=== PATIENT | female | born 1950 | race Caucasian/White ===

== ENCOUNTER 2017-10-26 10:10 | Emergency (ER) | payer MEDICARE, BC ==
[2017-10-26 10:23] VITALS: BP 138/58
--- NOTE | 2017-10-26 11:43 | EDM.PDOC ---
ED HPI GENERAL MEDICAL PROBLEM - General Chief Complaint: Respiratory Problem Stated Complaint: RESPIRATORY ISSUES/DIABETIC Time Seen by Provider: 10/26/17 11:07 Source of Information: Reports: Patient History Limitations: Reports: No Limitations - History of Present Illness INITIAL COMMENTS - FREE TEXT/NARRATIVE: Patient presents to the E.D. complaining of sinus congestion, runny nose, post nasal gtt, and mildly productive cough. Patient states symptoms initially started this past weakened believed to be allergies. Over the course of the week the symptoms have remained persistent. On developed mild productive cough. States she also had some episodes of tactile fever with nothing documented. This morning she was afebrile. She denies any shortness of breath, chest pain, sore throat, ear pain, rash, pain with urination, diarrhea, or recent sick exposures. Of note she did have a headache last night and throughout the course of the evening without stiff neck. She did get her influenza vaccine along with pneumococcal vaccine. She is status post kidney transplant approximately one year ago. She was diagnosed with sinus infection 2 weeks ago and was placed on amoxicillin with resolution. She questions if symptoms she is currently experiencing are viral in etiology. - Related Data Allergies Allergy/AdvReac Type Severity Reaction Status Date / Time omeprazole [From Prilosec] Allergy Cannot Verified 10/26/17 10:23 Remember omeprazole magnesium Allergy Hives Verified 10/26/17 10:23 [From Prilosec] Home Meds: Home Meds Aspirin 81 mg PO DAILY 12/24/15 [History] Calcium Acetate [PhosLo] 4 tab PO TID 12/24/15 [History] Docusate Sodium [Colace] 100 mg PO DAILY 12/24/15 [History] Fluticasone Propionate [Flonase] 1 spray NASBOTH BID 12/24/15 [History] Gabapentin [Neurontin] 100 mg PO DAILY 12/24/15 [History] Pantoprazole [ProTONIX Granules] 40 mg PO DAILY 12/24/15 [History] Paricalcitol [Zemplar] 1 mcg INJECT DAILY 12/24/15 [History] Sertraline [Zoloft] 100 mg PO DAILY 12/24/15 [History] Topiramate [Topamax] 75 mg PO BID 12/24/15 [History] atorvaSTATin [Lipitor] 20 mg PO DAILY 12/24/15 [History] traMADol [Ultram] 50 mg PO Q6H PRN 12/24/15 [History] Acetaminophen 500 mg PO ASDIRECTED PRN 06/27/16 [History] Calcium Carbonate [Calcium] 1 - 2 tab PO ASDIRECTED PRN 06/27/16 [History] Diclofenac Sodium [Voltaren 1% Gel] 1 applicful TRDERM ASDIRECTED PRN 06/27/16 [ History] Fluticasone Propionate [Flonase] 2 puff INH ASDIRECTED PRN 06/27/16 [History] Ketorolac [Acular 0.5% Ophth Soln] 1 - 2 drop EYEBOTH ASDIRECTED 06/27/16 [ History] Lactulose 15 - 30 ml PO ASDIRECTED PRN 06/27/16 [History] Polyethylene Glycol 3350 1 capful PO ASDIRECTED PRN 06/27/16 [History] traZODone 1 - 2 tab PO DAILY 06/27/16 [History] Past Medical History HEENT History: Reports: Glaucoma Cardiovascular History: Reports: High Cholesterol Other Respiratory History: in winter time uses inhaler when get a bad cough or cold. 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 - Past Surgical History HEENT Surgical History: Reports: Tonsillectomy Other HEENT Surgeries/Procedures: several eye surgeries, GI Surgical History: Reports: Appendectomy, Cholecystectomy, Colonoscopy, Hernia Repair/Other Musculoskeletal Surgical History: Reports: Arthroscopic Knee, Knee Replacement Social & Family History - Tobacco Use Smoking Status *Q: Never Smoker - Caffeine Use Caffeine Use: Reports: Coffee, Tea - Recreational Drug Use Recreational Drug Use: No Drug Use in Last 12 Months: No ED ROS GENERAL - Review of Systems Review Of Systems: See Below Constitutional: Reports: Fever (tactile). Denies: Chills, Decreased Appetite HEENT: Reports: Rhinitis. Denies: Ear Pain, Throat Pain Respiratory: Reports: Cough, Sputum. Denies: Shortness of Breath, Wheezing, Pleuritic Chest Pain, Hemoptysis Cardiovascular: Reports: No Symptoms GI/Abdominal: Reports: No Symptoms Musculoskeletal: Reports: Muscle Pain (generalized) Skin: Reports: No Symptoms Neurological: Reports: Headache (intermittent) ED EXAM, GENERAL - Physical Exam Exam: See Below Exam Limited By: No Limitations General Appearance: Alert, WD/WN, No Apparent Distress Eye Exam: Bilateral Eye: PERRL Ears: Normal External Exam, Normal Canal, Hearing Grossly Normal, Normal TMs Nose: Normal Inspection, Nasal Swelling, Nasal Drainage, Clear Rhinorrhea Throat/Mouth: Normal Inspection, Normal Oropharynx, Normal Voice, No Airway Compromise Neck: Normal Inspection, Supple, Non-Tender, Full Range of Motion. No: Lymphadenopathy (L), Lymphadenopathy (R) Respiratory/Chest: No Respiratory Distress, Lungs Clear, Normal Breath Sounds, No Accessory Muscle Use Cardiovascular: Normal Peripheral Pulses, Regular Rate, Rhythm Peripheral Pulses: 2+: Radial (R) GI/Abdominal: Normal Bowel Sounds, Soft, Non-Tender, No Organomegaly, No Distention Extremities: Normal Inspection, Normal Range of Motion, Non-Tender, Normal Capillary Refill, Pedal Edema (trace bilaterally, compression socks on. ) Neurological: Alert, Oriented, CN II-XII Intact, Normal Cognition Psychiatric: Normal Affect, Normal Mood Skin Exam: Warm, Dry, Intact, Normal Color, No Rash Course - Vital Signs Last Recorded V/S: Last Vital Signs Temp 97.6 F 10/26/17 10:19 Pulse 77 10/26/17 10:19 Resp 18 10/26/17 10:19 BP 138/58 L 10/26/17 10:19 Pulse Ox 96 10/26/17 10:19 - Orders/Labs/Meds Orders: Active Orders 24 hr Category Date Time Status Chest 2V [CR] Stat Exams 10/26/17 11:31 Taken Labs: Laboratory Tests 10/26/17 10/26/17 Range/Units 11:55 11:55 WBC 4.47 (3.98-10.04) K/mm3 RBC 4.77 (3.98-5.22) M/mm3 Hgb 12.2 (11.2-15.7) gm/L Hct 41.2 (34.1-44.9) % MCV 86.4 (79.4-94.8) fl MCH 25.6 (25.6-32.2) pg MCHC 29.6 L (32.2-35.5) g/dl RDW Std Deviation 56.3 H (36.4-46.3) fL Plt Count 211 (182-369) K/mm3 MPV 8.9 L (9.4-12.3) fl Neut % (Auto) 77.2 H (34.0-71.1) % Lymph % (Auto) 8.1 L (19.3-51.7) % Ransom % (Auto) 12.1 (4.7-12.5) % Eos % (Auto) 2.0 (0.7-5.8) Baso % (Auto) 0.4 (0.1-1.2) % Neut # (Auto) 3.45 (1.56-6.13) K/mm3 Lymph # (Auto) 0.36 L (1.18-3.74) K/mm3 Ransom # (Auto) 0.54 H (0.24-0.36) K/mm3 Eos # (Auto) 0.09 (0.04-0.36) K/mm3 Baso # (Auto) 0.02 (0.01-0.08) K/mm3 Manual Slide Review Abnormal smear Sodium 141 (136-145) mEq/L Potassium 5.0 (3.5-5.1) mEq/L Chloride 107 (98-107) mEq/L Carbon Dioxide 25 (21-32) mEq/L Anion Gap 14.0 (5-15) BUN 28 H (7-18) mg/dL Creatinine 1.3 H (0.55-1.02) mg/dL Est Cr Clr Drug Dosing 32.30 mL/min Estimated GFR (MDRD) 41 (>60) mL/min BUN/Creatinine Ratio 21.5 H (14-18) Glucose 184 H (80-115) mg/dL Calcium 8.5 (8.5-10.1) mg/dL Total Bilirubin 0.5 (0.2-1.0) mg/dL AST 19 (15-37) U/L ALT 18 (14-59) U/L Alkaline Phosphatase 114 (46-116) U/L C-Reactive Protein 2.1 H* (<1.0) mg/dL Total Protein 7.0 (6.4-8.2) g/dl Albumin 3.2 L (3.4-5.0) g/dl Globulin 3.8 gm/dL Albumin/Globulin Ratio 0.8 L (1-2) - Re-Assessments/Exams Free Text/Narrative Re-Assessment/Exam: Labs reviewed: White blood cell count 4.47, hemoglobin 12.2, neutrophil percentage is 77.2, with slight percentage is8.1. Sodium 141, potassium 5.0, BUN 28, AG 14.0, creatinine 1.3, glucose 184, CRP 2.1. Influenza screen was positive for influenza A. She results of labs and influenza screen with patient. Symptoms started morning thus we are out of the 48 hour window for treatment. In addition creatinine 1.3 is baseline per patient. CXR reviewed with Dr. Green.No obvious pulmonary infiltrates noted. Final Interpretation pending. I offered to admit the patient since she is at high risk for doing bad with current infection. Patient refuses to be admitted to the hospital. Will discharge patient home with instructions as documented. Departure - Departure Time of Disposition: 12:55 Disposition: Home, Self-Care 01 Condition: Good Clinical Impression: Influenza, Influenza A - Discharge Information Instructions: Upper Respiratory Infection, Adult, [id number] Referrals: Galina Cohen, [employer]LECT[employer]ICAL ENGINEER [Primary Care Provider] - Forms: ED Department Discharge Additional Instructions: As discussed you have influenza A which is a viral infection that will run its course normally over the next 7-10 days. You may be at risk for doing worse due to your history and current medications you are on. Suggest pushing the fluids ensure adequate rest. Take Tylenol as needed for generalized body aches, headaches, and fever. Suggest returning back to the ED if you develop any new or worsening symptoms. - My Orders Last 24 Hours: My Active Orders 10/26/17 11:31 Chest 2V [CR] Stat - Assessment/Plan Last 24 Hours: My Active Orders 10/26/17 11:31 Chest 2V [CR] Stat
--- NOTE | 2017-10-26 16:06 | CR ---
Chest: Two views of the chest were obtained. Comparison: No prior chest x-ray. Heart size is slightly enlarged. Pulmonary vessels are minimally congested. Lungs otherwise are clear. Mild degenerative change is scattered within the spine. Impression: 1. Cardiomegaly with slight pulmonary vascular congestion. Uncertain if this is acute or chronic. 2. No pneumonia is identified. Difficult to exclude mild superimposed bronchitis. Diagnostic code #3
== END 2017-10-26 13:25 | disposition home or self-care (01) ==
LOC: JD.ED 10:10
DX: J10.1 Influenza due to other identified influenza virus with other respiratory manifestations (principal); E78.00 Pure hypercholesterolemia, unspecified; Z88.8 Allergy status to other drugs, medicaments and biological substances; Z79.82 Long term (current) use of aspirin; Z79.899 Other long term (current) drug therapy
CPT/HCPCS: 36415; 71020; 71020-26; 80053; 85025; 86140; 87804; 99284

== ENCOUNTER 2018-07-01 20:26 | Inpatient (IN) | payer MEDICARE, BC ==
[2018-07-01] MEDS ORDERED: Furosemide 40 MG/4 ML VIAL IVPUSH ONE (21:02)
--- NOTE | 2018-07-01 21:54 | EDM.PDOC ---
ED HPI GENERAL MEDICAL PROBLEM - General Chief Complaint: Respiratory Problem Stated Complaint: CHILLS VOMITING Time Seen by Provider: 07/01/18 20:38 Source of Information: Reports: Patient, Family () History Limitations: Reports: No Limitations - History of Present Illness INITIAL COMMENTS - FREE TEXT/NARRATIVE: The patient states that she developed dyspnea at rest, nausea, and vomiting this morning. She denies orthopnea. She states that she has not been wheezing. She states that she has been coughing, productive of clear sputum. She reports dysuria and urinary frequency for the past 2 days. No recent fever or chills. No recent constipation or diarrhea. No recent abdominal pain. The patient states that she has not had similar dyspnea in the past, however, she reports frequent urinary tract infections with similar urinary symptoms. Here in the ED, the patient is found to be tachycardic and tachypneic, saturating 87% on room air, 93% on 3 L of oxygen per nasal cannula. - Related Data Allergies Allergy/AdvReac Type Severity Reaction Status Date / Time omeprazole [From Prilosec] Allergy Cannot Verified 07/01/18 20:39 Remember omeprazole magnesium Allergy Hives Verified 07/01/18 20:39 [From Prilosec] Home Meds: Home Meds Aspirin 81 mg PO DAILY 12/24/15 [History] Calcium Acetate [PhosLo] 4 tab PO TID 12/24/15 [History] Docusate Sodium [Colace] 100 mg PO DAILY 12/24/15 [History] Fluticasone Propionate [Flonase] 1 spray NASBOTH BID 12/24/15 [History] Gabapentin [Neurontin] 100 mg PO DAILY 12/24/15 [History] Pantoprazole [ProTONIX Granules] 40 mg PO DAILY 12/24/15 [History] Paricalcitol [Zemplar] 1 mcg INJECT DAILY 12/24/15 [History] Sertraline [Zoloft] 100 mg PO DAILY 12/24/15 [History] Topiramate [Topamax] 75 mg PO BID 12/24/15 [History] atorvaSTATin [Lipitor] 20 mg PO DAILY 12/24/15 [History] traMADol [Ultram] 50 mg PO Q6H PRN 12/24/15 [History] Acetaminophen 500 mg PO ASDIRECTED PRN 06/27/16 [History] Calcium Carbonate [Calcium] 1 - 2 tab PO ASDIRECTED PRN 06/27/16 [History] Diclofenac Sodium [Voltaren 1% Gel] 1 applicful TRDERM ASDIRECTED PRN 06/27/16 [ History] Fluticasone Propionate [Flonase] 2 puff INH ASDIRECTED PRN 06/27/16 [History] Ketorolac [Acular 0.5% Ophth Soln] 1 - 2 drop EYEBOTH ASDIRECTED 06/27/16 [ History] Lactulose 15 - 30 ml PO ASDIRECTED PRN 06/27/16 [History] Polyethylene Glycol 3350 1 capful PO ASDIRECTED PRN 06/27/16 [History] traZODone 1 - 2 tab PO DAILY 06/27/16 [History] Past Medical History HEENT History: Reports: Glaucoma Cardiovascular History: Reports: High Cholesterol Genitourinary History: Reports: Chronic Renal Insuffiency (on HD until kidney transplant 08/10/2016) COURT ORDERLY History: Reports: Neurological History: Reports: Seizure Psychiatric History: Reports: Anxiety, Depression Endocrine/Metabolic History: Reports: Diabetes, Type II, Obesity/BMI 30+ - Past Surgical History HEENT Surgical History: Reports: Laser Surgery (x 4 or 5), Tonsillectomy GI Surgical History: Reports: Appendectomy, Cholecystectomy, Colonoscopy, Hernia , Abdominal Female Surgical History: Reports: Other (See Below) (Kidney transplant 2015) Musculoskeletal Surgical History: Reports: Arthroscopic Knee (left), Knee Replacement (right) Social & Family History - Tobacco Use Smoking Status *Q: Never Smoker - Caffeine Use Caffeine Use: Reports: None - Recreational Drug Use Recreational Drug Use: No ED ROS GENERAL - Review of Systems Review Of Systems: ROS reveals no pertinent complaints other than HPI. ED EXAM, GENERAL - Physical Exam Exam: See Below Exam Limited By: No Limitations General Appearance: Alert, WD/WN, Mild Distress (Appears somewhat dyspneic) Eye Exam: Bilateral Eye: EOMI, Normal Inspection Ears: Normal External Exam, Hearing Grossly Normal Nose: Normal Inspection, No Blood Throat/Mouth: Normal Inspection, Normal Lips, Normal Voice, No Airway Compromise Head: Atraumatic, Normocephalic Neck: Normal Inspection, Full Range of Motion Respiratory/Chest: No Accessory Muscle Use, Crackles (to 1/[address] up bilaterally) . No: Rhonchi, Wheezing, Prolonged Expiration Cardiovascular: Normal Peripheral Pulses, No Gallop, No JVD, No Rub, Tachycardia (regular) Peripheral Pulses: 4+: Radial (L), Radial (R) GI/Abdominal: Normal Bowel Sounds, Soft, Non-Tender, No Organomegaly, No Distention, No Abnormal Bruit, No Mass, Other (Obese) Rectal (Female) Exam: Deferred Back Exam: Normal Inspection, Full Range of Motion, NT Extremities: Normal Inspection, Normal Range of Motion, Normal Capillary Refill , Other (1+ pretibial edema bilaterally) Neurological: Alert, Oriented, Normal Cognition, No Motor/Sensory Deficits Psychiatric: Normal Affect Skin Exam: Warm, Dry, Intact, Normal Color, No Rash EKG INTERPRETATION EKG Date: 07/01/18 Time: 21:26 Rhythm: NSR Rate (Beats/Min): 94 [place]: Normal P-Wave: Present QRS: Normal ST-T: Normal QT: Normal Comparison: NA - No Prior EKG Course - Vital Signs Last Recorded V/S: Last Vital Signs Temp 37.7 C 07/01/18 20:36 Pulse 84 07/01/18 23:31 Resp 35 H 07/01/18 23:31 BP 163/50 H 07/01/18 23:31 Pulse Ox 96 07/01/18 23:31 - Orders/Labs/Meds Orders: Active Orders 24 hr Category Date Time Status Admission Status [Patient Status] [ADT] Routine ADT 07/02/18 00:26 Ordered BIPAP Adult [RT BiPAP/CPAP] [RC] ASDIRECTED Care 07/01/18 20:59 Active EKG Documentation Completion [RC] STAT Care 07/01/18 21:00 Active Alberto Catheter Insertion [Insert Urinary Catheter] [OM. Care 07/01/18 21:15 Ordered PC] Q24H Urinary Catheter Assessment [RC] ASDIRECTED Care 07/01/18 21:02 Active Chest 1V Frontal [CR] Stat Exams 07/01/18 21:00 Taken CULTURE BLOOD [BC] Stat Lab 07/01/18 21:10 Received CULTURE BLOOD [BC] Stat Lab 07/01/18 21:20 Received CULTURE URINE [RM] Stat Lab 07/01/18 21:37 Received Blood Culture x2 Reflex Set [OM.PC] Stat Oth 07/01/18 21:00 Ordered Labs: Laboratory Tests 07/01/18 07/01/18 07/01/18 Range/Units 21:10 21:10 21:10 WBC 3.17 L (3.98-10.04) K/mm3 RBC 3.87 L (3.98-5.22) M/mm3 Hgb 10.5 L (11.2-15.7) gm/L Hct 36.8 (34.1-44.9) % MCV 95.1 H (79.4-94.8) fl MCH 27.1 (25.6-32.2) pg MCHC 28.5 L (32.2-35.5) g/dl RDW Std Deviation 52.7 H (36.4-46.3) fL Plt Count 156 L (182-369) K/mm3 MPV 10.2 (9.4-12.3) fl Neutrophils % (Manual) 89 H (40-60) % Band Neutrophils % 0 (0-10) % Lymphocytes % (Manual) 7 L (20-40) % Atypical Lymphs % 0 % Monocytes % (Manual) 4 (2-10) % Eosinophils % (Manual) 0 L (0.7-5.8) % Basophils % (Manual) 0 L (0.1-1.2) Platelet Estimate Adequate Polychromasia Few Hypochromasia 1+ slight Anisocytosis 1+ slight Ovalocytes 1+ slight RBC Morph Comment Not Reportable PT 12.9 H (9.5-12.1) SECONDS INR 1.19 APTT 34 H (24-31) SECONDS D-Dimer, Quantitative 3.64 H (0.19-0.50) mg/L Puncture Site ABG pH (7.35-7.45) ABG pCO2 (35.0-45.0) mmHg ABG pO2 (80.0-100.0) mmHg ABG HCO3 (22.0-26.0) meq/L ABG O2 Saturation (96.0-97.0) % ABG Base Excess (-2-2.0) Bienvenido Test A-a Gradient mmHg O2 Delivery Device Oxygen Flow Rate FiO2 (21.00-100.00) % Pressure Support cmH2O Sodium 140 (136-145) mEq/L Potassium 4.7 (3.5-5.1) mEq/L Chloride 109 H (98-107) mEq/L Carbon Dioxide 18 L (21-32) mEq/L Anion Gap 17.7 H (5-15) BUN 26 H (7-18) mg/dL Creatinine 1.9 H (0.55-1.02) mg/dL Est Cr Clr Drug Dosing 26.16 mL/min Estimated GFR (MDRD) 26 (>60) mL/min BUN/Creatinine Ratio 13.7 L (14-18) Glucose 358 H (80-115) mg/dL Lactic Acid (0.4-2.0) mmol/L Calcium 7.6 L (8.5-10.1) mg/dL Total Bilirubin 0.8 (0.2-1.0) mg/dL AST 47 H (15-37) U/L ALT 30 (14-59) U/L Alkaline Phosphatase 134 H (46-116) U/L Troponin I < 0.017 (0.00-0.056) ng/mL NT-Pro-B Natriuret Pep (0-125) pg/mL Total Protein 6.7 (6.4-8.2) g/dl Albumin 3.4 (3.4-5.0) g/dl Globulin 3.3 gm/dL Albumin/Globulin Ratio 1.0 (1-2) Urine Color (Yellow) Urine Appearance (Clear) Urine pH (5.0-8.0) Ur Specific [place] (1.005-1.030) Urine Protein (Negative) Urine Glucose (UA) (Negative) Urine Ketones (Negative) Urine Occult Blood (Negative) Urine Nitrite (Negative) Urine Bilirubin (Negative) Urine Urobilinogen (0.2-1.0) Ur Leukocyte Esterase (Negative) Urine RBC (0-5) /hpf Urine WBC (0-5) /hpf Urine WBC Clumps (NOT SEEN) /hpf Ur Epithelial Cells (0-5) /hpf Urine Bacteria (FEW) /hpf Hyaline Casts (0-5) /lpf Urine Mucus (FEW) /hpf Ketones (0.0-0.3) mM 07/01/18 07/01/18 07/01/18 Range/Units 21:10 21:10 21:10 WBC (3.98-10.04) K/mm3 RBC (3.98-5.22) M/mm3 Hgb (11.2-15.7) gm/L Hct (34.1-44.9) % MCV (79.4-94.8) fl MCH (25.6-32.2) pg MCHC (32.2-35.5) g/dl RDW Std Deviation (36.4-46.3) fL Plt Count (182-369) K/mm3 MPV (9.4-12.3) fl Neutrophils % (Manual) (40-60) % Band Neutrophils % (0-10) % Lymphocytes % (Manual) (20-40) % Atypical Lymphs % % Monocytes % (Manual) (2-10) % Eosinophils % (Manual) (0.7-5.8) % Basophils % (Manual) (0.1-1.2) Platelet Estimate Polychromasia Hypochromasia Anisocytosis Ovalocytes RBC Morph Comment PT (9.5-12.1) SECONDS INR APTT (24-31) SECONDS D-Dimer, Quantitative (0.19-0.50) mg/L Puncture Site ABG pH (7.35-7.45) ABG pCO2 (35.0-45.0) mmHg ABG pO2 (80.0-100.0) mmHg ABG HCO3 (22.0-26.0) meq/L ABG O2 Saturation (96.0-97.0) % ABG Base Excess (-2-2.0) Bienvenido Test A-a Gradient mmHg O2 Delivery Device Oxygen Flow Rate FiO2 (21.00-100.00) % Pressure Support cmH2O Sodium (136-145) mEq/L Potassium (3.5-5.1) mEq/L Chloride (98-107) mEq/L Carbon Dioxide (21-32) mEq/L Anion Gap (5-15) BUN (7-18) mg/dL Creatinine (0.55-1.02) mg/dL Est Cr Clr Drug Dosing mL/min Estimated GFR (MDRD) (>60) mL/min BUN/Creatinine Ratio (14-18) Glucose (80-115) mg/dL Lactic Acid 2.1 H (0.4-2.0) mmol/L Calcium (8.5-10.1) mg/dL Total Bilirubin (0.2-1.0) mg/dL AST (15-37) U/L ALT (14-59) U/L Alkaline Phosphatase (46-116) U/L Troponin I (0.00-0.056) ng/mL NT-Pro-B Natriuret Pep 4586 H (0-125) pg/mL Total Protein (6.4-8.2) g/dl Albumin (3.4-5.0) g/dl Globulin gm/dL Albumin/Globulin Ratio (1-2) Urine Color (Yellow) Urine Appearance (Clear) Urine pH (5.0-8.0) Ur Specific [place] (1.005-1.030) Urine Protein (Negative) Urine Glucose (UA) (Negative) Urine Ketones (Negative) Urine Occult Blood (Negative) Urine Nitrite (Negative) Urine Bilirubin (Negative) Urine Urobilinogen (0.2-1.0) Ur Leukocyte Esterase (Negative) Urine RBC (0-5) /hpf Urine WBC (0-5) /hpf Urine WBC Clumps (NOT SEEN) /hpf Ur Epithelial Cells (0-5) /hpf Urine Bacteria (FEW) /hpf Hyaline Casts (0-5) /lpf Urine Mucus (FEW) /hpf Ketones 0.23 (0.0-0.3) mM 07/01/18 07/01/18 07/01/18 Range/Units 21:25 21:37 23:35 WBC (3.98-10.04) K/mm3 RBC (3.98-5.22) M/mm3 Hgb (11.2-15.7) gm/L Hct (34.1-44.9) % MCV (79.4-94.8) fl MCH (25.6-32.2) pg MCHC (32.2-35.5) g/dl RDW Std Deviation (36.4-46.3) fL Plt Count (182-369) K/mm3 MPV (9.4-12.3) fl Neutrophils % (Manual) (40-60) % Band Neutrophils % (0-10) % Lymphocytes % (Manual) (20-40) % Atypical Lymphs % % Monocytes % (Manual) (2-10) % Eosinophils % (Manual) (0.7-5.8) % Basophils % (Manual) (0.1-1.2) Platelet Estimate Polychromasia Hypochromasia Anisocytosis Ovalocytes RBC Morph Comment PT (9.5-12.1) SECONDS INR APTT (24-31) SECONDS D-Dimer, Quantitative (0.19-0.50) mg/L Puncture Site Rt radial Rt radial ABG pH 7.34 L 7.35 (7.35-7.45) ABG pCO2 29.5 L 32.8 L (35.0-45.0) mmHg ABG pO2 83.0 70.0 L (80.0-100.0) mmHg ABG HCO3 15.5 L 17.6 L (22.0-26.0) meq/L ABG O2 Saturation 95.7 L 91.4 L (96.0-97.0) % ABG Base Excess -8.8 L -6.7 L (-2-2.0) Bienvenido Test Positive Positive A-a Gradient 85 68 mmHg O2 Delivery Device Bipap Bipap Oxygen Flow Rate 3.0 2.0 FiO2 32.00 28.00 (21.00-100.00) % Pressure Support 8.0 cmH2O Sodium (136-145) mEq/L Potassium (3.5-5.1) mEq/L Chloride (98-107) mEq/L Carbon Dioxide (21-32) mEq/L Anion Gap (5-15) BUN (7-18) mg/dL Creatinine (0.55-1.02) mg/dL Est Cr Clr Drug Dosing mL/min Estimated GFR (MDRD) (>60) mL/min BUN/Creatinine Ratio (14-18) Glucose (80-115) mg/dL Lactic Acid (0.4-2.0) mmol/L Calcium (8.5-10.1) mg/dL Total Bilirubin (0.2-1.0) mg/dL AST (15-37) U/L ALT (14-59) U/L Alkaline Phosphatase (46-116) U/L Troponin I (0.00-0.056) ng/mL NT-Pro-B Natriuret Pep (0-125) pg/mL Total Protein (6.4-8.2) g/dl Albumin (3.4-5.0) g/dl Globulin gm/dL Albumin/Globulin Ratio (1-2) Urine Color Yellow (Yellow) Urine Appearance Clear (Clear) Urine pH 6.5 (5.0-8.0) Ur Specific [place] 1.025 (1.005-1.030) Urine Protein 3+ H (Negative) Urine Glucose (UA) 2+ H (Negative) Urine Ketones Negative (Negative) Urine Occult Blood 2+ H (Negative) Urine Nitrite Positive H (Negative) Urine Bilirubin Negative (Negative) Urine Urobilinogen 0.2 (0.2-1.0) Ur Leukocyte Esterase Negative (Negative) Urine RBC 10-20 H (0-5) /hpf Urine WBC 40-50 H (0-5) /hpf Urine WBC Clumps Few (NOT SEEN) /hpf Ur Epithelial Cells 0-5 (0-5) /hpf Urine Bacteria Many H (FEW) /hpf Hyaline Casts 0-5 (0-5) /lpf Urine Mucus Not seen (FEW) /hpf Ketones (0.0-0.3) mM Meds: Medications Discontinued Medications Generic Name Dose Route Start Last Admin Trade Name Freq PRN Reason Stop Dose Admin Enoxaparin Sodium 95 mg 07/01/18 22:28 07/01/18 22:42 Lovenox SUBCUT 07/01/18 22:29 95 mg ONETIME STA Administration Furosemide 40 mg 07/01/18 21:02 07/01/18 21:39 Lasix IVPUSH 07/01/18 21:03 40 mg NOW ONE Administration Insulin Human Regular 8 unit 07/01/18 22:43 07/01/18 22:56 Humulin R SUBCUT 07/01/18 22:44 8 units ONETIME STA Administration Trimethoprim/Sulfamethoxazole 1 tab 07/01/18 23:14 07/01/18 23:18 Septra Ds PO 07/01/18 23:15 1 tab ONETIME ONE Administration - Re-Assessments/Exams Free Text/Narrative Re-Assessment/Exam: 07/01/18 21:46 The patient's ABG, obtained with the patient on BiPAP with supplemental oxygen, represents a chronic/compensated metabolic acidosis with adequate oxygenation. 07/01/18 22:03 Portable chest radiograph, obtained with the patient on BiPAP, reviewed. There is likely cardiomegaly, and there is mild pulmonary vascular congestion. No pleural effusion seen, however, the horizontal fissure is visible. No focal infiltrate. No pneumothorax. Formal read per the Radiologist pending. 07/01/18 23:14 The patient's urine is consistent with a UTI. I have ordered a urine culture, and will start the patient on oral Bactrim. The patient's D-dimer has returned significantly elevated at 3.64, however, her BUN/Cr are elevated at 26/1.9. Her BUN/Cr was 29/2.1 on 05/28/2018. No prior D- dimer to compare. The patient was given Lovenox 1 mg/kg SQ. The patient's lactic acid level is elevated at 2.1, and her bicarbonate level returned reduced at 18, with an anion gap of 17.7. The patient's blood glucose was found to be 358. This indicates a mild anion gap metabolic acidosis, possibly due to her renal insufficiency possibly due to DKA. Blood cultures have been obtained. I have ordered a serum ketone level. The patient received 8 units of regular insulin SQ. The patient's BNP is elevated at 4586. No prior BNP to compare. As above, the patient appears to be in CHF. The patient is found to be leukopenic with a WBC count of 3.17. Her WBC count was depressed at 2.50 on 05/28/2018. 07/01/18 23:20 Test results discussed with the patient. Her has already gone home. I am recommending admission to the hospital, and the patient has agreed. Case discussed with Dr. Monge at 23:15. She accepts the patient for admission to the intensive care unit. 07/02/18 00:16 The patient's serum ketone level is normal. Departure - Departure Time of Disposition: 23:20 Disposition: Admitted As Inpatient 64 Condition: Fair Clinical Impression: Pulmonary edema, Lactic acidosis, UTI (urinary tract infection), Chronic kidney disease, Elevated d-dimer, Leukopenia, Hyperglycemia due to type 2 diabetes mellitus - Discharge Information *PRESCRIPTION DRUG MONITORING PROGRAM REVIEWED*: Not Applicable *COPY OF PRESCRIPTION DRUG MONITORING REPORT IN PATIENT ELVIRA: Not Applicable Referrals: PCP,Not In Area [Primary Care Provider] - Forms: ED Department Discharge - My Orders Last 24 Hours: My Active Orders 07/01/18 20:59 BIPAP Adult [RT BiPAP/CPAP] [RC] ASDIRECTED 07/01/18 21:00 EKG Documentation Completion [RC] STAT Chest 1V Frontal [CR] Stat Blood Culture x2 Reflex Set [OM.PC] Stat 07/01/18 21:02 Urinary Catheter Assessment [RC] ASDIRECTED 07/01/18 21:10 CULTURE BLOOD [BC] Stat 07/01/18 21:15 Alberto Catheter Insertion [Insert Urinary Catheter] [OM.PC] Q24H 07/01/18 21:20 CULTURE BLOOD [BC] Stat 07/01/18 21:37 CULTURE URINE [RM] Stat 07/02/18 00:26 Admission Status [Patient Status] [ADT] Routine - Assessment/Plan Last 24 Hours: My Active Orders 07/01/18 20:59 BIPAP Adult [RT BiPAP/CPAP] [RC] ASDIRECTED 07/01/18 21:00 EKG Documentation Completion [RC] STAT Chest 1V Frontal [CR] Stat Blood Culture x2 Reflex Set [OM.PC] Stat 07/01/18 21:02 Urinary Catheter Assessment [RC] ASDIRECTED 07/01/18 21:10 CULTURE BLOOD [BC] Stat 07/01/18 21:15 Alberto Catheter Insertion [Insert Urinary Catheter] [OM.PC] Q24H 07/01/18 21:20 CULTURE BLOOD [BC] Stat 07/01/18 21:37 CULTURE URINE [RM] Stat 07/02/18 00:26 Admission Status [Patient Status] [ADT] Routine
[2018-07-01] MEDS ORDERED: Enoxaparin 100 MG/1 ML Syringe SUBCUT STA (22:28)
[2018-07-01] MEDS ORDERED: Insulin Regular, Human 100 Units/ML 3 ML Vial SUBCUT STA (22:43)
[2018-07-01] MEDS ORDERED: Sulfamethoxazole/Trimethoprim 800-160 MG Tab PO ONE (23:14)
[2018-07-02] MEDS ORDERED: Albuterol/Ipratropium 3.0-0.5 MG/3 ML Neb Soln NEB PRN (01:16)
[2018-07-02] MEDS ORDERED: cefTRIAXone 2 GM in Sodium Chloride 0.9% 100 ML IV ONE (01:17)
[2018-07-02] MEDS ORDERED: Azithromycin 500 MG in Sodium Chloride 0.9% 250 ML IV ONE (02:30)
[2018-07-02] MEDS: Insulin Lispro 100 Unit/ML 3 ML KwikPen SUBCUT SCH ×4 (06:31→21:24)
[2018-07-02] MEDS ORDERED: Insuln Aspart Prot/Insulin Aspart 100 Units/ML 3 ML FlexPen SUBCUT SCH (07:00)
--- NOTE | 2018-07-02 09:43 | CR ---
Chest: Portable view of the chest was obtained. Comparison: Prior chest x-ray of 10/26/17. Heart size at the upper limits of normal. Upper mediastinum is normal. Perihilar markings are mildly increased and difficult to exclude slight bronchitis. No additional parenchymal density is seen. Bony structures are grossly intact. Impression: 1. Slight increased perihilar markings, difficult to exclude mild bronchitis. 2. Heart size at the upper limits of normal. Diagnostic code #3
--- NOTE | 2018-07-02 09:43 | CR ---
Chest: Two views of the chest are obtained. Comparison: Prior chest x-ray of 07/01/18. Heart size appears at the upper limits of normal. Tortuous thoracic aorta is seen. Central lung markings are mildly increased which appear stable. No acute parenchymal changes otherwise seen. Surgical clips are seen within the abdomen. Slight compression deformity is noted within the lower thoracic spine which appears stable. Mild degenerative change is scattered within the spine. Impression: 1. Findings as noted above. No significant change from previous study. Diagnostic code #2
--- NOTE | 2018-07-02 12:51 | PCM.HP ---
H&P History of Present Illness - General Date of Service: 07/01/18 Admit Problem/Dx: Admission Diagnosis/Problem Admission Diagnosis/Problem Pulmonary edema Source of Information: Provider History Limitations: Reports: No Limitations - History of Present Illness Initial Comments - Free Text/Narative: 67 year old female s/p renal transplant with hx of recurrent UTI presents with constitutional symptoms. She admits to fever/chills and malaise. when seen in the ED, she was on BiPAP. The patient was diuresed with Lasix IV with an improvement of her urine output. The ED work suggest an acute infectious process pulmonary and/or genitourinary. Appropriate specimens will be obtained. She will be admitted to the ICU and is a full code. Broad spectrum antibiotic will be given, as well as an increase in steroid for stress dose. Onset of Symptoms: Reports: Sudden Symptom Onset Date: 06/29/18 Duration of Symptoms: Reports: Day(s):, Getting Worse Location: Reports: Chest, Abdomen, Generalized Severity: Moderate Improves with: Reports: Medication Worsens with: Reports: None Associated Symptoms: Reports: cough w sputum, Fever/Chills, Loss of Appetite, Nausea/Vomiting, Shortness of Breath, Weakness - Related Data Allergies/Adverse Reactions: Allergies Allergy/AdvReac Type Severity Reaction Status Date / Time adhesive Allergy Itching Verified 07/02/18 12:48 latex Allergy Rash Verified 07/02/18 12:48 nickel Allergy Itching Verified 07/02/18 12:48 omeprazole [From Prilosec] Allergy Cannot Verified 07/02/18 02:57 Remember omeprazole magnesium Allergy Hives Verified 07/02/18 02:57 [From Prilosec] Home Medications: Home Meds Acetaminophen 1,000 mg PO Q6HR PRN 07/02/18 [History] Aspirin [Halfprin] 81 mg PO DAILY 07/02/18 [History] Docusate Sodium [Colace] 200 mg PO DAILY PRN 07/02/18 [History] Fluticasone Propionate [Flonase] 50 mcg NASBOTH DAILY PRN 07/02/18 [History] Furosemide [Lasix] 20 mg PO BID 07/02/18 [History] Gabapentin [Neurontin] 100 mg PO DAILY 07/02/18 [History] Insulin Glargine,Hum.Rec.Anlog [Lantus Solostar] 14 units SQ DAILY 07/02/18 [ History] Insulin Lispro [Humalog] 5 - 15 unit SQ QID 07/02/18 [History] Loratadine/Pseudoephedrine [Loratadine-Pseudoephed 10-240] 1 each PO DAILY 07/02 [History] Mycophenolate Mofetil [Cellcept] 500 mg PO BID 07/02/18 [History] Pantoprazole [ProTONIX] 40 mg PO DAILY 07/02/18 [History] Sertraline [Zoloft] 150 mg PO DAILY 07/02/18 [History] Sodium Bicarbonate 1,300 mg PO BID 07/02/18 [History] Sulfamethoxazole/Trimethoprim [Bactrim Ds Tablet] 1 each PO MOWEFR 07/02/18 [ History] Tacrolimus [Prograf] 2 mg PO BID 07/02/18 [History] Tacrolimus [Prograf] 10 mg PO BID 07/02/18 [History] atorvaSTATin [Lipitor] 20 mg PO DAILY 07/02/18 [History] predniSONE [Prednisone] 5 mg PO DAILY 07/02/18 [History] Past Medical History HEENT History: Reports: Glaucoma Cardiovascular History: Reports: High Cholesterol Other Respiratory History: in winter time uses inhaler when get a bad cough or cold. Gastrointestinal History: Reports: Cirrhosis Other Gastrointestinal History: liver failure Genitourinary History: Reports: Chronic Renal Insuffiency Other Genitourinary History: dialysis m,w,f, [employer] History: Reports: Neurological History: Reports: Seizure Psychiatric History: Reports: Anxiety, Depression Endocrine/Metabolic History: Reports: Diabetes, Type II, Obesity/BMI 30+ Other Endocrine/Metabolic History: diabetes controlled with diet. Immunologic History: Reports: Solid Organ Transplant Other Immunologic History: Kidney transplant 2 years ago (2016) - Past Surgical History HEENT Surgical History: Reports: Laser Surgery, Tonsillectomy GI Surgical History: Reports: Appendectomy, Cholecystectomy, Colonoscopy, Hernia , Abdominal Female Surgical History: Reports: Other (See Below) Musculoskeletal Surgical History: Reports: Arthroscopic Knee, Knee Replacement Social & Family History - Family History Family Medical History: Noncontributory - Tobacco Use Smoking Status *Q: Never Smoker Second Hand Smoke Exposure: No - Caffeine Use Caffeine Use: Reports: Coffee - Recreational Drug Use Recreational Drug Use: No H&P Review of Systems - Review of Systems: Review Of Systems: See Below General: Reports: Fever, Chills, Malaise, Weakness, Decreased Appetite HEENT: Reports: No Symptoms Pulmonary: Reports: Shortness of Breath Cardiovascular: Reports: Lightheadedness Gastrointestinal: Reports: No Symptoms Genitourinary: Reports: Dysuria, Frequency, Burning Musculoskeletal: Reports: No Symptoms Skin: Reports: No Symptoms Psychiatric: Reports: Confusion Neurological: Reports: No Symptoms Hematologic/Lymphatic: Reports: No Symptoms Immunologic: Reports: No Symptoms Exam - Exam Exam: See Below - Vital Signs Vital Signs: Last Vital Signs Temp 37.7 C 07/02/18 12:00 Pulse 81 07/02/18 06:00 Resp 14 07/02/18 12:00 BP 132/58 L 07/02/18 12:00 Pulse Ox 98 07/02/18 12:00 Weight: 93.712 kg - Exam Quality Assessment: Supplemental Oxygen, DVT Prophylaxis General: Alert, Oriented, Mild Distress HEENT: Mucosa Moist & [place], Nares Patent, Normal Nasal Septum, Pupils Equal, Pupils Reactive, PERRLA Neck: Trachea Midline Lungs: Normal Respiratory Effort Cardiovascular: Regular Rate, Regular Rhythm GI/Abdominal Exam: Normal Bowel Sounds, Soft, Non-Tender, No Organomegaly, No Distention (Female) Exam: Deferred Rectal (Female) Exam: Deferred Back Exam: Normal Inspection Extremities: Normal Inspection Skin: Warm Neurological: Cranial Nerves Intact Neuro Extensive - Mental Status: Alert, Oriented x3 Neuro Extensive - Motor, Sensory, Reflexes: CN II-XII Intact Psychiatric: Alert, Anxious - Patient Data Lab Results Last 24 hrs: Laboratory Results - last 24 hr 07/01/18 07/01/18 07/01/18 Range/Units 21:10 21:10 21:10 WBC 3.17 L (3.98-10.04) K/mm3 RBC 3.87 L (3.98-5.22) M/mm3 Hgb 10.5 L (11.2-15.7) gm/L Hct 36.8 (34.1-44.9) % MCV 95.1 H (79.4-94.8) fl MCH 27.1 (25.6-32.2) pg MCHC 28.5 L (32.2-35.5) g/dl RDW Std Deviation 52.7 H (36.4-46.3) fL Plt Count 156 L (182-369) K/mm3 MPV 10.2 (9.4-12.3) fl Neut % (Auto) (34.0-71.1) % Lymph % (Auto) (19.3-51.7) % [place] % (Auto) (4.7-12.5) % Eos % (Auto) (0.7-5.8) Baso % (Auto) (0.1-1.2) % Neut # (Auto) (1.56-6.13) K/mm3 Lymph # (Auto) (1.18-3.74) K/mm3 [place] # (Auto) (0.24-0.36) K/mm3 Eos # (Auto) (0.04-0.36) K/mm3 Baso # (Auto) (0.01-0.08) K/mm3 Neutrophils % (Manual) 89 H (40-60) % Band Neutrophils % 0 (0-10) % Lymphocytes % (Manual) 7 L (20-40) % Atypical Lymphs % 0 % Monocytes % (Manual) 4 (2-10) % Eosinophils % (Manual) 0 L (0.7-5.8) % Basophils % (Manual) 0 L (0.1-1.2) Manual Slide Review Platelet Estimate Adequate Polychromasia Few Hypochromasia 1+ slight Anisocytosis 1+ slight Ovalocytes 1+ slight RBC Morph Comment Not Reportable PT 12.9 H (9.5-12.1) SECONDS INR 1.19 APTT 34 H (24-31) SECONDS D-Dimer, Quantitative 3.64 H (0.19-0.50) mg/L Puncture Site ABG pH (7.35-7.45) ABG pCO2 (35.0-45.0) mmHg ABG pO2 (80.0-100.0) mmHg ABG HCO3 (22.0-26.0) meq/L ABG O2 Saturation (96.0-97.0) % ABG Base Excess (-2-2.0) [place] Test A-a Gradient mmHg O2 Delivery Device Oxygen Flow Rate FiO2 (21.00-100.00) % Pressure Support cmH2O Sodium 140 (136-145) mEq/L Potassium 4.7 (3.5-5.1) mEq/L Chloride 109 H (98-107) mEq/L Carbon Dioxide 18 L (21-32) mEq/L Anion Gap 17.7 H (5-15) BUN 26 H (7-18) mg/dL Creatinine 1.9 H (0.55-1.02) mg/dL Est Cr Clr Drug Dosing 26.16 mL/min Estimated GFR (MDRD) 26 (>60) mL/min BUN/Creatinine Ratio 13.7 L (14-18) Glucose 358 H (80-115) mg/dL POC Glucose (80-115) mg/dL Lactic Acid (0.4-2.0) mmol/L Calcium 7.6 L (8.5-10.1) mg/dL Magnesium (1.8-2.4) mg/dl Total Bilirubin 0.8 (0.2-1.0) mg/dL AST 47 H (15-37) U/L ALT 30 (14-59) U/L Alkaline Phosphatase 134 H (46-116) U/L Troponin I < 0.017 (0.00-0.056) ng/mL NT-Pro-B Natriuret Pep (0-125) pg/mL Total Protein 6.7 (6.4-8.2) g/dl Albumin 3.4 (3.4-5.0) g/dl Globulin 3.3 gm/dL Albumin/Globulin Ratio 1.0 (1-2) Urine Color (Yellow) Urine Appearance (Clear) Urine pH (5.0-8.0) Ur Specific [place] (1.005-1.030) Urine Protein (Negative) Urine Glucose (UA) (Negative) Urine Ketones (Negative) Urine Occult Blood (Negative) Urine Nitrite (Negative) Urine Bilirubin (Negative) Urine Urobilinogen (0.2-1.0) Ur Leukocyte Esterase (Negative) Urine RBC (0-5) /hpf Urine WBC (0-5) /hpf Urine WBC Clumps (NOT SEEN) /hpf Ur Epithelial Cells (0-5) /hpf Urine Bacteria (FEW) /hpf Hyaline Casts (0-5) /lpf Urine Mucus (FEW) /hpf Ketones (0.0-0.3) mM Mycoplasma pneumon IgM (NEGATIVE) 07/01/18 07/01/18 07/01/18 Range/Units 21:10 21:10 21:10 WBC (3.98-10.04) K/mm3 RBC (3.98-5.22) M/mm3 Hgb (11.2-15.7) gm/L Hct (34.1-44.9) % MCV (79.4-94.8) fl MCH (25.6-32.2) pg MCHC (32.2-35.5) g/dl RDW Std Deviation (36.4-46.3) fL Plt Count (182-369) K/mm3 MPV (9.4-12.3) fl Neut % (Auto) (34.0-71.1) % Lymph % (Auto) (19.3-51.7) % [place] % (Auto) (4.7-12.5) % Eos % (Auto) (0.7-5.8) Baso % (Auto) (0.1-1.2) % Neut # (Auto) (1.56-6.13) K/mm3 Lymph # (Auto) (1.18-3.74) K/mm3 [place] # (Auto) (0.24-0.36) K/mm3 Eos # (Auto) (0.04-0.36) K/mm3 Baso # (Auto) (0.01-0.08) K/mm3 Neutrophils % (Manual) (40-60) % Band Neutrophils % (0-10) % Lymphocytes % (Manual) (20-40) % Atypical Lymphs % % Monocytes % (Manual) (2-10) % Eosinophils % (Manual) (0.7-5.8) % Basophils % (Manual) (0.1-1.2) Manual Slide Review Platelet Estimate Polychromasia Hypochromasia Anisocytosis Ovalocytes RBC Morph Comment PT (9.5-12.1) SECONDS INR APTT (24-31) SECONDS D-Dimer, Quantitative (0.19-0.50) mg/L Puncture Site ABG pH (7.35-7.45) ABG pCO2 (35.0-45.0) mmHg ABG pO2 (80.0-100.0) mmHg ABG HCO3 (22.0-26.0) meq/L ABG O2 Saturation (96.0-97.0) % ABG Base Excess (-2-2.0) [place] Test A-a Gradient mmHg O2 Delivery Device Oxygen Flow Rate FiO2 (21.00-100.00) % Pressure Support cmH2O Sodium (136-145) mEq/L Potassium (3.5-5.1) mEq/L Chloride (98-107) mEq/L Carbon Dioxide (21-32) mEq/L Anion Gap (5-15) BUN (7-18) mg/dL Creatinine (0.55-1.02) mg/dL Est Cr Clr Drug Dosing mL/min Estimated GFR (MDRD) (>60) mL/min BUN/Creatinine Ratio (14-18) Glucose (80-115) mg/dL POC Glucose (80-115) mg/dL Lactic Acid 2.1 H (0.4-2.0) mmol/L Calcium (8.5-10.1) mg/dL Magnesium (1.8-2.4) mg/dl Total Bilirubin (0.2-1.0) mg/dL AST (15-37) U/L ALT (14-59) U/L Alkaline Phosphatase (46-116) U/L Troponin I (0.00-0.056) ng/mL NT-Pro-B Natriuret Pep 4586 H (0-125) pg/mL Total Protein (6.4-8.2) g/dl Albumin (3.4-5.0) g/dl Globulin gm/dL Albumin/Globulin Ratio (1-2) Urine Color (Yellow) Urine Appearance (Clear) Urine pH (5.0-8.0) Ur Specific [place] (1.005-1.030) Urine Protein (Negative) Urine Glucose (UA) (Negative) Urine Ketones (Negative) Urine Occult Blood (Negative) Urine Nitrite (Negative) Urine Bilirubin (Negative) Urine Urobilinogen (0.2-1.0) Ur Leukocyte Esterase (Negative) Urine RBC (0-5) /hpf Urine WBC (0-5) /hpf Urine WBC Clumps (NOT SEEN) /hpf Ur Epithelial Cells (0-5) /hpf Urine Bacteria (FEW) /hpf Hyaline Casts (0-5) /lpf Urine Mucus (FEW) /hpf Ketones 0.23 (0.0-0.3) mM Mycoplasma pneumon IgM (NEGATIVE) 07/01/18 07/01/18 07/01/18 Range/Units 21:10 21:25 21:37 WBC (3.98-10.04) K/mm3 RBC (3.98-5.22) M/mm3 Hgb (11.2-15.7) gm/L Hct (34.1-44.9) % MCV (79.4-94.8) fl MCH (25.6-32.2) pg MCHC (32.2-35.5) g/dl RDW Std Deviation (36.4-46.3) fL Plt Count (182-369) K/mm3 MPV (9.4-12.3) fl Neut % (Auto) (34.0-71.1) % Lymph % (Auto) (19.3-51.7) % [place] % (Auto) (4.7-12.5) % Eos % (Auto) (0.7-5.8) Baso % (Auto) (0.1-1.2) % Neut # (Auto) (1.56-6.13) K/mm3 Lymph # (Auto) (1.18-3.74) K/mm3 [place] # (Auto) (0.24-0.36) K/mm3 Eos # (Auto) (0.04-0.36) K/mm3 Baso # (Auto) (0.01-0.08) K/mm3 Neutrophils % (Manual) (40-60) % Band Neutrophils % (0-10) % Lymphocytes % (Manual) (20-40) % Atypical Lymphs % % Monocytes % (Manual) (2-10) % Eosinophils % (Manual) (0.7-5.8) % Basophils % (Manual) (0.1-1.2) Manual Slide Review Platelet Estimate Polychromasia Hypochromasia Anisocytosis Ovalocytes RBC Morph Comment PT (9.5-12.1) SECONDS INR APTT (24-31) SECONDS D-Dimer, Quantitative (0.19-0.50) mg/L Puncture Site Rt radial ABG pH 7.34 L (7.35-7.45) ABG pCO2 29.5 L (35.0-45.0) mmHg ABG pO2 83.0 (80.0-100.0) mmHg ABG HCO3 15.5 L (22.0-26.0) meq/L ABG O2 Saturation 95.7 L (96.0-97.0) % ABG Base Excess -8.8 L (-2-2.0) [place] Test Positive A-a Gradient 85 mmHg O2 Delivery Device Bipap Oxygen Flow Rate 3.0 FiO2 32.00 (21.00-100.00) % Pressure Support 8.0 cmH2O Sodium (136-145) mEq/L Potassium (3.5-5.1) mEq/L Chloride (98-107) mEq/L Carbon Dioxide (21-32) mEq/L Anion Gap (5-15) BUN (7-18) mg/dL Creatinine (0.55-1.02) mg/dL Est Cr Clr Drug Dosing mL/min Estimated GFR (MDRD) (>60) mL/min BUN/Creatinine Ratio (14-18) Glucose (80-115) mg/dL POC Glucose (80-115) mg/dL Lactic Acid (0.4-2.0) mmol/L Calcium (8.5-10.1) mg/dL Magnesium (1.8-2.4) mg/dl Total Bilirubin (0.2-1.0) mg/dL AST (15-37) U/L ALT (14-59) U/L Alkaline Phosphatase (46-116) U/L Troponin I (0.00-0.056) ng/mL NT-Pro-B Natriuret Pep (0-125) pg/mL Total Protein (6.4-8.2) g/dl Albumin (3.4-5.0) g/dl Globulin gm/dL Albumin/Globulin Ratio (1-2) Urine Color Yellow (Yellow) Urine Appearance Clear (Clear) Urine pH 6.5 (5.0-8.0) Ur Specific [place] 1.025 (1.005-1.030) Urine Protein 3+ H (Negative) Urine Glucose (UA) 2+ H (Negative) Urine Ketones Negative (Negative) Urine Occult Blood 2+ H (Negative) Urine Nitrite Positive H (Negative) Urine Bilirubin Negative (Negative) Urine Urobilinogen 0.2 (0.2-1.0) Ur Leukocyte Esterase Negative (Negative) Urine RBC 10-20 H (0-5) /hpf Urine WBC 40-50 H (0-5) /hpf Urine WBC Clumps Few (NOT SEEN) /hpf Ur Epithelial Cells 0-5 (0-5) /hpf Urine Bacteria Many H (FEW) /hpf Hyaline Casts 0-5 (0-5) /lpf Urine Mucus Not seen (FEW) /hpf Ketones (0.0-0.3) mM Mycoplasma pneumon IgM Negative (NEGATIVE) 07/01/18 07/02/18 07/02/18 Range/Units 23:35 06:25 06:25 WBC 4.47 (3.98-10.04) K/mm3 RBC 3.81 L (3.98-5.22) M/mm3 Hgb 10.6 L (11.2-15.7) gm/L Hct 36.0 (34.1-44.9) % MCV 94.5 (79.4-94.8) fl MCH 27.8 (25.6-32.2) pg MCHC 29.4 L (32.2-35.5) g/dl RDW Std Deviation 51.6 H (36.4-46.3) fL Plt Count 134 L (182-369) K/mm3 MPV 10.4 (9.4-12.3) fl Neut % (Auto) 83.7 H (34.0-71.1) % Lymph % (Auto) 5.6 L (19.3-51.7) % [place] % (Auto) 9.2 (4.7-12.5) % Eos % (Auto) 0 L (0.7-5.8) Baso % (Auto) 0.2 (0.1-1.2) % Neut # (Auto) 3.74 (1.56-6.13) K/mm3 Lymph # (Auto) 0.25 L (1.18-3.74) K/mm3 [place] # (Auto) 0.41 H (0.24-0.36) K/mm3 Eos # (Auto) 0.00 L (0.04-0.36) K/mm3 Baso # (Auto) 0.01 (0.01-0.08) K/mm3 Neutrophils % (Manual) (40-60) % Band Neutrophils % (0-10) % Lymphocytes % (Manual) (20-40) % Atypical Lymphs % % Monocytes % (Manual) (2-10) % Eosinophils % (Manual) (0.7-5.8) % Basophils % (Manual) (0.1-1.2) Manual Slide Review Abnormal smear Platelet Estimate Polychromasia Hypochromasia Anisocytosis Ovalocytes RBC Morph Comment PT (9.5-12.1) SECONDS INR APTT (24-31) SECONDS D-Dimer, Quantitative (0.19-0.50) mg/L Puncture Site Rt radial ABG pH 7.35 (7.35-7.45) ABG pCO2 32.8 L (35.0-45.0) mmHg ABG pO2 70.0 L (80.0-100.0) mmHg ABG HCO3 17.6 L (22.0-26.0) meq/L ABG O2 Saturation 91.4 L (96.0-97.0) % ABG Base Excess -6.7 L (-2-2.0) [place] Test Positive A-a Gradient 68 mmHg O2 Delivery Device Bipap Oxygen Flow Rate 2.0 FiO2 28.00 (21.00-100.00) % Pressure Support cmH2O Sodium 143 (136-145) mEq/L Potassium 4.9 (3.5-5.1) mEq/L Chloride 109 H (98-107) mEq/L Carbon Dioxide 20 L (21-32) mEq/L Anion Gap 18.9 H (5-15) BUN 29 H (7-18) mg/dL Creatinine 1.9 H (0.55-1.02) mg/dL Est Cr Clr Drug Dosing 23.12 mL/min Estimated GFR (MDRD) 26 (>60) mL/min BUN/Creatinine Ratio 15.3 (14-18) Glucose 159 H (80-115) mg/dL POC Glucose (80-115) mg/dL Lactic Acid (0.4-2.0) mmol/L Calcium 7.4 L (8.5-10.1) mg/dL Magnesium 1.9 (1.8-2.4) mg/dl Total Bilirubin (0.2-1.0) mg/dL AST (15-37) U/L ALT (14-59) U/L Alkaline Phosphatase (46-116) U/L Troponin I (0.00-0.056) ng/mL NT-Pro-B Natriuret Pep (0-125) pg/mL Total Protein (6.4-8.2) g/dl Albumin (3.4-5.0) g/dl Globulin gm/dL Albumin/Globulin Ratio (1-2) Urine Color (Yellow) Urine Appearance (Clear) Urine pH (5.0-8.0) Ur Specific [place] (1.005-1.030) Urine Protein (Negative) Urine Glucose (UA) (Negative) Urine Ketones (Negative) Urine Occult Blood (Negative) Urine Nitrite (Negative) Urine Bilirubin (Negative) Urine Urobilinogen (0.2-1.0) Ur Leukocyte Esterase (Negative) Urine RBC (0-5) /hpf Urine WBC (0-5) /hpf Urine WBC Clumps (NOT SEEN) /hpf Ur Epithelial Cells (0-5) /hpf Urine Bacteria (FEW) /hpf Hyaline Casts (0-5) /lpf Urine Mucus (FEW) /hpf Ketones (0.0-0.3) mM Mycoplasma pneumon IgM (NEGATIVE) 07/02/18 07/02/18 07/02/18 Range/Units 06:25 06:26 08:00 WBC (3.98-10.04) K/mm3 RBC (3.98-5.22) M/mm3 Hgb (11.2-15.7) gm/L Hct (34.1-44.9) % MCV (79.4-94.8) fl MCH (25.6-32.2) pg MCHC (32.2-35.5) g/dl RDW Std Deviation (36.4-46.3) fL Plt Count (182-369) K/mm3 MPV (9.4-12.3) fl Neut % (Auto) (34.0-71.1) % Lymph % (Auto) (19.3-51.7) % [place] % (Auto) (4.7-12.5) % Eos % (Auto) (0.7-5.8) Baso % (Auto) (0.1-1.2) % Neut # (Auto) (1.56-6.13) K/mm3 Lymph # (Auto) (1.18-3.74) K/mm3 [place] # (Auto) (0.24-0.36) K/mm3 Eos # (Auto) (0.04-0.36) K/mm3 Baso # (Auto) (0.01-0.08) K/mm3 Neutrophils % (Manual) (40-60) % Band Neutrophils % (0-10) % Lymphocytes % (Manual) (20-40) % Atypical Lymphs % % Monocytes % (Manual) (2-10) % Eosinophils % (Manual) (0.7-5.8) % Basophils % (Manual) (0.1-1.2) Manual Slide Review Platelet Estimate Polychromasia Hypochromasia Anisocytosis Ovalocytes RBC Morph Comment PT (9.5-12.1) SECONDS INR APTT (24-31) SECONDS D-Dimer, Quantitative (0.19-0.50) mg/L Puncture Site ABG pH (7.35-7.45) ABG pCO2 (35.0-45.0) mmHg ABG pO2 (80.0-100.0) mmHg ABG HCO3 (22.0-26.0) meq/L ABG O2 Saturation (96.0-97.0) % ABG Base Excess (-2-2.0) [place] Test A-a Gradient mmHg O2 Delivery Device Oxygen Flow Rate FiO2 (21.00-100.00) % Pressure Support cmH2O Sodium (136-145) mEq/L Potassium (3.5-5.1) mEq/L Chloride (98-107) mEq/L Carbon Dioxide (21-32) mEq/L Anion Gap (5-15) BUN (7-18) mg/dL Creatinine (0.55-1.02) mg/dL Est Cr Clr Drug Dosing mL/min Estimated GFR (MDRD) (>60) mL/min BUN/Creatinine Ratio (14-18) Glucose (80-115) mg/dL POC Glucose 143 H (80-115) mg/dL Lactic Acid 1.3 (0.4-2.0) mmol/L Calcium (8.5-10.1) mg/dL Magnesium (1.8-2.4) mg/dl Total Bilirubin (0.2-1.0) mg/dL AST (15-37) U/L ALT (14-59) U/L Alkaline Phosphatase (46-116) U/L Troponin I (0.00-0.056) ng/mL NT-Pro-B Natriuret Pep 05934 H (0-125) pg/mL Total Protein (6.4-8.2) g/dl Albumin (3.4-5.0) g/dl Globulin gm/dL Albumin/Globulin Ratio (1-2) Urine Color (Yellow) Urine Appearance (Clear) Urine pH (5.0-8.0) Ur Specific [place] (1.005-1.030) Urine Protein (Negative) Urine Glucose (UA) (Negative) Urine Ketones (Negative) Urine Occult Blood (Negative) Urine Nitrite (Negative) Urine Bilirubin (Negative) Urine Urobilinogen (0.2-1.0) Ur Leukocyte Esterase (Negative) Urine RBC (0-5) /hpf Urine WBC (0-5) /hpf Urine WBC Clumps (NOT SEEN) /hpf Ur Epithelial Cells (0-5) /hpf Urine Bacteria (FEW) /hpf Hyaline Casts (0-5) /lpf Urine Mucus (FEW) /hpf Ketones (0.0-0.3) mM Mycoplasma pneumon IgM (NEGATIVE) 07/02/18 07/02/18 Range/Units 10:55 12:02 WBC (3.98-10.04) K/mm3 RBC (3.98-5.22) M/mm3 Hgb (11.2-15.7) gm/L Hct (34.1-44.9) % MCV (79.4-94.8) fl MCH (25.6-32.2) pg MCHC (32.2-35.5) g/dl RDW Std Deviation (36.4-46.3) fL Plt Count (182-369) K/mm3 MPV (9.4-12.3) fl Neut % (Auto) (34.0-71.1) % Lymph % (Auto) (19.3-51.7) % [place] % (Auto) (4.7-12.5) % Eos % (Auto) (0.7-5.8) Baso % (Auto) (0.1-1.2) % Neut # (Auto) (1.56-6.13) K/mm3 Lymph # (Auto) (1.18-3.74) K/mm3 [place] # (Auto) (0.24-0.36) K/mm3 Eos # (Auto) (0.04-0.36) K/mm3 Baso # (Auto) (0.01-0.08) K/mm3 Neutrophils % (Manual) (40-60) % Band Neutrophils % (0-10) % Lymphocytes % (Manual) (20-40) % Atypical Lymphs % % Monocytes % (Manual) (2-10) % Eosinophils % (Manual) (0.7-5.8) % Basophils % (Manual) (0.1-1.2) Manual Slide Review Platelet Estimate Polychromasia Hypochromasia Anisocytosis Ovalocytes RBC Morph Comment PT (9.5-12.1) SECONDS INR APTT (24-31) SECONDS D-Dimer, Quantitative (0.19-0.50) mg/L Puncture Site Rt radial ABG pH 7.40 (7.35-7.45) ABG pCO2 28.6 L (35.0-45.0) mmHg ABG pO2 89.0 (80.0-100.0) mmHg ABG HCO3 17.2 L (22.0-26.0) meq/L ABG O2 Saturation 95.6 L (96.0-97.0) % ABG Base Excess -6.3 L (-2-2.0) [place] Test Positive A-a Gradient 29 mmHg O2 Delivery Device Nasal cannula Oxygen Flow Rate 1.0 FiO2 24.00 (21.00-100.00) % Pressure Support cmH2O Sodium (136-145) mEq/L Potassium (3.5-5.1) mEq/L Chloride (98-107) mEq/L Carbon Dioxide (21-32) mEq/L Anion Gap (5-15) BUN (7-18) mg/dL Creatinine (0.55-1.02) mg/dL Est Cr Clr Drug Dosing mL/min Estimated GFR (MDRD) (>60) mL/min BUN/Creatinine Ratio (14-18) Glucose (80-115) mg/dL POC Glucose 130 H (80-115) mg/dL Lactic Acid (0.4-2.0) mmol/L Calcium (8.5-10.1) mg/dL Magnesium (1.8-2.4) mg/dl Total Bilirubin (0.2-1.0) mg/dL AST (15-37) U/L ALT (14-59) U/L Alkaline Phosphatase (46-116) U/L Troponin I (0.00-0.056) ng/mL NT-Pro-B Natriuret Pep (0-125) pg/mL Total Protein (6.4-8.2) g/dl Albumin (3.4-5.0) g/dl Globulin gm/dL Albumin/Globulin Ratio (1-2) Urine Color (Yellow) Urine Appearance (Clear) Urine pH (5.0-8.0) Ur Specific [place] (1.005-1.030) Urine Protein (Negative) Urine Glucose (UA) (Negative) Urine Ketones (Negative) Urine Occult Blood (Negative) Urine Nitrite (Negative) Urine Bilirubin (Negative) Urine Urobilinogen (0.2-1.0) Ur Leukocyte Esterase (Negative) Urine RBC (0-5) /hpf Urine WBC (0-5) /hpf Urine WBC Clumps (NOT SEEN) /hpf Ur Epithelial Cells (0-5) /hpf Urine Bacteria (FEW) /hpf Hyaline Casts (0-5) /lpf Urine Mucus (FEW) /hpf Ketones (0.0-0.3) mM Mycoplasma pneumon IgM (NEGATIVE) Result Diagrams: 07/02/18 06:25 07/02/18 06:25 Pk Results Last 24 hrs: Microbiology 07/01/18 21:20 Aerobic Blood Culture - Preliminary Blood - Venous - Lab Draw Gram Negative Rods Anaerobic Blood Culture - Final 07/01/18 21:10 Aerobic Blood Culture - Preliminary Blood - Venous Gram Negative Rods Anaerobic Blood Culture - Preliminary Gram Negative Rods 07/01/18 21:37 Urine Culture - Preliminary Urine, Catheterized Gram Negative Rods - Problem List (1) Renal transplant, status post SNOMED Code(s): 051283770, 82302542, [id number] ICD Code: Z94.0 - KIDNEY TRANSPLANT STATUS Status: Acute Current Visit: Yes (2) Immunosuppressed status SNOMED Code(s): 55399126 ICD Code: D89.9 - DISORDER INVOLVING THE IMMUNE MECHANISM, UNSPECIFIED Status: Acute Current Visit: Yes (3) Chronic kidney disease SNOMED Code(s): 730166598 ICD Code: N18.9 - CHRONIC KIDNEY DISEASE, UNSPECIFIED Status: Acute Current Visit: Yes (4) Elevated d-dimer SNOMED Code(s): 889675951 ICD Code: R79.89 - OTHER SPECIFIED ABNORMAL FINDINGS OF BLOOD CHEMISTRY Status: Acute Current Visit: Yes (5) Hyperglycemia due to type 2 diabetes mellitus SNOMED Code(s): 634323107824751, 553727073478998 ICD Code: E11.65 - TYPE 2 DIABETES MELLITUS WITH HYPERGLYCEMIA Status: Acute Current Visit: Yes (6) UTI (urinary tract infection) SNOMED Code(s): 71920283 ICD Code: N39.0 - URINARY TRACT INFECTION, SITE NOT SPECIFIED Status: Acute Current Visit: Yes Problem List Initiated/Reviewed/Updated: Yes Orders Last 24hrs: Active Orders 24 hr Category Date Time Status Admission Status [Patient Status] [ADT] Routine ADT 07/02/18 00:26 Active Activity as Tolerated [RC] .Routine Care 07/02/18 09:46 Active BIPAP Adult [RT BiPAP/CPAP] [RC] ASDIRECTED Care 07/01/18 20:59 Active Blood Glucose Check, Bedside [RC] QIDACANDBED Care 07/02/18 03:43 Active [place]to Catheter Insertion [Insert Urinary Catheter] [OM. Care 07/01/18 21:15 Ordered PC] Q24H RT Aerosol Therapy [RC] ASDIRECTED Care 07/02/18 01:16 Active RT Arterial Blood Gases, ABG [RC] Click to Edit Care 07/02/18 09:48 Inactive Urinary Catheter Assessment [RC] Q4HR Care 07/01/18 21:02 Active OT Evaluation and Treatment [CONS] Routine Cons 07/02/18 09:46 Active PT Evaluation and Treatment [CONS] Routine Cons 07/02/18 09:45 Active Renal Non-Dialysis Diet [DIET] Diet 07/02/18 Breakfast Active CULTURE BLOOD [BC] Stat Lab 07/01/18 21:10 Results CULTURE BLOOD [BC] Stat Lab 07/01/18 21:20 Results CULTURE URINE [RM] Stat Lab 07/01/18 21:37 Results METH-RESIST S.AUR,MRSA BY PCR [MOLEC] Routine Lab 07/02/18 12:00 Received RESPIRATORY PANEL Stat Lab 07/02/18 12:00 Received STREP PNEUMONIAE ANTIGEN [MREF] Stat Lab 07/02/18 11:50 Received Albuterol/Ipratropium [DuoNeb 3.0-0.5 MG/3 ML] Med 07/02/18 01:16 Active 3 ml NEB Q6HRRT PRN Insulin Lispro [HumaLOG] Med 07/02/18 07:00 Active See Protocol SUBCUT QIDACANDBED Blood Culture x2 Reflex Set [OM.PC] Stat Oth 07/01/18 21:00 Ordered Code Status [Resuscitation Status] Routine Resus Stat 07/02/18 04:30 Ordered Medication Orders Albuterol/Ipratropium (Duoneb 3.0-0.5 Mg/3 Ml) 3 ml NEB Q6HRRT PRN PRN Reason: Shortness of Breath Insulin Human Lispro (Humalog) 0 unit SUBCUT QIDACANDBED [facility]; Protocol Last Admin: 07/02/18 12:02 Dose: Admin: 07/02/18 06:31 Dose: Not Given Assessment/Plan Comment:: Impression: Pulmonary congestion Acute respiratory distress on BiPAP Hypoxia AUTI with history of recurrence, UC/BC are pending S/P renal transplant on anti rejection agents Chronic HLD CRI Anxiety Depression Diabetes Mellitus type 2 Obesity, BMI 36.6 Plan: IVF Sepsis protcol Titrate off BiPAP Diurese as needed Accurate I/Os Levoquin IV Resp isolation Respiratory work up DVT/GI prophylaxis Consult PT/OT
[2018-07-02] MEDS ORDERED: Docusate Sodium 100 MG Cap PO PRN (12:54)
[2018-07-02] MEDS ORDERED: Sulfamethoxazole/Trimethoprim 800-160 MG Tab PO SCH (13:00)
[2018-07-02] MEDS ORDERED: cefTRIAXone 2 GM in Sodium Chloride 0.9% 100 ML IV SCH (13:15)
[2018-07-02] MEDS ORDERED: Levofloxacin/Dextrose 5%-Water 750 MG in Premix Bag 1 BAG IV SCH (13:30)
[2018-07-02] MEDS: methylPREDNISolone Sodium Succinate 40 MG/1 ML SDV IVPUSH SCH (14:05)
--- NOTE | 2018-07-02 18:42 | PCM.PN ---
- General Info Date of Service: 07/02/18 Functional Status: Reports: Pain Controlled, Tolerating Diet, Ambulating, Urinating - Review of Systems General: Reports: Weakness HEENT: Reports: No Symptoms Pulmonary: Reports: No Symptoms Cardiovascular: Reports: No Symptoms Gastrointestinal: Reports: No Symptoms Genitourinary: Reports: No Symptoms Musculoskeletal: Reports: No Symptoms Skin: Reports: No Symptoms Neurological: Reports: No Symptoms Psychiatric: Reports: No Symptoms - Patient Data Vitals - Most Recent: Last Vital Signs Temp 36.1 C 07/02/18 16:00 Pulse 72 07/02/18 17:00 Resp 21 H 07/02/18 17:00 BP 136/50 L 07/02/18 16:00 Pulse Ox 97 07/02/18 17:00 Weight - Most Recent: 93.712 kg I&O - Last 24 Hours: Intake & Output 07/02/18 07/02/18 07/02/18 06:59 14:59 22:59 Intake Total 350 139 Output Total 4053 118 160 Balance -1775 -570 -21 Lab Results Last 24 Hours: Laboratory Results - last 24 hr 07/01/18 07/01/18 07/01/18 Range/Units 21:10 21:10 21:10 WBC 3.17 L (3.98-10.04) K/mm3 RBC 3.87 L (3.98-5.22) M/mm3 Hgb 10.5 L (11.2-15.7) gm/L Hct 36.8 (34.1-44.9) % MCV 95.1 H (79.4-94.8) fl MCH 27.1 (25.6-32.2) pg MCHC 28.5 L (32.2-35.5) g/dl RDW Std Deviation 52.7 H (36.4-46.3) fL Plt Count 156 L (182-369) K/mm3 MPV 10.2 (9.4-12.3) fl Neut % (Auto) (34.0-71.1) % Lymph % (Auto) (19.3-51.7) % [place] % (Auto) (4.7-12.5) % Eos % (Auto) (0.7-5.8) Baso % (Auto) (0.1-1.2) % Neut # (Auto) (1.56-6.13) K/mm3 Lymph # (Auto) (1.18-3.74) K/mm3 [place] # (Auto) (0.24-0.36) K/mm3 Eos # (Auto) (0.04-0.36) K/mm3 Baso # (Auto) (0.01-0.08) K/mm3 Neutrophils % (Manual) 89 H (40-60) % Band Neutrophils % 0 (0-10) % Lymphocytes % (Manual) 7 L (20-40) % Atypical Lymphs % 0 % Monocytes % (Manual) 4 (2-10) % Eosinophils % (Manual) 0 L (0.7-5.8) % Basophils % (Manual) 0 L (0.1-1.2) Manual Slide Review Platelet Estimate Adequate Polychromasia Few Hypochromasia 1+ slight Anisocytosis 1+ slight Ovalocytes 1+ slight RBC Morph Comment Not Reportable PT 12.9 H (9.5-12.1) SECONDS INR 1.19 APTT 34 H (24-31) SECONDS D-Dimer, Quantitative 3.64 H (0.19-0.50) mg/L Puncture Site ABG pH (7.35-7.45) ABG pCO2 (35.0-45.0) mmHg ABG pO2 (80.0-100.0) mmHg ABG HCO3 (22.0-26.0) meq/L ABG O2 Saturation (96.0-97.0) % ABG Base Excess (-2-2.0) [place] Test A-a Gradient mmHg O2 Delivery Device Oxygen Flow Rate FiO2 (21.00-100.00) % Pressure Support cmH2O Sodium 140 (136-145) mEq/L Potassium 4.7 (3.5-5.1) mEq/L Chloride 109 H (98-107) mEq/L Carbon Dioxide 18 L (21-32) mEq/L Anion Gap 17.7 H (5-15) BUN 26 H (7-18) mg/dL Creatinine 1.9 H (0.55-1.02) mg/dL Est Cr Clr Drug Dosing 26.16 mL/min Estimated GFR (MDRD) 26 (>60) mL/min BUN/Creatinine Ratio 13.7 L (14-18) Glucose 358 H (80-115) mg/dL POC Glucose (80-115) mg/dL Lactic Acid (0.4-2.0) mmol/L Calcium 7.6 L (8.5-10.1) mg/dL Magnesium (1.8-2.4) mg/dl Total Bilirubin 0.8 (0.2-1.0) mg/dL AST 47 H (15-37) U/L ALT 30 (14-59) U/L Alkaline Phosphatase 134 H (46-116) U/L Troponin I < 0.017 (0.00-0.056) ng/mL NT-Pro-B Natriuret Pep (0-125) pg/mL Total Protein 6.7 (6.4-8.2) g/dl Albumin 3.4 (3.4-5.0) g/dl Globulin 3.3 gm/dL Albumin/Globulin Ratio 1.0 (1-2) Urine Color (Yellow) Urine Appearance (Clear) Urine pH (5.0-8.0) Ur Specific [place] (1.005-1.030) Urine Protein (Negative) Urine Glucose (UA) (Negative) Urine Ketones (Negative) Urine Occult Blood (Negative) Urine Nitrite (Negative) Urine Bilirubin (Negative) Urine Urobilinogen (0.2-1.0) Ur Leukocyte Esterase (Negative) Urine RBC (0-5) /hpf Urine WBC (0-5) /hpf Urine WBC Clumps (NOT SEEN) /hpf Ur Epithelial Cells (0-5) /hpf Urine Bacteria (FEW) /hpf Hyaline Casts (0-5) /lpf Urine Mucus (FEW) /hpf Ketones (0.0-0.3) mM Mycoplasma pneumon IgM (NEGATIVE) MRSA (PCR) 07/01/18 07/01/18 07/01/18 Range/Units 21:10 21:10 21:10 WBC (3.98-10.04) K/mm3 RBC (3.98-5.22) M/mm3 Hgb (11.2-15.7) gm/L Hct (34.1-44.9) % MCV (79.4-94.8) fl MCH (25.6-32.2) pg MCHC (32.2-35.5) g/dl RDW Std Deviation (36.4-46.3) fL Plt Count (182-369) K/mm3 MPV (9.4-12.3) fl Neut % (Auto) (34.0-71.1) % Lymph % (Auto) (19.3-51.7) % [place] % (Auto) (4.7-12.5) % Eos % (Auto) (0.7-5.8) Baso % (Auto) (0.1-1.2) % Neut # (Auto) (1.56-6.13) K/mm3 Lymph # (Auto) (1.18-3.74) K/mm3 [place] # (Auto) (0.24-0.36) K/mm3 Eos # (Auto) (0.04-0.36) K/mm3 Baso # (Auto) (0.01-0.08) K/mm3 Neutrophils % (Manual) (40-60) % Band Neutrophils % (0-10) % Lymphocytes % (Manual) (20-40) % Atypical Lymphs % % Monocytes % (Manual) (2-10) % Eosinophils % (Manual) (0.7-5.8) % Basophils % (Manual) (0.1-1.2) Manual Slide Review Platelet Estimate Polychromasia Hypochromasia Anisocytosis Ovalocytes RBC Morph Comment PT (9.5-12.1) SECONDS INR APTT (24-31) SECONDS D-Dimer, Quantitative (0.19-0.50) mg/L Puncture Site ABG pH (7.35-7.45) ABG pCO2 (35.0-45.0) mmHg ABG pO2 (80.0-100.0) mmHg ABG HCO3 (22.0-26.0) meq/L ABG O2 Saturation (96.0-97.0) % ABG Base Excess (-2-2.0) [place] Test A-a Gradient mmHg O2 Delivery Device Oxygen Flow Rate FiO2 (21.00-100.00) % Pressure Support cmH2O Sodium (136-145) mEq/L Potassium (3.5-5.1) mEq/L Chloride (98-107) mEq/L Carbon Dioxide (21-32) mEq/L Anion Gap (5-15) BUN (7-18) mg/dL Creatinine (0.55-1.02) mg/dL Est Cr Clr Drug Dosing mL/min Estimated GFR (MDRD) (>60) mL/min BUN/Creatinine Ratio (-18) Glucose (80-115) mg/dL POC Glucose (80-115) mg/dL Lactic Acid 2.1 H (0.4-2.0) mmol/L Calcium (8.5-10.1) mg/dL Magnesium (1.8-2.4) mg/dl Total Bilirubin (0.2-1.0) mg/dL AST (15-37) U/L ALT (14-59) U/L Alkaline Phosphatase (46-116) U/L Troponin I (0.00-0.056) ng/mL NT-Pro-B Natriuret Pep 4586 H (0-125) pg/mL Total Protein (6.4-8.2) g/dl Albumin (3.4-5.0) g/dl Globulin gm/dL Albumin/Globulin Ratio (1-2) Urine Color (Yellow) Urine Appearance (Clear) Urine pH (5.0-8.0) Ur Specific [place] (1.005-1.030) Urine Protein (Negative) Urine Glucose (UA) (Negative) Urine Ketones (Negative) Urine Occult Blood (Negative) Urine Nitrite (Negative) Urine Bilirubin (Negative) Urine Urobilinogen (0.2-1.0) Ur Leukocyte Esterase (Negative) Urine RBC (0-5) /hpf Urine WBC (0-5) /hpf Urine WBC Clumps (NOT SEEN) /hpf Ur Epithelial Cells (0-5) /hpf Urine Bacteria (FEW) /hpf Hyaline Casts (0-5) /lpf Urine Mucus (FEW) /hpf Ketones 0.23 (0.0-0.3) mM Mycoplasma pneumon IgM (NEGATIVE) MRSA (PCR) 07/01/18 07/01/18 07/01/18 Range/Units 21:10 21:25 21:37 WBC (3.98-10.04) K/mm3 RBC (3.98-5.22) M/mm3 Hgb (11.2-15.7) gm/L Hct (34.1-44.9) % MCV (79.4-94.8) fl MCH (25.6-32.2) pg MCHC (32.2-35.5) g/dl RDW Std Deviation (36.4-46.3) fL Plt Count (182-369) K/mm3 MPV (9.4-12.3) fl Neut % (Auto) (34.0-71.1) % Lymph % (Auto) (19.3-51.7) % [place] % (Auto) (4.7-12.5) % Eos % (Auto) (0.7-5.8) Baso % (Auto) (0.1-1.2) % Neut # (Auto) (1.56-6.13) K/mm3 Lymph # (Auto) (1.18-3.74) K/mm3 [place] # (Auto) (0.24-0.36) K/mm3 Eos # (Auto) (0.04-0.36) K/mm3 Baso # (Auto) (0.01-0.08) K/mm3 Neutrophils % (Manual) (40-60) % Band Neutrophils % (0-10) % Lymphocytes % (Manual) (20-40) % Atypical Lymphs % % Monocytes % (Manual) (2-10) % Eosinophils % (Manual) (0.7-5.8) % Basophils % (Manual) (0.1-1.2) Manual Slide Review Platelet Estimate Polychromasia Hypochromasia Anisocytosis Ovalocytes RBC Morph Comment PT (9.5-12.1) SECONDS INR APTT (24-31) SECONDS D-Dimer, Quantitative (0.19-0.50) mg/L Puncture Site Rt radial ABG pH 7.34 L (7.35-7.45) ABG pCO2 29.5 L (35.0-45.0) mmHg ABG pO2 83.0 (80.0-100.0) mmHg ABG HCO3 15.5 L (22.0-26.0) meq/L ABG O2 Saturation 95.7 L (96.0-97.0) % ABG Base Excess -8.8 L (-2-2.0) [place] Test Positive A-a Gradient 85 mmHg O2 Delivery Device Bipap Oxygen Flow Rate 3.0 FiO2 32.00 (21.00-100.00) % Pressure Support 8.0 cmH2O Sodium (136-145) mEq/L Potassium (3.5-5.1) mEq/L Chloride (98-107) mEq/L Carbon Dioxide (21-32) mEq/L Anion Gap (5-15) BUN (7-18) mg/dL Creatinine (0.55-1.02) mg/dL Est Cr Clr Drug Dosing mL/min Estimated GFR (MDRD) (>60) mL/min BUN/Creatinine Ratio (14-18) Glucose (80-115) mg/dL POC Glucose (80-115) mg/dL Lactic Acid (0.4-2.0) mmol/L Calcium (8.5-10.1) mg/dL Magnesium (1.8-2.4) mg/dl Total Bilirubin (0.2-1.0) mg/dL AST (15-37) U/L ALT (14-59) U/L Alkaline Phosphatase (46-116) U/L Troponin I (0.00-0.056) ng/mL NT-Pro-B Natriuret Pep (0-125) pg/mL Total Protein (6.4-8.2) g/dl Albumin (3.4-5.0) g/dl Globulin gm/dL Albumin/Globulin Ratio (1-2) Urine Color Yellow (Yellow) Urine Appearance Clear (Clear) Urine pH 6.5 (5.0-8.0) Ur Specific [place] 1.025 (1.005-1.030) Urine Protein 3+ H (Negative) Urine Glucose (UA) 2+ H (Negative) Urine Ketones Negative (Negative) Urine Occult Blood 2+ H (Negative) Urine Nitrite Positive H (Negative) Urine Bilirubin Negative (Negative) Urine Urobilinogen 0.2 (0.2-1.0) Ur Leukocyte Esterase Negative (Negative) Urine RBC 10-20 H (0-5) /hpf Urine WBC 40-50 H (0-5) /hpf Urine WBC Clumps Few (NOT SEEN) /hpf Ur Epithelial Cells 0-5 (0-5) /hpf Urine Bacteria Many H (FEW) /hpf Hyaline Casts 0-5 (0-5) /lpf Urine Mucus Not seen (FEW) /hpf Ketones (0.0-0.3) mM Mycoplasma pneumon IgM Negative (NEGATIVE) MRSA (PCR) 07/01/18 07/02/18 07/02/18 Range/Units 23:35 06:25 06:25 WBC 4.47 (3.98-10.04) K/mm3 RBC 3.81 L (3.98-5.22) M/mm3 Hgb 10.6 L (11.2-15.7) gm/L Hct 36.0 (34.1-44.9) % MCV 94.5 (79.4-94.8) fl MCH 27.8 (25.6-32.2) pg MCHC 29.4 L (32.2-35.5) g/dl RDW Std Deviation 51.6 H (36.4-46.3) fL Plt Count 134 L (182-369) K/mm3 MPV 10.4 (9.4-12.3) fl Neut % (Auto) 83.7 H (34.0-71.1) % Lymph % (Auto) 5.6 L (19.3-51.7) % [place] % (Auto) 9.2 (4.7-12.5) % Eos % (Auto) 0 L (0.7-5.8) Baso % (Auto) 0.2 (0.1-1.2) % Neut # (Auto) 3.74 (1.56-6.13) K/mm3 Lymph # (Auto) 0.25 L (1.18-3.74) K/mm3 [place] # (Auto) 0.41 H (0.24-0.36) K/mm3 Eos # (Auto) 0.00 L (0.04-0.36) K/mm3 Baso # (Auto) 0.01 (0.01-0.08) K/mm3 Neutrophils % (Manual) (40-60) % Band Neutrophils % (0-10) % Lymphocytes % (Manual) (20-40) % Atypical Lymphs % % Monocytes % (Manual) (2-10) % Eosinophils % (Manual) (0.7-5.8) % Basophils % (Manual) (0.1-1.2) Manual Slide Review Abnormal smear Platelet Estimate Polychromasia Hypochromasia Anisocytosis Ovalocytes RBC Morph Comment PT (9.5-12.1) SECONDS INR APTT (24-31) SECONDS D-Dimer, Quantitative (0.19-0.50) mg/L Puncture Site Rt radial ABG pH 7.35 (7.35-7.45) ABG pCO2 32.8 L (35.0-45.0) mmHg ABG pO2 70.0 L (80.0-100.0) mmHg ABG HCO3 17.6 L (22.0-26.0) meq/L ABG O2 Saturation 91.4 L (96.0-97.0) % ABG Base Excess -6.7 L (-2-2.0) [place] Test Positive A-a Gradient 68 mmHg O2 Delivery Device Bipap Oxygen Flow Rate 2.0 FiO2 28.00 (21.00-100.00) % Pressure Support cmH2O Sodium 143 (136-145) mEq/L Potassium 4.9 (3.5-5.1) mEq/L Chloride 109 H (98-107) mEq/L Carbon Dioxide 20 L (21-32) mEq/L Anion Gap 18.9 H (5-15) BUN 29 H (7-18) mg/dL Creatinine 1.9 H (0.55-1.02) mg/dL Est Cr Clr Drug Dosing 23.12 mL/min Estimated GFR (MDRD) 26 (>60) mL/min BUN/Creatinine Ratio 15.3 (14-18) Glucose 159 H (80-115) mg/dL POC Glucose (80-115) mg/dL Lactic Acid (0.4-2.0) mmol/L Calcium 7.4 L (8.5-10.1) mg/dL Magnesium 1.9 (1.8-2.4) mg/dl Total Bilirubin (0.2-1.0) mg/dL AST (15-37) U/L ALT (14-59) U/L Alkaline Phosphatase (46-116) U/L Troponin I (0.00-0.056) ng/mL NT-Pro-B Natriuret Pep (0-125) pg/mL Total Protein (6.4-8.2) g/dl Albumin (3.4-5.0) g/dl Globulin gm/dL Albumin/Globulin Ratio (1-2) Urine Color (Yellow) Urine Appearance (Clear) Urine pH (5.0-8.0) Ur Specific [place] (1.005-1.030) Urine Protein (Negative) Urine Glucose (UA) (Negative) Urine Ketones (Negative) Urine Occult Blood (Negative) Urine Nitrite (Negative) Urine Bilirubin (Negative) Urine Urobilinogen (0.2-1.0) Ur Leukocyte Esterase (Negative) Urine RBC (0-5) /hpf Urine WBC (0-5) /hpf Urine WBC Clumps (NOT SEEN) /hpf Ur Epithelial Cells (0-5) /hpf Urine Bacteria (FEW) /hpf Hyaline Casts (0-5) /lpf Urine Mucus (FEW) /hpf Ketones (0.0-0.3) mM Mycoplasma pneumon IgM (NEGATIVE) MRSA (PCR) 07/02/18 07/02/18 07/02/18 Range/Units 06:25 06:26 08:00 WBC (3.98-10.04) K/mm3 RBC (3.98-5.22) M/mm3 Hgb (11.2-15.7) gm/L Hct (34.1-44.9) % MCV (79.4-94.8) fl MCH (25.6-32.2) pg MCHC (32.2-35.5) g/dl RDW Std Deviation (36.4-46.3) fL Plt Count (182-369) K/mm3 MPV (9.4-12.3) fl Neut % (Auto) (34.0-71.1) % Lymph % (Auto) (19.3-51.7) % [place] % (Auto) (4.7-12.5) % Eos % (Auto) (0.7-5.8) Baso % (Auto) (0.1-1.2) % Neut # (Auto) (1.56-6.13) K/mm3 Lymph # (Auto) (1.18-3.74) K/mm3 [place] # (Auto) (0.24-0.36) K/mm3 Eos # (Auto) (0.04-0.36) K/mm3 Baso # (Auto) (0.01-0.08) K/mm3 Neutrophils % (Manual) (40-60) % Band Neutrophils % (0-10) % Lymphocytes % (Manual) (20-40) % Atypical Lymphs % % Monocytes % (Manual) (2-10) % Eosinophils % (Manual) (0.7-5.8) % Basophils % (Manual) (0.1-1.2) Manual Slide Review Platelet Estimate Polychromasia Hypochromasia Anisocytosis Ovalocytes RBC Morph Comment PT (9.5-12.1) SECONDS INR APTT (24-31) SECONDS D-Dimer, Quantitative (0.19-0.50) mg/L Puncture Site ABG pH (7.35-7.45) ABG pCO2 (35.0-45.0) mmHg ABG pO2 (80.0-100.0) mmHg ABG HCO3 (22.0-26.0) meq/L ABG O2 Saturation (96.0-97.0) % ABG Base Excess (-2-2.0) [place] Test A-a Gradient mmHg O2 Delivery Device Oxygen Flow Rate FiO2 (21.00-100.00) % Pressure Support cmH2O Sodium (136-145) mEq/L Potassium (3.5-5.1) mEq/L Chloride (98-107) mEq/L Carbon Dioxide (21-32) mEq/L Anion Gap (5-15) BUN (7-18) mg/dL Creatinine (0.55-1.02) mg/dL Est Cr Clr Drug Dosing mL/min Estimated GFR (MDRD) (>60) mL/min BUN/Creatinine Ratio (14-18) Glucose (80-115) mg/dL POC Glucose 143 H (80-115) mg/dL Lactic Acid 1.3 (0.4-2.0) mmol/L Calcium (8.5-10.1) mg/dL Magnesium (1.8-2.4) mg/dl Total Bilirubin (0.2-1.0) mg/dL AST (15-37) U/L ALT (14-59) U/L Alkaline Phosphatase (46-116) U/L Troponin I (0.00-0.056) ng/mL NT-Pro-B Natriuret Pep 67285 H (0-125) pg/mL Total Protein (6.4-8.2) g/dl Albumin (3.4-5.0) g/dl Globulin gm/dL Albumin/Globulin Ratio (1-2) Urine Color (Yellow) Urine Appearance (Clear) Urine pH (5.0-8.0) Ur Specific [place] (1.005-1.030) Urine Protein (Negative) Urine Glucose (UA) (Negative) Urine Ketones (Negative) Urine Occult Blood (Negative) Urine Nitrite (Negative) Urine Bilirubin (Negative) Urine Urobilinogen (0.2-1.0) Ur Leukocyte Esterase (Negative) Urine RBC (0-5) /hpf Urine WBC (0-5) /hpf Urine WBC Clumps (NOT SEEN) /hpf Ur Epithelial Cells (0-5) /hpf Urine Bacteria (FEW) /hpf Hyaline Casts (0-5) /lpf Urine Mucus (FEW) /hpf Ketones (0.0-0.3) mM Mycoplasma pneumon IgM (NEGATIVE) MRSA (PCR) 07/02/18 07/02/18 07/02/18 Range/Units 10:55 12:00 12:02 WBC (3.98-10.04) K/mm3 RBC (3.98-5.22) M/mm3 Hgb (11.2-15.7) gm/L Hct (34.1-44.9) % MCV (79.4-94.8) fl MCH (25.6-32.2) pg MCHC (32.2-35.5) g/dl RDW Std Deviation (36.4-46.3) fL Plt Count (182-369) K/mm3 MPV (9.4-12.3) fl Neut % (Auto) (34.0-71.1) % Lymph % (Auto) (19.3-51.7) % [place] % (Auto) (4.7-12.5) % Eos % (Auto) (0.7-5.8) Baso % (Auto) (0.1-1.2) % Neut # (Auto) (1.56-6.13) K/mm3 Lymph # (Auto) (1.18-3.74) K/mm3 [place] # (Auto) (0.24-0.36) K/mm3 Eos # (Auto) (0.04-0.36) K/mm3 Baso # (Auto) (0.01-0.08) K/mm3 Neutrophils % (Manual) (40-60) % Band Neutrophils % (0-10) % Lymphocytes % (Manual) (20-40) % Atypical Lymphs % % Monocytes % (Manual) (2-10) % Eosinophils % (Manual) (0.7-5.8) % Basophils % (Manual) (0.1-1.2) Manual Slide Review Platelet Estimate Polychromasia Hypochromasia Anisocytosis Ovalocytes RBC Morph Comment PT (9.5-12.1) SECONDS INR APTT (24-31) SECONDS D-Dimer, Quantitative (0.19-0.50) mg/L Puncture Site Rt radial ABG pH 7.40 (7.35-7.45) ABG pCO2 28.6 L (35.0-45.0) mmHg ABG pO2 89.0 (80.0-100.0) mmHg ABG HCO3 17.2 L (22.0-26.0) meq/L ABG O2 Saturation 95.6 L (96.0-97.0) % ABG Base Excess -6.3 L (-2-2.0) [place] Test Positive A-a Gradient 29 mmHg O2 Delivery Device Nasal cannula Oxygen Flow Rate 1.0 FiO2 24.00 (21.00-100.00) % Pressure Support cmH2O Sodium (136-145) mEq/L Potassium (3.5-5.1) mEq/L Chloride (98-107) mEq/L Carbon Dioxide (21-32) mEq/L Anion Gap (5-15) BUN (7-18) mg/dL Creatinine (0.55-1.02) mg/dL Est Cr Clr Drug Dosing mL/min Estimated GFR (MDRD) (>60) mL/min BUN/Creatinine Ratio (14-18) Glucose (80-115) mg/dL POC Glucose 130 H (80-115) mg/dL Lactic Acid (0.4-2.0) mmol/L Calcium (8.5-10.1) mg/dL Magnesium (1.8-2.4) mg/dl Total Bilirubin (0.2-1.0) mg/dL AST (15-37) U/L ALT (14-59) U/L Alkaline Phosphatase (46-116) U/L Troponin I (0.00-0.056) ng/mL NT-Pro-B Natriuret Pep (0-125) pg/mL Total Protein (6.4-8.2) g/dl Albumin (3.4-5.0) g/dl Globulin gm/dL Albumin/Globulin Ratio (1-2) Urine Color (Yellow) Urine Appearance (Clear) Urine pH (5.0-8.0) Ur Specific [place] (1.005-1.030) Urine Protein (Negative) Urine Glucose (UA) (Negative) Urine Ketones (Negative) Urine Occult Blood (Negative) Urine Nitrite (Negative) Urine Bilirubin (Negative) Urine Urobilinogen (0.2-1.0) Ur Leukocyte Esterase (Negative) Urine RBC (0-5) /hpf Urine WBC (0-5) /hpf Urine WBC Clumps (NOT SEEN) /hpf Ur Epithelial Cells (0-5) /hpf Urine Bacteria (FEW) /hpf Hyaline Casts (0-5) /lpf Urine Mucus (FEW) /hpf Ketones (0.0-0.3) mM Mycoplasma pneumon IgM (NEGATIVE) MRSA (PCR) Negative 07/02/18 Range/Units 16:40 WBC (3.98-10.04) K/mm3 RBC (3.98-5.22) M/mm3 Hgb (11.2-15.7) gm/L Hct (34.1-44.9) % MCV (79.4-94.8) fl MCH (25.6-32.2) pg MCHC (32.2-35.5) g/dl RDW Std Deviation (36.4-46.3) fL Plt Count (182-369) K/mm3 MPV (9.4-12.3) fl Neut % (Auto) (34.0-71.1) % Lymph % (Auto) (19.3-51.7) % [place] % (Auto) (4.7-12.5) % Eos % (Auto) (0.7-5.8) Baso % (Auto) (0.1-1.2) % Neut # (Auto) (1.56-6.13) K/mm3 Lymph # (Auto) (1.18-3.74) K/mm3 [place] # (Auto) (0.24-0.36) K/mm3 Eos # (Auto) (0.04-0.36) K/mm3 Baso # (Auto) (0.01-0.08) K/mm3 Neutrophils % (Manual) (40-60) % Band Neutrophils % (0-10) % Lymphocytes % (Manual) (20-40) % Atypical Lymphs % % Monocytes % (Manual) (2-10) % Eosinophils % (Manual) (0.7-5.8) % Basophils % (Manual) (0.1-1.2) Manual Slide Review Platelet Estimate Polychromasia Hypochromasia Anisocytosis Ovalocytes RBC Morph Comment PT (9.5-12.1) SECONDS INR APTT (24-31) SECONDS D-Dimer, Quantitative (0.19-0.50) mg/L Puncture Site ABG pH (7.35-7.45) ABG pCO2 (35.0-45.0) mmHg ABG pO2 (80.0-100.0) mmHg ABG HCO3 (22.0-26.0) meq/L ABG O2 Saturation (96.0-97.0) % ABG Base Excess (-2-2.0) [place] Test A-a Gradient mmHg O2 Delivery Device Oxygen Flow Rate FiO2 (21.00-100.00) % Pressure Support cmH2O Sodium (136-145) mEq/L Potassium (3.5-5.1) mEq/L Chloride (98-107) mEq/L Carbon Dioxide (21-32) mEq/L Anion Gap (5-15) BUN (7-18) mg/dL Creatinine (0.55-1.02) mg/dL Est Cr Clr Drug Dosing mL/min Estimated GFR (MDRD) (>60) mL/min BUN/Creatinine Ratio (14-18) Glucose (80-115) mg/dL POC Glucose 179 H (80-115) mg/dL Lactic Acid (0.4-2.0) mmol/L Calcium (8.5-10.1) mg/dL Magnesium (1.8-2.4) mg/dl Total Bilirubin (0.2-1.0) mg/dL AST (15-37) U/L ALT (14-59) U/L Alkaline Phosphatase (46-116) U/L Troponin I (0.00-0.056) ng/mL NT-Pro-B Natriuret Pep (0-125) pg/mL Total Protein (6.4-8.2) g/dl Albumin (3.4-5.0) g/dl Globulin gm/dL Albumin/Globulin Ratio (1-2) Urine Color (Yellow) Urine Appearance (Clear) Urine pH (5.0-8.0) Ur Specific [place] (1.005-1.030) Urine Protein (Negative) Urine Glucose (UA) (Negative) Urine Ketones (Negative) Urine Occult Blood (Negative) Urine Nitrite (Negative) Urine Bilirubin (Negative) Urine Urobilinogen (0.2-1.0) Ur Leukocyte Esterase (Negative) Urine RBC (0-5) /hpf Urine WBC (0-5) /hpf Urine WBC Clumps (NOT SEEN) /hpf Ur Epithelial Cells (0-5) /hpf Urine Bacteria (FEW) /hpf Hyaline Casts (0-5) /lpf Urine Mucus (FEW) /hpf Ketones (0.0-0.3) mM Mycoplasma pneumon IgM (NEGATIVE) MRSA (PCR) Pk Results Last 24 Hours: Microbiology 07/01/18 21:20 Aerobic Blood Culture - Preliminary Blood - Venous - Lab Draw Gram Negative Rods Anaerobic Blood Culture - Final 07/01/18 21:10 Aerobic Blood Culture - Preliminary Blood - Venous Gram Negative Rods Anaerobic Blood Culture - Preliminary Gram Negative Rods 07/01/18 21:37 Urine Culture - Preliminary Urine, Catheterized Gram Negative Rods Med Orders - Current: Current Medications Acetaminophen (Tylenol) 650 mg PO Q6HR PRN PRN Reason: Pain Albuterol/Ipratropium (Duoneb 3.0-0.5 Mg/3 Ml) 3 ml NEB Q6HRRT PRN PRN Reason: Shortness of Breath Aspirin (Halfprin) 81 mg PO DAILY [facility] Docusate Sodium (Colace) 200 mg PO DAILY PRN PRN Reason: Constipation Flunisolide (Nasalide Nasal [place]) 0 ml NASBOTH DAILY PRN PRN Reason: Rhinitis Gabapentin (Neurontin) 100 mg PO DAILY [facility] Levofloxacin/Dextrose 750 mg/ (Premix) 150 mls @ 100 mls/hr IV Q48H [facility] Last Admin: 07/02/18 14:08 Dose: 100 mls/hr Insulin Glargine (Lantus Solostar) 14 units SUBCUT DAILY [facility] Insulin Human Lispro (Humalog) 0 unit SUBCUT QIDACANDBED [facility]; Protocol Last Admin: 07/02/18 17:15 Dose: 1 unit Loratadine (Claritin) 10 mg PO DAILY [facility] Methylprednisolone Sodium Succinate (Solu-Medrol) 40 mg IVPUSH DAILY [facility] Last Admin: 07/02/18 14:05 Dose: 40 mg Mycophenolate Mofetil (Cellcept) 500 mg PO BID [facility] Non-Formulary Medication (Tacrolimus) 2 mg PO BID [facility] Non-Formulary Medication (Tacrolimus [Prograf]) 10 mg PO BID [facility] Pantoprazole Sodium (Protonix) 40 mg PO DAILY [facility] Rosuvastatin Calcium (Crestor) 10 mg PO DAILY [facility] Sertraline HCl (Zoloft) 150 mg PO DAILY [facility] Sodium Bicarbonate (Sodium Bicarbonate) 1,300 mg PO BID [facility] Discontinued Medications Enoxaparin Sodium (Lovenox) 95 mg SUBCUT ONETIME STA Stop: 07/01/18 22:29 Last Admin: 07/01/18 22:42 Dose: 95 mg Furosemide (Lasix) 40 mg IVPUSH NOW ONE Stop: 07/01/18 21:03 Last Admin: 07/01/18 21:39 Dose: 40 mg Ceftriaxone Sodium 2 gm/ (Sodium Chloride) 100 mls @ 100 mls/hr IV ONETIME ONE Stop: 07/02/18 02:16 Last Admin: 07/02/18 02:37 Dose: 100 mls/hr Azithromycin 500 mg/ Sodium (Chloride) 250 mls @ 250 mls/hr IV ONETIME ONE Stop: 07/02/18 03:29 Last Admin: 07/02/18 03:09 Dose: 250 mls/hr Ceftriaxone Sodium 2 gm/ (Sodium Chloride) 100 mls @ 100 mls/hr IV Q24H [facility] Insulin Human Regular (Humulin R) 8 unit SUBCUT ONETIME STA Stop: 07/01/18 22:44 Last Admin: 07/01/18 22:56 Dose: 8 units Trimethoprim/Sulfamethoxazole (Septra Ds) 1 tab PO ONETIME ONE Stop: 07/01/18 23:15 Last Admin: 07/01/18 23:18 Dose: 1 tab Trimethoprim/Sulfamethoxazole (Septra Ds) tab PO MOWEFR JANAK - Exam Quality Assessment: Supplemental Oxygen, DVT Prophylaxis General: Alert, Oriented, Cooperative, No Acute Distress HEENT: Pupils Equal, Pupils Reactive, EOMI Neck: Trachea Midline, No JVD Lungs: Normal Respiratory Effort Cardiovascular: Regular Rate GI/Abdominal Exam: Normal Bowel Sounds, Soft, Non-Tender, No Organomegaly, No Distention (Female) Exam: Deferred Back Exam: Normal Inspection Extremities: Normal Inspection, Normal Capillary Refill Skin: Warm Neurological: No New Focal Deficit Psy/Mental Status: Alert, Normal Affect, Normal Mood - Problem List & Annotations (1) Renal transplant, status post SNOMED Code(s): 050377634, 38670066, 765155860 Code(s): Z94.0 - KIDNEY TRANSPLANT STATUS Status: Acute Current Visit: Yes (2) Immunosuppressed status SNOMED Code(s): 22196581 Code(s): D89.9 - DISORDER INVOLVING THE IMMUNE MECHANISM, UNSPECIFIED Status: Acute Current Visit: Yes (3) Chronic kidney disease SNOMED Code(s): 169584686 Code(s): N18.9 - CHRONIC KIDNEY DISEASE, UNSPECIFIED Status: Acute Current Visit: Yes (4) Elevated d-dimer SNOMED Code(s): 923138048 Code(s): R79.89 - OTHER SPECIFIED ABNORMAL FINDINGS OF BLOOD CHEMISTRY Status: Acute Current Visit: Yes (5) Hyperglycemia due to type 2 diabetes mellitus SNOMED Code(s): 113108538077328, 720025850217111 Code(s): E11.65 - TYPE 2 DIABETES MELLITUS WITH HYPERGLYCEMIA Status: Acute Current Visit: Yes (6) UTI (urinary tract infection) SNOMED Code(s): 58066365 Code(s): N39.0 - URINARY TRACT INFECTION, SITE NOT SPECIFIED Status: Acute Current Visit: Yes (7) D-dimer, elevated SNOMED Code(s): 770757605 Code(s): R79.89 - OTHER SPECIFIED ABNORMAL FINDINGS OF BLOOD CHEMISTRY Status: Acute Current Visit: Yes - Problem List Review Problem List Initiated/Reviewed/Updated: Yes - My Orders Last 24 Hours: My Active Orders 07/02/18 01:16 RT Aerosol Therapy [RC] ASDIRECTED Albuterol/Ipratropium [DuoNeb 3.0-0.5 MG/3 ML] 3 ml NEB Q6HRRT PRN 07/02/18 03:43 Blood Glucose Check, Bedside [RC] QIDACANDBED 07/02/18 04:30 Code Status [Resuscitation Status] Routine 07/02/18 07:00 Insulin Lispro [HumaLOG] See Protocol SUBCUT QIDACANDBED 07/02/18 09:45 PT Evaluation and Treatment [CONS] Routine 07/02/18 09:46 Activity as Tolerated [RC] .Routine OT Evaluation and Treatment [CONS] Routine 07/02/18 09:48 RT Arterial Blood Gases, ABG [RC] Click to Edit 07/02/18 11:50 STREP PNEUMONIAE ANTIGEN [MREF] Stat 07/02/18 12:00 RESPIRATORY PANEL Stat 07/02/18 12:54 Acetaminophen [Tylenol] 650 mg PO Q6HR PRN Docusate Sodium [Colace] 200 mg PO DAILY PRN Flunisolide [Nasalide Nasal [place]] 0 ml NASBOTH DAILY PRN 07/02/18 13:30 Levofloxacin/Dextrose 5%-Water [Levaquin in D5W 750 MG/150 ML] 750 mg Premix Bag 1 bag IV Q48H methylPREDNISolone Sod Succ [Solu-MEDROL] 40 mg IVPUSH DAILY 07/02/18 17:40 Patient Status [ADT] Routine 07/02/18 21:00 Mycophenolate Mofetil [Cellcept] 500 mg PO BID Sodium Bicarbonate 1,300 mg PO BID Tacrolimus 2 mg PO BID Tacrolimus [Prograf] 10 mg PO BID 07/02/18 Breakfast Renal Non-Dialysis Diet [DIET] 07/03/18 09:00 Aspirin [Halfprin] 81 mg PO DAILY Gabapentin [Neurontin] 100 mg PO DAILY Insulin Glarg,Human.Rec.Analog [LantUS Solostar] 14 units SUBCUT DAILY Loratadine [Claritin] 10 mg PO DAILY Pantoprazole [ProTONIX] 40 mg PO DAILY Rosuvastatin [Crestor] 10 mg PO DAILY Sertraline [Zoloft] 150 mg PO DAILY - Plan Plan:: Impression: Pulmonary congestion-->resolved Elevated D dimer Acute respiratory distress on BiPAP Hypoxia AUTI with history of recurrence, UC/BC are pending S/P renal transplant on anti rejection agents Chronic HLD CRI Anxiety Depression Diabetes Mellitus type 2 Obesity, BMI 36.6 Plan: IVF V/Q scan ordered, empiric Lovenox Diurese as needed Accurate I/Os Levoquin IV Resp isolation Respiratory work up DVT/GI prophylaxis Consult PT/OT
[2018-07-02] MEDS: Sodium Bicarbonate 650 MG Tab PO SCH (21:22)
[2018-07-02] MEDS: Mycophenolate Mofetil 250 MG Cap PO SCH (21:28)
[2018-07-03] MEDS: Insulin Lispro 100 Unit/ML 3 ML KwikPen SUBCUT SCH ×4 (08:38→21:44)
[2018-07-03] MEDS: Sertraline 50 MG Tab PO SCH (08:39)
[2018-07-03] MEDS: Rosuvastatin 10 MG Tab PO SCH (08:39)
[2018-07-03] MEDS: Mycophenolate Mofetil 250 MG Cap PO SCH ×2 (08:39→20:16)
[2018-07-03] MEDS: Sodium Bicarbonate 650 MG Tab PO SCH ×2 (08:39→20:15)
[2018-07-03] MEDS: Gabapentin 100 MG Cap PO SCH (08:40)
[2018-07-03] MEDS: Pantoprazole 40 MG Tab.CR PO SCH (08:40)
[2018-07-03] MEDS: Insulin Glargine,Human Rec. Analog 100 Units/ML 3 ML Pen SUBCUT SCH (08:40)
[2018-07-03] MEDS: methylPREDNISolone Sodium Succinate 40 MG/1 ML SDV IVPUSH SCH (08:40)
[2018-07-03] MEDS: Loratadine 10 MG Tab PO SCH (08:40)
[2018-07-03] MEDS: Aspirin 81 MG Tab.EC PO SCH (08:40)
[2018-07-03] MEDS ORDERED: Enoxaparin 30 MG/0.3 ML Syringe SUBCUT SCH (10:00)
[2018-07-03] MEDS: Enoxaparin 100 MG/1 ML Syringe SUBCUT SCH (13:00)
--- NOTE | 2018-07-03 13:31 | NM ---
Perfusion lung scan Technique: 2.0 mCi of technetium 99m MAA was given intravenously. Scintigraphic imaging then obtained over both lungs. Findings: No perfusion defects are seen. Impression: 1. Normal perfusion study. Diagnostic code #1
--- NOTE | 2018-07-03 13:31 | US ---
Bilateral lower extremity deep venous ultrasound: Duplex and color flow imaging was obtained of the right and left common femoral, proximal greater saphenous, superficial femoral, popliteal, posterior tibial and peroneal veins. Comparison: No prior venous exam. Findings: Normal phasic flow, augmentation and compression are seen. Impression: 1. No evidence of deep venous thrombosis is seen within the right or left lower extremities. Diagnostic code #1
--- NOTE | 2018-07-03 16:10 | PCM.PN ---
- General Info Date of Service: 07/03/18 Functional Status: Reports: Pain Controlled, Tolerating Diet, Ambulating, Urinating - Review of Systems General: Reports: No Symptoms HEENT: Reports: No Symptoms Pulmonary: Reports: No Symptoms Cardiovascular: Reports: No Symptoms Gastrointestinal: Reports: No Symptoms Genitourinary: Reports: No Symptoms Musculoskeletal: Reports: No Symptoms Skin: Reports: No Symptoms Neurological: Reports: No Symptoms Psychiatric: Reports: No Symptoms - Patient Data Vitals - Most Recent: Last Vital Signs Temp 36.6 C 07/03/18 15:21 Pulse 57 L 07/03/18 15:21 Resp 20 07/03/18 15:21 BP 115/42 L 07/03/18 15:21 Pulse Ox 98 07/03/18 15:21 Weight - Most Recent: 93.712 kg I&O - Last 24 Hours: Intake & Output 07/03/18 07/03/18 07/03/18 06:59 14:59 22:59 Intake Total 400 120 Output Total 325 150 Balance 75 -30 Lab Results Last 24 Hours: Laboratory Results - last 24 hr 07/02/18 07/02/18 07/02/18 Range/Units 12:00 16:40 21:23 WBC (3.98-10.04) K/mm3 RBC (3.98-5.22) M/mm3 Hgb (11.2-15.7) gm/L Hct (34.1-44.9) % MCV (79.4-94.8) fl MCH (25.6-32.2) pg MCHC (32.2-35.5) g/dl RDW Std Deviation (36.4-46.3) fL Plt Count (182-369) K/mm3 MPV (9.4-12.3) fl Neut % (Auto) (34.0-71.1) % Lymph % (Auto) (19.3-51.7) % [place] % (Auto) (4.7-12.5) % Eos % (Auto) (0.7-5.8) Baso % (Auto) (0.1-1.2) % Neut # (Auto) (1.56-6.13) K/mm3 Lymph # (Auto) (1.18-3.74) K/mm3 [place] # (Auto) (0.24-0.36) K/mm3 Eos # (Auto) (0.04-0.36) K/mm3 Baso # (Auto) (0.01-0.08) K/mm3 Manual Slide Review Sodium (136-145) mEq/L Potassium (3.5-5.1) mEq/L Chloride (98-107) mEq/L Carbon Dioxide (21-32) mEq/L Anion Gap (5-15) BUN (7-18) mg/dL Creatinine (0.55-1.02) mg/dL Est Cr Clr Drug Dosing mL/min Estimated GFR (MDRD) (>60) mL/min BUN/Creatinine Ratio (14-18) Glucose (80-115) mg/dL POC Glucose 179 H 209 H (80-115) mg/dL Lactic Acid (0.4-2.0) mmol/L Calcium (8.5-10.1) mg/dL Magnesium (1.8-2.4) mg/dl C-Reactive Protein (<1.0) mg/dL Adenovirus (PCR) Not detected (Not Detected) B. pertussis DNA (PCR) Not detected (Not Detected) B.parapertussis DNA PCR Not detected (Not Detected) C. pneumoniae DNA (PCR) Not detected (Not Detected) Coronavirus (PCR) Not detected (Not Detected) Human Metapneumovir PCR Not detected (Not Detected) Influenza A (RT-PCR) Not detected (Not Detected) Influenza A (H1) PCR Not detected Influ A (H1N1/09) PCR Not detected Influenza A (H3) PCR Not detected Influenza B (RT-PCR) Not detected (Not Detected) M. pneumoniae (PCR) Not detected (Not Detected) Parainfluen 1,2,3,4 PCR Not detected (Not Detected) RSV (PCR) Not detected (Not Detected) Entero/Rhino (PCR) Not detected (Not Detected) 07/03/18 07/03/18 07/03/18 Range/Units 06:17 08:30 08:30 WBC 3.18 L (3.98-10.04) K/mm3 RBC 3.55 L (3.98-5.22) M/mm3 Hgb 9.6 L (11.2-15.7) gm/L Hct 33.1 L (34.1-44.9) % MCV 93.2 (79.4-94.8) fl MCH 27.0 (25.6-32.2) pg MCHC 29.0 L (32.2-35.5) g/dl RDW Std Deviation 50.3 H (36.4-46.3) fL Plt Count 132 L (182-369) K/mm3 MPV 10.2 (9.4-12.3) fl Neut % (Auto) 84.3 H (34.0-71.1) % Lymph % (Auto) 6.3 L (19.3-51.7) % Davison % (Auto) 8.5 (4.7-12.5) % Eos % (Auto) 0 L (0.7-5.8) Baso % (Auto) 0.0 L (0.1-1.2) % Neut # (Auto) 2.68 (1.56-6.13) K/mm3 Lymph # (Auto) 0.20 L (1.18-3.74) K/mm3 [place] # (Auto) 0.27 (0.24-0.36) K/mm3 Eos # (Auto) 0.00 L (0.04-0.36) K/mm3 Baso # (Auto) 0.00 L (0.01-0.08) K/mm3 Manual Slide Review Normal smear Sodium 140 (136-145) mEq/L Potassium 4.8 (3.5-5.1) mEq/L Chloride 109 H (98-107) mEq/L Carbon Dioxide 21 (21-32) mEq/L Anion Gap 14.8 (5-15) BUN 35 H (7-18) mg/dL Creatinine 1.7 H (0.55-1.02) mg/dL Est Cr Clr Drug Dosing 25.84 mL/min Estimated GFR (MDRD) 30 (>60) mL/min BUN/Creatinine Ratio 20.6 H (14-18) Glucose 169 H (80-115) mg/dL POC Glucose 171 H (80-115) mg/dL Lactic Acid (0.4-2.0) mmol/L Calcium 7.9 L (8.5-10.1) mg/dL Magnesium 2.0 (1.8-2.4) mg/dl C-Reactive Protein 19.8 H* (<1.0) mg/dL Adenovirus (PCR) (Not Detected) B. pertussis DNA (PCR) (Not Detected) B.parapertussis DNA PCR (Not Detected) C. pneumoniae DNA (PCR) (Not Detected) Coronavirus (PCR) (Not Detected) Human Metapneumovir PCR (Not Detected) Influenza A (RT-PCR) (Not Detected) Influenza A (H1) PCR Influ A (H1N1/09) PCR Influenza A (H3) PCR Influenza B (RT-PCR) (Not Detected) M. pneumoniae (PCR) (Not Detected) Parainfluen 1,2,3,4 PCR (Not Detected) RSV (PCR) (Not Detected) Entero/Rhino (PCR) (Not Detected) 07/03/18 07/03/18 Range/Units 08:30 12:26 WBC (3.98-10.04) K/mm3 RBC (3.98-5.22) M/mm3 Hgb (11.2-15.7) gm/L Hct (34.1-44.9) % MCV (79.4-94.8) fl MCH (25.6-32.2) pg MCHC (32.2-35.5) g/dl RDW Std Deviation (36.4-46.3) fL Plt Count (182-369) K/mm3 MPV (9.4-12.3) fl Neut % (Auto) (34.0-71.1) % Lymph % (Auto) (19.3-51.7) % [place] % (Auto) (4.7-12.5) % Eos % (Auto) (0.7-5.8) Baso % (Auto) (0.1-1.2) % Neut # (Auto) (1.56-6.13) K/mm3 Lymph # (Auto) (1.18-3.74) K/mm3 [place] # (Auto) (0.24-0.36) K/mm3 Eos # (Auto) (0.04-0.36) K/mm3 Baso # (Auto) (0.01-0.08) K/mm3 Manual Slide Review Sodium (136-145) mEq/L Potassium (3.5-5.1) mEq/L Chloride (98-107) mEq/L Carbon Dioxide (21-32) mEq/L Anion Gap (5-15) BUN (7-18) mg/dL Creatinine (0.55-1.02) mg/dL Est Cr Clr Drug Dosing mL/min Estimated GFR (MDRD) (>60) mL/min BUN/Creatinine Ratio (14-18) Glucose (80-115) mg/dL POC Glucose 198 H (80-115) mg/dL Lactic Acid 1.2 (0.4-2.0) mmol/L Calcium (8.5-10.1) mg/dL Magnesium (1.8-2.4) mg/dl C-Reactive Protein (<1.0) mg/dL Adenovirus (PCR) (Not Detected) B. pertussis DNA (PCR) (Not Detected) B.parapertussis DNA PCR (Not Detected) C. pneumoniae DNA (PCR) (Not Detected) Coronavirus (PCR) (Not Detected) Human Metapneumovir PCR (Not Detected) Influenza A (RT-PCR) (Not Detected) Influenza A (H1) PCR Influ A (H1N1/09) PCR Influenza A (H3) PCR Influenza B (RT-PCR) (Not Detected) M. pneumoniae (PCR) (Not Detected) Parainfluen 1,2,3,4 PCR (Not Detected) RSV (PCR) (Not Detected) Entero/Rhino (PCR) (Not Detected) Pk Results Last 24 Hours: Microbiology 07/01/18 21:37 Urine Culture - Preliminary Urine, Catheterized Escherichia Coli. 07/02/18 11:50 Streptococcus pneumoniae Antigen (M - Final Urine 07/01/18 21:10 Aerobic Blood Culture - Preliminary Blood - Venous Gram Negative Rods Anaerobic Blood Culture - Preliminary Gram Negative Rods 07/01/18 21:20 Aerobic Blood Culture - Preliminary Blood - Venous - Lab Draw Gram Negative Rods Anaerobic Blood Culture - Final Med Orders - Current: Current Medications Acetaminophen (Tylenol) 650 mg PO Q6HR PRN PRN Reason: Pain Albuterol/Ipratropium (Duoneb 3.0-0.5 Mg/3 Ml) 3 ml NEB Q6HRRT PRN PRN Reason: Shortness of Breath Aspirin (Halfprin) 81 mg PO DAILY [facility] Last Admin: 07/03/18 08:40 Dose: 81 mg Docusate Sodium (Colace) 200 mg PO DAILY PRN PRN Reason: Constipation Enoxaparin Sodium (Lovenox) 90 mg SUBCUT DAILY [facility] Last Admin: 07/03/18 13:00 Dose: 90 mg Flunisolide (Nasalide Nasal [place]) 0 ml NASBOTH DAILY PRN PRN Reason: Rhinitis Furosemide (Lasix) 20 mg IVPUSH NOW ONE Stop: 07/03/18 16:01 Gabapentin (Neurontin) 100 mg PO DAILY [facility] Last Admin: 07/03/18 08:40 Dose: 100 mg Meropenem 1 gm/ Sodium (Chloride) 100 mls @ 33.333 mls/hr IV Q8H [facility] Insulin Glargine (Lantus Solostar) 14 units SUBCUT DAILY [facility] Last Admin: 07/03/18 08:40 Dose: 14 units Insulin Human Lispro (Humalog) 0 unit SUBCUT QIDACANDBED [facility]; Protocol Last Admin: 07/03/18 13:01 Dose: 1 unit Loratadine (Claritin) 10 mg PO DAILY [facility] Last Admin: 07/03/18 08:40 Dose: 10 mg Methylprednisolone Sodium Succinate (Solu-Medrol) 40 mg IVPUSH DAILY [facility] Last Admin: 07/03/18 08:40 Dose: 40 mg Mycophenolate Mofetil (Cellcept) 500 mg PO BID [facility] Last Admin: 07/03/18 08:39 Dose: 500 mg Non-Formulary Medication (Fluticasone Propionate) 50 mcg NASBOTH DAILY PRN PRN Reason: Rhinitis Non-Formulary Medication (Tacrolimus) 2 mg PO BID [facility] Pantoprazole Sodium (Protonix) 40 mg PO DAILY [facility] Last Admin: 07/03/18 08:40 Dose: 40 mg Tacrolimus 0.5 Mg (Capsules) 0 each PO BID [facility] Rosuvastatin Calcium (Crestor) 10 mg PO DAILY [facility] Last Admin: 07/03/18 08:39 Dose: 10 mg Sertraline HCl (Zoloft) 150 mg PO DAILY [facility] Last Admin: 07/03/18 08:39 Dose: 150 mg Sodium Bicarbonate (Sodium Bicarbonate) 1,300 mg PO BID [facility] Last Admin: 07/03/18 08:39 Dose: 1,300 mg Discontinued Medications Enoxaparin Sodium (Lovenox) 95 mg SUBCUT ONETIME STA Stop: 07/01/18 22:29 Last Admin: 07/01/18 22:42 Dose: 95 mg Enoxaparin Sodium (Lovenox) 30 mg SUBCUT Q24H [facility] Furosemide (Lasix) 40 mg IVPUSH NOW ONE Stop: 07/01/18 21:03 Last Admin: 07/01/18 21:39 Dose: 40 mg Ceftriaxone Sodium 2 gm/ (Sodium Chloride) 100 mls @ 100 mls/hr IV ONETIME ONE Stop: 07/02/18 02:16 Last Admin: 07/02/18 02:37 Dose: 100 mls/hr Azithromycin 500 mg/ Sodium (Chloride) 250 mls @ 250 mls/hr IV ONETIME ONE Stop: 07/02/18 03:29 Last Admin: 07/02/18 03:09 Dose: 250 mls/hr Ceftriaxone Sodium 2 gm/ (Sodium Chloride) 100 mls @ 100 mls/hr IV Q24H JANAK Levofloxacin/Dextrose 750 mg/ (Premix) 150 mls @ 100 mls/hr IV Q48H [facility] Last Admin: 07/02/18 14:08 Dose: 100 mls/hr Insulin Human Regular (Humulin R) 8 unit SUBCUT ONETIME STA Stop: 07/01/18 22:44 Last Admin: 07/01/18 22:56 Dose: 8 units Tacrolimus 0.5 Mg (Capsules) 0 each PO DAILY [facility] Last Admin: 07/03/18 13:00 Dose: 3 each Tacrolimus 0.5 Mg (Capsules) 0 each PO QPM JANAK Tacrolimus 0.5 Mg (Capsules) 0 each PO DAILY [facility] Trimethoprim/Sulfamethoxazole (Septra Ds) 1 tab PO ONETIME ONE Stop: 07/01/18 23:15 Last Admin: 07/01/18 23:18 Dose: 1 tab Trimethoprim/Sulfamethoxazole (Septra Ds) tab PO MOWEFR JAANK - Exam Quality Assessment: DVT Prophylaxis General: Alert, Oriented, Cooperative HEENT: Pupils Equal, Pupils Reactive, EOMI Neck: Trachea Midline, No JVD Lungs: Normal Respiratory Effort, Decreased Breath Sounds Cardiovascular: Regular Rate, Regular Rhythm GI/Abdominal Exam: Normal Bowel Sounds, Soft, Non-Tender, No Organomegaly, No Distention (Female) Exam: Deferred Back Exam: Normal Inspection Extremities: Normal Inspection, Normal Capillary Refill Skin: Warm Neurological: No New Focal Deficit Psy/Mental Status: Alert, Normal Affect, Normal Mood - Problem List & Annotations (1) Renal transplant, status post SNOMED Code(s): 918525260, 16102432, 672488847 Code(s): Z94.0 - KIDNEY TRANSPLANT STATUS Status: Acute Current Visit: Yes (2) Immunosuppressed status SNOMED Code(s): 35289796 Code(s): D89.9 - DISORDER INVOLVING THE IMMUNE MECHANISM, UNSPECIFIED Status: Acute Current Visit: Yes (3) Chronic kidney disease SNOMED Code(s): 679609913 Code(s): N18.9 - CHRONIC KIDNEY DISEASE, UNSPECIFIED Status: Acute Current Visit: Yes (4) Elevated d-dimer SNOMED Code(s): 523335147 Code(s): R79.89 - OTHER SPECIFIED ABNORMAL FINDINGS OF BLOOD CHEMISTRY Status: Acute Current Visit: Yes (5) Hyperglycemia due to type 2 diabetes mellitus SNOMED Code(s): 317711266664688, 065060542780209 Code(s): E11.65 - TYPE 2 DIABETES MELLITUS WITH HYPERGLYCEMIA Status: Acute Current Visit: Yes (6) UTI (urinary tract infection) SNOMED Code(s): 59215474 Code(s): N39.0 - URINARY TRACT INFECTION, SITE NOT SPECIFIED Status: Acute Current Visit: Yes (7) D-dimer, elevated SNOMED Code(s): 796677062 Code(s): R79.89 - OTHER SPECIFIED ABNORMAL FINDINGS OF BLOOD CHEMISTRY Status: Acute Current Visit: Yes - Problem List Review Problem List Initiated/Reviewed/Updated: Yes - My Orders Last 24 Hours: My Active Orders 07/02/18 17:40 Patient Status [ADT] Routine 07/02/18 21:00 Mycophenolate Mofetil [Cellcept] 500 mg PO BID Sodium Bicarbonate 1,300 mg PO BID 07/03/18 09:00 Aspirin [Halfprin] 81 mg PO DAILY Gabapentin [Neurontin] 100 mg PO DAILY Insulin Glarg,Human.Rec.Analog [LantUS Solostar] 14 units SUBCUT DAILY Loratadine [Claritin] 10 mg PO DAILY Pantoprazole [ProTONIX] 40 mg PO DAILY Rosuvastatin [Crestor] 10 mg PO DAILY Sertraline [Zoloft] 150 mg PO DAILY 07/03/18 15:57 Fluticasone Propionate 50 mcg NASBOTH DAILY PRN 07/03/18 16:00 Furosemide [Lasix] 20 mg IVPUSH NOW ONE Meropenem [Merrem] 1 gm Sodium Chloride 0.9% [Normal Saline] 100 ml IV Q8H Tacrolimus 2 mg PO BID 07/03/18 21:00 Patient's Own Medication [Ptom] 0 each PO BID - Plan Plan:: Impression: Pulmonary congestion-->resolved Elevated D dimer-->normal perfusion study, negative Venous doppler Acute respiratory distress on BiPAP-->resolved, had BIPAP<24 hours on admission Hypoxia---resolved AUTI with history of recurrence, UC/BC; called by micro will stop Levoquin, will start Meropenem S/P renal transplant on anti rejection agents Chronic HLD CRI Anxiety Depression Diabetes Mellitus type 2 Obesity, BMI 36.6 Plan: IVF V/Q scan ordered, empiric Lovenox Diurese as needed Accurate I/Os Levoquin IV Resp isolation Respiratory work up DVT/GI prophylaxis Consult PT/OT
[2018-07-03] MEDS ORDERED: Furosemide 20 MG/2 ML VIAL IV ONE (16:15)
[2018-07-03] MEDS: Meropenem 1 GM in Sodium Chloride 0.9% 100 ML IV SCH (16:58)
[2018-07-03] MEDS: Acetaminophen 325 MG Tab PO PRN (18:15)
[2018-07-03] MEDS: Tacrolimus 1 MG Cap PO SCH (20:15)
[2018-07-04] MEDS: Meropenem 1 GM in Sodium Chloride 0.9% 100 ML IV SCH ×4 (00:22→23:11)
[2018-07-04] MEDS: Insulin Lispro 100 Unit/ML 3 ML KwikPen SUBCUT SCH ×4 (08:56→22:39)
[2018-07-04] MEDS: Insulin Glargine,Human Rec. Analog 100 Units/ML 3 ML Pen SUBCUT SCH (08:58)
[2018-07-04] MEDS: methylPREDNISolone Sodium Succinate 40 MG/1 ML SDV IVPUSH SCH (08:59)
[2018-07-04] MEDS: Sertraline 50 MG Tab PO SCH (09:03)
[2018-07-04] MEDS: Sodium Bicarbonate 650 MG Tab PO SCH ×2 (09:03→22:38)
[2018-07-04] MEDS: Aspirin 81 MG Tab.EC PO SCH (09:04)
[2018-07-04] MEDS: Gabapentin 100 MG Cap PO SCH (09:04)
[2018-07-04] MEDS: Rosuvastatin 10 MG Tab PO SCH (09:05)
[2018-07-04] MEDS: Loratadine 10 MG Tab PO SCH (09:05)
[2018-07-04] MEDS: Pantoprazole 40 MG Tab.CR PO SCH (09:05)
[2018-07-04] MEDS: Tacrolimus 1 MG Cap PO SCH ×2 (09:06→22:34)
[2018-07-04] MEDS: Enoxaparin 100 MG/1 ML Syringe SUBCUT SCH (09:07)
[2018-07-04] MEDS: Mycophenolate Mofetil 250 MG Cap PO SCH ×2 (10:03→22:34)
--- NOTE | 2018-07-04 18:09 | PCM.PN ---
- General Info Date of Service: 07/04/18 Functional Status: Reports: Pain Controlled, Tolerating Diet, Ambulating, Urinating - Review of Systems General: Reports: No Symptoms HEENT: Reports: No Symptoms Pulmonary: Reports: No Symptoms Cardiovascular: Reports: No Symptoms Gastrointestinal: Reports: No Symptoms Genitourinary: Reports: No Symptoms Musculoskeletal: Reports: No Symptoms Skin: Reports: No Symptoms Neurological: Reports: No Symptoms Psychiatric: Reports: No Symptoms - Patient Data Vitals - Most Recent: Last Vital Signs Temp 36.6 C 07/04/18 15:01 Pulse 62 07/04/18 15:01 Resp 16 07/04/18 15:01 BP 127/54 L 07/04/18 15:01 Pulse Ox 100 07/04/18 15:01 Weight - Most Recent: 91.535 kg I&O - Last 24 Hours: Intake & Output 07/04/18 07/04/18 07/04/18 06:59 14:59 22:59 Intake Total 369 979 7808 Output Total 3 Balance 438 458 1821 Lab Results Last 24 Hours: Laboratory Results - last 24 hr 07/03/18 07/04/18 07/04/18 Range/Units 20:38 05:21 05:21 WBC 3.49 L (3.98-10.04) K/mm3 RBC 3.61 L (3.98-5.22) M/mm3 Hgb 9.9 L (11.2-15.7) gm/L Hct 33.3 L (34.1-44.9) % MCV 92.2 (79.4-94.8) fl MCH 27.4 (25.6-32.2) pg MCHC 29.7 L (32.2-35.5) g/dl RDW Std Deviation 50.8 H (36.4-46.3) fL Plt Count 153 L (182-369) K/mm3 MPV 11.1 (9.4-12.3) fl Neut % (Auto) 86.6 H (34.0-71.1) % Lymph % (Auto) 5.7 L (19.3-51.7) % [place] % (Auto) 7.7 (4.7-12.5) % Eos % (Auto) 0 L (0.7-5.8) Baso % (Auto) 0.0 L (0.1-1.2) % Neut # (Auto) 3.02 (1.56-6.13) K/mm3 Lymph # (Auto) 0.20 L (1.18-3.74) K/mm3 [place] # (Auto) 0.27 (0.24-0.36) K/mm3 Eos # (Auto) 0.00 L (0.04-0.36) K/mm3 Baso # (Auto) 0.00 L (0.01-0.08) K/mm3 Manual Slide Review Abnormal smear Sodium 139 (136-145) mEq/L Potassium 4.7 (3.5-5.1) mEq/L Chloride 108 H (98-107) mEq/L Carbon Dioxide 21 (21-32) mEq/L Anion Gap 14.7 (5-15) BUN 43 H (7-18) mg/dL Creatinine 1.7 H (0.55-1.02) mg/dL Est Cr Clr Drug Dosing 25.84 mL/min Estimated GFR (MDRD) 30 (>60) mL/min BUN/Creatinine Ratio 25.3 H (14-18) Glucose 197 H (80-115) mg/dL POC Glucose 287 H (80-115) mg/dL Calcium 8.1 L (8.5-10.1) mg/dL Magnesium 2.1 (1.8-2.4) mg/dl C-Reactive Protein 11.7 H* (<1.0) mg/dL 07/04/18 07/04/18 07/04/18 Range/Units 06:33 11:29 16:49 WBC (3.98-10.04) K/mm3 RBC (3.98-5.22) M/mm3 Hgb (11.2-15.7) gm/L Hct (34.1-44.9) % MCV (79.4-94.8) fl MCH (25.6-32.2) pg MCHC (32.2-35.5) g/dl RDW Std Deviation (36.4-46.3) fL Plt Count (182-369) K/mm3 MPV (9.4-12.3) fl Neut % (Auto) (34.0-71.1) % Lymph % (Auto) (19.3-51.7) % [place] % (Auto) (4.7-12.5) % Eos % (Auto) (0.7-5.8) Baso % (Auto) (0.1-1.2) % Neut # (Auto) (1.56-6.13) K/mm3 Lymph # (Auto) (1.18-3.74) K/mm3 [place] # (Auto) (0.24-0.36) K/mm3 Eos # (Auto) (0.04-0.36) K/mm3 Baso # (Auto) (0.01-0.08) K/mm3 Manual Slide Review Sodium (136-145) mEq/L Potassium (3.5-5.1) mEq/L Chloride (98-107) mEq/L Carbon Dioxide (21-32) mEq/L Anion Gap (5-15) BUN (7-18) mg/dL Creatinine (0.55-1.02) mg/dL Est Cr Clr Drug Dosing mL/min Estimated GFR (MDRD) (>60) mL/min BUN/Creatinine Ratio (14-18) Glucose (80-115) mg/dL POC Glucose 192 H 186 H 298 H (80-115) mg/dL Calcium (8.5-10.1) mg/dL Magnesium (1.8-2.4) mg/dl C-Reactive Protein (<1.0) mg/dL Pk Results Last 24 Hours: Microbiology 07/01/18 21:20 Aerobic Blood Culture - Final Blood - Venous - Lab Draw (Esbl) Escherichia Coli Anaerobic Blood Culture - Final 07/01/18 21:10 Aerobic Blood Culture - Final Blood - Venous (Esbl) Escherichia Coli Anaerobic Blood Culture - Preliminary (Esbl) Escherichia Coli 07/01/18 21:37 Urine Culture - Preliminary Urine, Catheterized (Esbl) Escherichia Coli Med Orders - Current: Current Medications Acetaminophen (Tylenol) 650 mg PO Q6HR PRN PRN Reason: Pain Last Admin: 07/03/18 18:15 Dose: 650 mg Albuterol/Ipratropium (Duoneb 3.0-0.5 Mg/3 Ml) 3 ml NEB Q6HRRT PRN PRN Reason: Shortness of Breath Aspirin (Halfprin) 81 mg PO DAILY [facility] Last Admin: 07/04/18 09:04 Dose: 81 mg Docusate Sodium (Colace) 200 mg PO DAILY PRN PRN Reason: Constipation Enoxaparin Sodium (Lovenox) 90 mg SUBCUT DAILY [facility] Last Admin: 07/04/18 09:07 Dose: 90 mg Flunisolide (Nasalide Nasal [place]) 0 ml NASBOTH Q12H PRN PRN Reason: Rhinitis Gabapentin (Neurontin) 100 mg PO DAILY [facility] Last Admin: 07/04/18 09:04 Dose: 100 mg Meropenem 1 gm/ Sodium (Chloride) 100 mls @ 33.333 mls/hr IV Q8H [facility] Last Admin: 07/04/18 16:54 Dose: 33.333 mls/hr Insulin Glargine (Lantus Solostar) 14 units SUBCUT DAILY [facility] Last Admin: 07/04/18 08:58 Dose: 14 units Insulin Human Lispro (Humalog) 0 unit SUBCUT QIDACANDBED [facility]; Protocol Last Admin: 07/04/18 16:55 Dose: 3 unit Loratadine (Claritin) 10 mg PO DAILY [facility] Last Admin: 07/04/18 09:05 Dose: 10 mg Lorazepam (Ativan) 0.5 mg PO Q8H PRN PRN Reason: Anxiety Methylprednisolone Sodium Succinate (Solu-Medrol) 40 mg IVPUSH DAILY [facility] Last Admin: 07/04/18 08:59 Dose: 40 mg Mycophenolate Mofetil (Cellcept) 500 mg PO BID [facility] Last Admin: 07/04/18 10:03 Dose: 500 mg Pantoprazole Sodium (Protonix) 40 mg PO DAILY [facility] Last Admin: 07/04/18 09:05 Dose: 40 mg Rosuvastatin Calcium (Crestor) 10 mg PO DAILY [facility] Last Admin: 07/04/18 09:05 Dose: 10 mg Sertraline HCl (Zoloft) 150 mg PO DAILY [facility] Last Admin: 07/04/18 09:03 Dose: 150 mg Sodium Bicarbonate (Sodium Bicarbonate) 1,300 mg PO BID [facility] Last Admin: 07/04/18 09:03 Dose: 1,300 mg Tacrolimus (Prograf) 2 mg PO BID [facility] Last Admin: 07/04/18 09:06 Dose: 2 mg Discontinued Medications Enoxaparin Sodium (Lovenox) 95 mg SUBCUT ONETIME STA Stop: 07/01/18 22:29 Last Admin: 07/01/18 22:42 Dose: 95 mg Enoxaparin Sodium (Lovenox) 30 mg SUBCUT Q24H [facility] Flunisolide (Nasalide Nasal [place]) 0 ml NASBOTH DAILY PRN PRN Reason: Rhinitis Furosemide (Lasix) 40 mg IVPUSH NOW ONE Stop: 07/01/18 21:03 Last Admin: 07/01/18 21:39 Dose: 40 mg Furosemide (Lasix) 20 mg IV ONETIME ONE Stop: 07/03/18 16:16 Last Admin: 07/03/18 16:59 Dose: 20 mg Ceftriaxone Sodium 2 gm/ (Sodium Chloride) 100 mls @ 100 mls/hr IV ONETIME ONE Stop: 07/02/18 02:16 Last Admin: 07/02/18 02:37 Dose: 100 mls/hr Azithromycin 500 mg/ Sodium (Chloride) 250 mls @ 250 mls/hr IV ONETIME ONE Stop: 07/02/18 03:29 Last Admin: 07/02/18 03:09 Dose: 250 mls/hr Ceftriaxone Sodium 2 gm/ (Sodium Chloride) 100 mls @ 100 mls/hr IV Q24H [facility] Levofloxacin/Dextrose 750 mg/ (Premix) 150 mls @ 100 mls/hr IV Q48H [facility] Last Admin: 07/02/18 14:08 Dose: 100 mls/hr Insulin Human Regular (Humulin R) 8 unit SUBCUT ONETIME STA Stop: 07/01/18 22:44 Last Admin: 07/01/18 22:56 Dose: 8 units Tacrolimus 0.5 Mg (Capsules) 0 each PO DAILY [facility] Last Admin: 07/03/18 13:00 Dose: 3 each Tacrolimus 0.5 Mg (Capsules) 0 each PO QPM [facility] Tacrolimus 0.5 Mg (Capsules) 0 each PO BID [facility] Tacrolimus 0.5 Mg (Capsules) 0 each PO DAILY [facility] Trimethoprim/Sulfamethoxazole (Septra Ds) 1 tab PO ONETIME ONE Stop: 07/01/18 23:15 Last Admin: 07/01/18 23:18 Dose: 1 tab Trimethoprim/Sulfamethoxazole (Septra Ds) tab PO MOWEFR JANAK - Exam Quality Assessment: Supplemental Oxygen, DVT Prophylaxis General: Alert, Oriented, Cooperative, No Acute Distress HEENT: Pupils Equal, Pupils Reactive, EOMI Neck: Trachea Midline, No JVD Lungs: Normal Respiratory Effort Cardiovascular: Regular Rate, Regular Rhythm GI/Abdominal Exam: Normal Bowel Sounds, Soft, Non-Tender, No Organomegaly, No Distention (Female) Exam: Deferred Back Exam: Normal Inspection Extremities: Normal Inspection, Non-Tender, Normal Capillary Refill Skin: Warm Neurological: No New Focal Deficit Psy/Mental Status: Alert, Normal Affect, Normal Mood - Problem List & Annotations (1) Renal transplant, status post SNOMED Code(s): 756866105, 93648823, 435795026 Code(s): Z94.0 - KIDNEY TRANSPLANT STATUS Status: Acute Current Visit: Yes (2) Immunosuppressed status SNOMED Code(s): 57131074 Code(s): D89.9 - DISORDER INVOLVING THE IMMUNE MECHANISM, UNSPECIFIED Status: Acute Current Visit: Yes (3) Chronic kidney disease SNOMED Code(s): 040942627 Code(s): N18.9 - CHRONIC KIDNEY DISEASE, UNSPECIFIED Status: Acute Current Visit: Yes (4) Elevated d-dimer SNOMED Code(s): 733232095 Code(s): R79.89 - OTHER SPECIFIED ABNORMAL FINDINGS OF BLOOD CHEMISTRY Status: Acute Current Visit: Yes (5) Hyperglycemia due to type 2 diabetes mellitus SNOMED Code(s): 472843094041030, 023683282636256 Code(s): E11.65 - TYPE 2 DIABETES MELLITUS WITH HYPERGLYCEMIA Status: Acute Current Visit: Yes (6) UTI (urinary tract infection) SNOMED Code(s): 54497486 Code(s): N39.0 - URINARY TRACT INFECTION, SITE NOT SPECIFIED Status: Acute Current Visit: Yes (7) D-dimer, elevated SNOMED Code(s): 629593311 Code(s): R79.89 - OTHER SPECIFIED ABNORMAL FINDINGS OF BLOOD CHEMISTRY Status: Acute Current Visit: Yes - Problem List Review Problem List Initiated/Reviewed/Updated: Yes - My Orders Last 24 Hours: My Active Orders 07/03/18 21:00 Flunisolide [Nasalide Nasal [place]] 0 ml NASBOTH Q12H PRN Tacrolimus [Prograf] 2 mg PO BID 07/04/18 10:33 LORazepam [Ativan] 0.5 mg PO Q8H PRN - Plan Plan:: Impression: Pulmonary congestion-->resolved Elevated D dimer-->normal perfusion study, negative Venous doppler Acute respiratory distress on BiPAP-->resolved, had BIPAP<24 hours on admission Hypoxia---resolved AUTI with history of recurrence, UC/BC; called by micro will stop Levoquin, will start Meropenem S/P renal transplant on anti rejection agents Chronic HLD CRI Anxiety Depression Diabetes Mellitus type 2 Obesity, BMI 36.6 Plan: IVF Repeat BCs after 48 hours of current ATB therapy Diurese as needed Accurate I/Os Levoquin IV Resp isolation--DCd DVT/GI prophylaxis Consult PT/OT LOS>96 hours with change in ATB for recurrent UTI
[2018-07-04] MEDS: Furosemide 20 MG/2 ML VIAL IVPUSH SCH ×2 (18:51→22:35)
[2018-07-04] MEDS: LORazepam 0.5 MG Tab PO PRN (22:43)
[2018-07-05] MEDS: Insulin Lispro 100 Unit/ML 3 ML KwikPen SUBCUT SCH ×4 (09:03→22:03)
[2018-07-05] MEDS: Insulin Glargine,Human Rec. Analog 100 Units/ML 3 ML Pen SUBCUT SCH (09:04)
[2018-07-05] MEDS: Furosemide 20 MG/2 ML VIAL IVPUSH SCH ×2 (10:00→21:58)
[2018-07-05] MEDS: Meropenem 1 GM in Sodium Chloride 0.9% 100 ML IV SCH ×3 (10:00→23:08)
[2018-07-05] MEDS: Sertraline 50 MG Tab PO SCH (10:00)
[2018-07-05] MEDS: Mycophenolate Mofetil 250 MG Cap PO SCH ×2 (10:00→21:58)
[2018-07-05] MEDS: Loratadine 10 MG Tab PO SCH (10:00)
[2018-07-05] MEDS: Sodium Bicarbonate 650 MG Tab PO SCH ×2 (10:00→21:59)
[2018-07-05] MEDS: Rosuvastatin 10 MG Tab PO SCH (10:00)
[2018-07-05] MEDS: Aspirin 81 MG Tab.EC PO SCH (10:00)
[2018-07-05] MEDS: Gabapentin 100 MG Cap PO SCH (10:00)
[2018-07-05] MEDS: Tacrolimus 1 MG Cap PO SCH ×2 (10:00→21:58)
[2018-07-05] MEDS: Pantoprazole 40 MG Tab.CR PO SCH (10:00)
[2018-07-05] MEDS: Enoxaparin 100 MG/1 ML Syringe SUBCUT SCH (10:12)
[2018-07-05] MEDS: methylPREDNISolone Sodium Succinate 40 MG/1 ML SDV IVPUSH SCH (10:36)
[2018-07-05] MEDS: predniSONE 20 MG Tab PO SCH (10:37)
--- NOTE | 2018-07-05 18:22 | PCM.PN ---
- General Info Date of Service: 07/05/18 Subjective Update: Repeat blood cultures, continue Meropenem Functional Status: Reports: Pain Controlled, Tolerating Diet, Ambulating, Urinating - Review of Systems General: Reports: No Symptoms HEENT: Reports: No Symptoms Pulmonary: Reports: No Symptoms Cardiovascular: Reports: No Symptoms Gastrointestinal: Reports: No Symptoms Genitourinary: Reports: No Symptoms Musculoskeletal: Reports: No Symptoms Skin: Reports: No Symptoms Neurological: Reports: No Symptoms Psychiatric: Reports: No Symptoms - Patient Data Vitals - Most Recent: Last Vital Signs Temp 36.6 C 07/05/18 16:57 Pulse 58 L 07/05/18 16:57 Resp 16 07/05/18 16:57 BP 103/52 L 07/05/18 16:57 Pulse Ox 100 07/05/18 16:57 Weight - Most Recent: 91.399 kg I&O - Last 24 Hours: Intake & Output 07/05/18 07/05/18 07/05/18 06:59 14:59 22:59 Intake Total 640 540 400 Balance 640 540 400 Lab Results Last 24 Hours: Laboratory Results - last 24 hr 07/04/18 07/05/18 07/05/18 Range/Units 22:29 05:46 05:46 WBC 2.94 L (3.98-10.04) K/mm3 RBC 3.77 L (3.98-5.22) M/mm3 Hgb 10.2 L (11.2-15.7) gm/L Hct 35.0 (34.1-44.9) % MCV 92.8 (79.4-94.8) fl MCH 27.1 (25.6-32.2) pg MCHC 29.1 L (32.2-35.5) g/dl RDW Std Deviation 50.1 H (36.4-46.3) fL Plt Count 145 L (182-369) K/mm3 MPV 11.2 (9.4-12.3) fl Neut % (Auto) 78.6 H (34.0-71.1) % Lymph % (Auto) 8.8 L (19.3-51.7) % [place] % (Auto) 11.6 (4.7-12.5) % Eos % (Auto) 0 L (0.7-5.8) Baso % (Auto) 0.3 (0.1-1.2) % Neut # (Auto) 2.31 (1.56-6.13) K/mm3 Lymph # (Auto) 0.26 L (1.18-3.74) K/mm3 [place] # (Auto) 0.34 (0.24-0.36) K/mm3 Eos # (Auto) 0.00 L (0.04-0.36) K/mm3 Baso # (Auto) 0.01 (0.01-0.08) K/mm3 Manual Slide Review Abnormal smear Sodium 139 (136-145) mEq/L Potassium 4.9 (3.5-5.1) mEq/L Chloride 107 (98-107) mEq/L Carbon Dioxide 22 (21-32) mEq/L Anion Gap 14.9 (5-15) BUN 46 H (7-18) mg/dL Creatinine 1.7 H (0.55-1.02) mg/dL Est Cr Clr Drug Dosing 25.84 mL/min Estimated GFR (MDRD) 30 (>60) mL/min BUN/Creatinine Ratio 27.1 H (14-18) Glucose 282 H (80-115) mg/dL POC Glucose 371 H (80-115) mg/dL Calcium 8.0 L (8.5-10.1) mg/dL Magnesium 2.0 (1.8-2.4) mg/dl C-Reactive Protein 5.2 H* (<1.0) mg/dL 07/05/18 07/05/18 07/05/18 Range/Units 06:25 11:46 17:05 WBC (3.98-10.04) K/mm3 RBC (3.98-5.22) M/mm3 Hgb (11.2-15.7) gm/L Hct (34.1-44.9) % MCV (79.4-94.8) fl MCH (25.6-32.2) pg MCHC (32.2-35.5) g/dl RDW Std Deviation (36.4-46.3) fL Plt Count (182-369) K/mm3 MPV (9.4-12.3) fl Neut % (Auto) (34.0-71.1) % Lymph % (Auto) (19.3-51.7) % [place] % (Auto) (4.7-12.5) % Eos % (Auto) (0.7-5.8) Baso % (Auto) (0.1-1.2) % Neut # (Auto) (1.56-6.13) K/mm3 Lymph # (Auto) (1.18-3.74) K/mm3 [place] # (Auto) (0.24-0.36) K/mm3 Eos # (Auto) (0.04-0.36) K/mm3 Baso # (Auto) (0.01-0.08) K/mm3 Manual Slide Review Sodium (136-145) mEq/L Potassium (3.5-5.1) mEq/L Chloride (98-107) mEq/L Carbon Dioxide (21-32) mEq/L Anion Gap (5-15) BUN (7-18) mg/dL Creatinine (0.55-1.02) mg/dL Est Cr Clr Drug Dosing mL/min Estimated GFR (MDRD) (>60) mL/min BUN/Creatinine Ratio (14-18) Glucose (80-115) mg/dL POC Glucose 287 H 221 H 368 H (80-115) mg/dL Calcium (8.5-10.1) mg/dL Magnesium (1.8-2.4) mg/dl C-Reactive Protein (<1.0) mg/dL Pk Results Last 24 Hours: Microbiology 07/01/18 21:37 Urine Culture - Final Urine, Catheterized (Esbl) Escherichia Coli 07/01/18 21:10 Aerobic Blood Culture - Final Blood - Venous (Esbl) Escherichia Coli Anaerobic Blood Culture - Final (Esbl) Escherichia Coli Med Orders - Current: Current Medications Acetaminophen (Tylenol) 650 mg PO Q6HR PRN PRN Reason: Pain Last Admin: 07/03/18 18:15 Dose: 650 mg Albuterol/Ipratropium (Duoneb 3.0-0.5 Mg/3 Ml) 3 ml NEB Q6HRRT PRN PRN Reason: Shortness of Breath Aspirin (Halfprin) 81 mg PO DAILY [facility] Last Admin: 07/05/18 10:00 Dose: 81 mg Docusate Sodium (Colace) 200 mg PO DAILY PRN PRN Reason: Constipation Enoxaparin Sodium (Lovenox) 90 mg SUBCUT DAILY [facility] Last Admin: 07/05/18 10:12 Dose: 90 mg Flunisolide (Nasalide Nasal [place]) 0 ml NASBOTH Q12H PRN PRN Reason: Rhinitis Furosemide (Lasix) 20 mg IVPUSH BID [facility] Last Admin: 07/05/18 10:00 Dose: 20 mg Gabapentin (Neurontin) 100 mg PO DAILY [facility] Last Admin: 07/05/18 10:00 Dose: 100 mg Meropenem 1 gm/ Sodium (Chloride) 100 mls @ 33.333 mls/hr IV Q8H [facility] Last Admin: 07/05/18 17:07 Dose: 33.333 mls/hr Insulin Glargine (Lantus Solostar) 14 units SUBCUT DAILY [facility] Last Admin: 07/05/18 09:04 Dose: 14 units Insulin Human Lispro (Humalog) 0 unit SUBCUT QIDACANDBED [facility]; Protocol Last Admin: 07/05/18 17:21 Dose: 5 unit Loratadine (Claritin) 10 mg PO DAILY [facility] Last Admin: 07/05/18 10:00 Dose: 10 mg Lorazepam (Ativan) 0.5 mg PO Q8H PRN PRN Reason: Anxiety Last Admin: 07/04/18 22:43 Dose: 0.5 mg Mycophenolate Mofetil (Cellcept) 500 mg PO BID [facility] Last Admin: 07/05/18 10:00 Dose: 500 mg Pantoprazole Sodium (Protonix) 40 mg PO DAILY [facility] Last Admin: 07/05/18 10:00 Dose: 40 mg Prednisone (Prednisone) 40 mg PO DAILY [facility] Stop: 07/07/18 09:01 Last Admin: 07/05/18 10:37 Dose: 40 mg Prednisone (Prednisone) 30 mg PO DAILY [facility] Stop: 07/10/18 09:01 Prednisone (Prednisone) 20 mg PO DAILY [facility] Stop: 07/13/18 09:01 Prednisone (Prednisone) 10 mg PO DAILY [facility] Stop: 07/16/18 09:01 Rosuvastatin Calcium (Crestor) 10 mg PO DAILY [facility] Last Admin: 07/05/18 10:00 Dose: 10 mg Sertraline HCl (Zoloft) 150 mg PO DAILY [facility] Last Admin: 07/05/18 10:00 Dose: 150 mg Sodium Bicarbonate (Sodium Bicarbonate) 1,300 mg PO BID [facility] Last Admin: 07/05/18 10:00 Dose: 1,300 mg Tacrolimus (Prograf) 2 mg PO BID [facility] Last Admin: 07/05/18 10:00 Dose: 2 mg Discontinued Medications Enoxaparin Sodium (Lovenox) 95 mg SUBCUT ONETIME STA Stop: 07/01/18 22:29 Last Admin: 07/01/18 22:42 Dose: 95 mg Enoxaparin Sodium (Lovenox) 30 mg SUBCUT Q24H [facility] Flunisolide (Nasalide Nasal [place]) 0 ml NASBOTH DAILY PRN PRN Reason: Rhinitis Furosemide (Lasix) 40 mg IVPUSH NOW ONE Stop: 07/01/18 21:03 Last Admin: 07/01/18 21:39 Dose: 40 mg Furosemide (Lasix) 20 mg IV ONETIME ONE Stop: 07/03/18 16:16 Last Admin: 07/03/18 16:59 Dose: 20 mg Ceftriaxone Sodium 2 gm/ (Sodium Chloride) 100 mls @ 100 mls/hr IV ONETIME ONE Stop: 07/02/18 02:16 Last Admin: 07/02/18 02:37 Dose: 100 mls/hr Azithromycin 500 mg/ Sodium (Chloride) 250 mls @ 250 mls/hr IV ONETIME ONE Stop: 07/02/18 03:29 Last Admin: 07/02/18 03:09 Dose: 250 mls/hr Ceftriaxone Sodium 2 gm/ (Sodium Chloride) 100 mls @ 100 mls/hr IV Q24H [facility] Levofloxacin/Dextrose 750 mg/ (Premix) 150 mls @ 100 mls/hr IV Q48H [facility] Last Admin: 07/02/18 14:08 Dose: 100 mls/hr Insulin Human Regular (Humulin R) 8 unit SUBCUT ONETIME STA Stop: 07/01/18 22:44 Last Admin: 07/01/18 22:56 Dose: 8 units Methylprednisolone Sodium Succinate (Solu-Medrol) 40 mg IVPUSH DAILY [facility] Last Admin: 07/05/18 10:36 Dose: Not Given Tacrolimus 0.5 Mg (Capsules) 0 each PO DAILY [facility] Last Admin: 07/03/18 13:00 Dose: 3 each Tacrolimus 0.5 Mg (Capsules) 0 each PO QPM [facility] Tacrolimus 0.5 Mg (Capsules) 0 each PO BID [facility] Tacrolimus 0.5 Mg (Capsules) 0 each PO DAILY [facility] Trimethoprim/Sulfamethoxazole (Septra Ds) 1 tab PO ONETIME ONE Stop: 07/01/18 23:15 Last Admin: 07/01/18 23:18 Dose: 1 tab Trimethoprim/Sulfamethoxazole (Septra Ds) tab PO MOWEFR JANAK - Exam Quality Assessment: Supplemental Oxygen General: Alert, Oriented, Cooperative HEENT: Pupils Equal, Pupils Reactive, EOMI Neck: Trachea Midline, No JVD Lungs: Normal Respiratory Effort Cardiovascular: Regular Rate, Regular Rhythm GI/Abdominal Exam: Normal Bowel Sounds, Soft, Non-Tender, No Organomegaly, No Distention (Female) Exam: Deferred Back Exam: Normal Inspection Extremities: Normal Inspection, Non-Tender, Normal Capillary Refill - Problem List & Annotations (1) Renal transplant, status post SNOMED Code(s): 650223328, 35322670, 464414583 Code(s): Z94.0 - KIDNEY TRANSPLANT STATUS Status: Acute Current Visit: Yes (2) Immunosuppressed status SNOMED Code(s): 98642625 Code(s): D89.9 - DISORDER INVOLVING THE IMMUNE MECHANISM, UNSPECIFIED Status: Acute Current Visit: Yes (3) Chronic kidney disease SNOMED Code(s): 128873164 Code(s): N18.9 - CHRONIC KIDNEY DISEASE, UNSPECIFIED Status: Acute Current Visit: Yes (4) Elevated d-dimer SNOMED Code(s): 325768962 Code(s): R79.89 - OTHER SPECIFIED ABNORMAL FINDINGS OF BLOOD CHEMISTRY Status: Acute Current Visit: Yes (5) Hyperglycemia due to type 2 diabetes mellitus SNOMED Code(s): 238877849537936, 973184477645028 Code(s): E11.65 - TYPE 2 DIABETES MELLITUS WITH HYPERGLYCEMIA Status: Acute Current Visit: Yes (6) UTI (urinary tract infection) SNOMED Code(s): 96819327 Code(s): N39.0 - URINARY TRACT INFECTION, SITE NOT SPECIFIED Status: Acute Current Visit: Yes (7) D-dimer, elevated SNOMED Code(s): 785889729 Code(s): R79.89 - OTHER SPECIFIED ABNORMAL FINDINGS OF BLOOD CHEMISTRY Status: Acute Current Visit: Yes - Problem List Review Problem List Initiated/Reviewed/Updated: Yes - My Orders Last 24 Hours: My Active Orders 07/04/18 18:30 Furosemide [Lasix] 20 mg IVPUSH BID 07/05/18 09:31 Blood Culture x2 Reflex Set [OM.PC] Stat 07/05/18 10:00 CULTURE BLOOD [BC] Stat 07/05/18 10:30 predniSONE 40 mg PO DAILY 07/05/18 10:45 CULTURE BLOOD [BC] Stat 07/08/18 09:00 predniSONE 30 mg PO DAILY 07/11/18 09:00 predniSONE 20 mg PO DAILY 07/14/18 09:00 predniSONE 10 mg PO DAILY - Plan Plan:: Impression: Pulmonary congestion-->resolved Elevated D dimer-->normal perfusion study, negative Venous doppler Acute respiratory distress on BiPAP-->resolved, had BIPAP<24 hours on admission Hypoxia---resolved AUTI with history of recurrence, UC/BC; called by micro will stop Levoquin, Continue Meropenem S/P renal transplant on anti rejection agents Chronic HLD CRI Anxiety Depression Diabetes Mellitus type 2 Obesity, BMI 36.6 Plan: IVF Repeat BCs after 48 hours of current ATB therapy Diurese as needed Accurate I/Os Levoquin IV Resp isolation--DCd DVT/GI prophylaxis Consult PT/OT LOS>96 hours with change in ATB for recurrent UTI
[2018-07-05] MEDS: LORazepam 0.5 MG Tab PO PRN (21:59)
[2018-07-06] MEDS: Pantoprazole 40 MG Tab.CR PO SCH (08:25)
[2018-07-06] MEDS: Sodium Bicarbonate 650 MG Tab PO SCH ×2 (08:25→21:48)
[2018-07-06] MEDS: Aspirin 81 MG Tab.EC PO SCH (08:25)
[2018-07-06] MEDS: Furosemide 20 MG/2 ML VIAL IVPUSH SCH ×2 (08:25→21:47)
[2018-07-06] MEDS: Sertraline 50 MG Tab PO SCH (08:26)
[2018-07-06] MEDS: Loratadine 10 MG Tab PO SCH (08:26)
[2018-07-06] MEDS: Enoxaparin 100 MG/1 ML Syringe SUBCUT SCH (08:26)
[2018-07-06] MEDS: predniSONE 20 MG Tab PO SCH (08:26)
[2018-07-06] MEDS: Rosuvastatin 10 MG Tab PO SCH (08:26)
[2018-07-06] MEDS: Gabapentin 100 MG Cap PO SCH (08:26)
[2018-07-06] MEDS: Insulin Glargine,Human Rec. Analog 100 Units/ML 3 ML Pen SUBCUT SCH (08:28)
[2018-07-06] MEDS: Insulin Lispro 100 Unit/ML 3 ML KwikPen SUBCUT SCH ×5 (08:28→21:52)
[2018-07-06] MEDS: Mycophenolate Mofetil 250 MG Cap PO SCH ×2 (08:29→21:48)
[2018-07-06] MEDS: Tacrolimus 1 MG Cap PO SCH ×2 (08:29→21:48)
[2018-07-06] MEDS: Meropenem 1 GM in Sodium Chloride 0.9% 100 ML IV SCH ×2 (08:50→16:52)
--- NOTE | 2018-07-06 13:55 | PCM.PN ---
- General Info Date of Service: 07/06/18 Functional Status: Reports: Tolerating Diet, Ambulating, Urinating - Review of Systems General: Reports: Weakness HEENT: Reports: No Symptoms Pulmonary: Reports: No Symptoms Cardiovascular: Reports: No Symptoms Gastrointestinal: Reports: No Symptoms Genitourinary: Reports: No Symptoms Musculoskeletal: Reports: No Symptoms Skin: Reports: No Symptoms Neurological: Reports: No Symptoms Psychiatric: Reports: No Symptoms - Patient Data Vitals - Most Recent: Last Vital Signs Temp 36.7 C 07/06/18 08:09 Pulse 59 L 07/06/18 08:09 Resp 18 07/06/18 08:09 BP 125/46 L 07/06/18 08:09 Pulse Ox 96 07/06/18 08:09 Weight - Most Recent: 90.492 kg I&O - Last 24 Hours: Intake & Output 07/05/18 07/06/18 07/06/18 22:59 06:59 14:59 Intake Total 720 600 320 Balance 720 600 320 Lab Results Last 24 Hours: Laboratory Results - last 24 hr 07/05/18 07/05/18 07/06/18 Range/Units 17:05 20:19 06:15 WBC 2.71 L (3.98-10.04) K/mm3 RBC 3.66 L (3.98-5.22) M/mm3 Hgb 9.9 L (11.2-15.7) gm/L Hct 34.1 (34.1-44.9) % MCV 93.2 (79.4-94.8) fl MCH 27.0 (25.6-32.2) pg MCHC 29.0 L (32.2-35.5) g/dl RDW Std Deviation 49.9 H (36.4-46.3) fL Plt Count 189 (182-369) K/mm3 MPV 10.6 (9.4-12.3) fl Neut % (Auto) 73.8 H (34.0-71.1) % Lymph % (Auto) 12.5 L (19.3-51.7) % [place] % (Auto) 11.4 (4.7-12.5) % Eos % (Auto) 0.4 L (0.7-5.8) Baso % (Auto) 0.4 (0.1-1.2) % Neut # (Auto) 2.00 (1.56-6.13) K/mm3 Lymph # (Auto) 0.34 L (1.18-3.74) K/mm3 [place] # (Auto) 0.31 (0.24-0.36) K/mm3 Eos # (Auto) 0.01 L (0.04-0.36) K/mm3 Baso # (Auto) 0.01 (0.01-0.08) K/mm3 Manual Slide Review Abnormal smear Sodium (136-145) mEq/L Potassium (3.5-5.1) mEq/L Chloride (98-107) mEq/L Carbon Dioxide (21-32) mEq/L Anion Gap (5-15) BUN (7-18) mg/dL Creatinine (0.55-1.02) mg/dL Est Cr Clr Drug Dosing mL/min Estimated GFR (MDRD) (>60) mL/min BUN/Creatinine Ratio (14-18) Glucose (80-115) mg/dL POC Glucose 368 H 365 H (80-115) mg/dL Calcium (8.5-10.1) mg/dL Magnesium (1.8-2.4) mg/dl C-Reactive Protein (<1.0) mg/dL 07/06/18 Range/Units 06:15 WBC (3.98-10.04) K/mm3 RBC (3.98-5.22) M/mm3 Hgb (11.2-15.7) gm/L Hct (34.1-44.9) % MCV (79.4-94.8) fl MCH (25.6-32.2) pg MCHC (32.2-35.5) g/dl RDW Std Deviation (36.4-46.3) fL Plt Count (182-369) K/mm3 MPV (9.4-12.3) fl Neut % (Auto) (34.0-71.1) % Lymph % (Auto) (19.3-51.7) % [place] % (Auto) (4.7-12.5) % Eos % (Auto) (0.7-5.8) Baso % (Auto) (0.1-1.2) % Neut # (Auto) (1.56-6.13) K/mm3 Lymph # (Auto) (1.18-3.74) K/mm3 [place] # (Auto) (0.24-0.36) K/mm3 Eos # (Auto) (0.04-0.36) K/mm3 Baso # (Auto) (0.01-0.08) K/mm3 Manual Slide Review Sodium 144 (136-145) mEq/L Potassium 4.0 (3.5-5.1) mEq/L Chloride 110 H (98-107) mEq/L Carbon Dioxide 23 (21-32) mEq/L Anion Gap 15.0 (5-15) BUN 43 H (7-18) mg/dL Creatinine 1.6 H (0.55-1.02) mg/dL Est Cr Clr Drug Dosing 27.45 mL/min Estimated GFR (MDRD) 32 (>60) mL/min BUN/Creatinine Ratio 26.9 H (14-18) Glucose 222 H (80-115) mg/dL POC Glucose (80-115) mg/dL Calcium 7.9 L (8.5-10.1) mg/dL Magnesium 2.1 (1.8-2.4) mg/dl C-Reactive Protein 2.9 H* (<1.0) mg/dL Pk Results Last 24 Hours: Microbiology 07/05/18 10:45 Aerobic Blood Culture - Preliminary Blood - Venous - Lab Draw NO GROWTH AFTER 1 DAY Anaerobic Blood Culture - Final 07/05/18 10:00 Aerobic Blood Culture - Preliminary Blood - Venous NO GROWTH AFTER 1 DAY Anaerobic Blood Culture - Preliminary NO GROWTH AFTER 1 DAY 07/01/18 21:37 Urine Culture - Final Urine, Catheterized (Esbl) Escherichia Coli 07/01/18 21:10 Aerobic Blood Culture - Final Blood - Venous (Esbl) Escherichia Coli Anaerobic Blood Culture - Final (Esbl) Escherichia Coli Med Orders - Current: Current Medications Acetaminophen (Tylenol) 650 mg PO Q6HR PRN PRN Reason: Pain Last Admin: 07/03/18 18:15 Dose: 650 mg Albuterol/Ipratropium (Duoneb 3.0-0.5 Mg/3 Ml) 3 ml NEB Q6HRRT PRN PRN Reason: Shortness of Breath Aspirin (Halfprin) 81 mg PO DAILY [facility] Last Admin: 07/06/18 08:25 Dose: 81 mg Docusate Sodium (Colace) 200 mg PO DAILY PRN PRN Reason: Constipation Enoxaparin Sodium (Lovenox) 90 mg SUBCUT DAILY [facility] Last Admin: 07/06/18 08:26 Dose: 90 mg Flunisolide (Nasalide Nasal [place]) 0 ml NASBOTH Q12H PRN PRN Reason: Rhinitis Furosemide (Lasix) 20 mg IVPUSH BID [facility] Last Admin: 07/06/18 08:25 Dose: 20 mg Gabapentin (Neurontin) 100 mg PO DAILY [facility] Last Admin: 07/06/18 08:26 Dose: 100 mg Meropenem 1 gm/ Sodium (Chloride) 100 mls @ 33.333 mls/hr IV Q8H [facility] Last Admin: 07/06/18 08:50 Dose: 33.333 mls/hr Insulin Glargine (Lantus Solostar) 14 units SUBCUT DAILY [facility] Last Admin: 07/06/18 08:28 Dose: 14 units Insulin Human Lispro (Humalog) 0 unit SUBCUT QIDACANDBED [facility]; Protocol Last Admin: 07/06/18 13:07 Dose: 2 unit Loratadine (Claritin) 10 mg PO DAILY [facility] Last Admin: 07/06/18 08:26 Dose: 10 mg Lorazepam (Ativan) 0.5 mg PO Q8H PRN PRN Reason: Anxiety Last Admin: 07/05/18 21:59 Dose: 0.5 mg Mycophenolate Mofetil (Cellcept) 500 mg PO BID [facility] Last Admin: 07/06/18 08:29 Dose: 500 mg Pantoprazole Sodium (Protonix) 40 mg PO DAILY [facility] Last Admin: 07/06/18 08:25 Dose: 40 mg Prednisone (Prednisone) 40 mg PO DAILY [facility] Stop: 07/07/18 09:01 Last Admin: 07/06/18 08:26 Dose: 40 mg Prednisone (Prednisone) 30 mg PO DAILY [facility] Stop: 07/10/18 09:01 Prednisone (Prednisone) 20 mg PO DAILY [facility] Stop: 07/13/18 09:01 Prednisone (Prednisone) 10 mg PO DAILY [facility] Stop: 07/16/18 09:01 Rosuvastatin Calcium (Crestor) 10 mg PO DAILY [facility] Last Admin: 07/06/18 08:26 Dose: 10 mg Sertraline HCl (Zoloft) 150 mg PO DAILY [facility] Last Admin: 07/06/18 08:26 Dose: 150 mg Sodium Bicarbonate (Sodium Bicarbonate) 1,300 mg PO BID [facility] Last Admin: 07/06/18 08:25 Dose: 1,300 mg Tacrolimus (Prograf) 2 mg PO BID [facility] Last Admin: 07/06/18 08:29 Dose: 2 mg Discontinued Medications Enoxaparin Sodium (Lovenox) 95 mg SUBCUT ONETIME STA Stop: 07/01/18 22:29 Last Admin: 07/01/18 22:42 Dose: 95 mg Enoxaparin Sodium (Lovenox) 30 mg SUBCUT Q24H [facility] Flunisolide (Nasalide Nasal [place]) 0 ml NASBOTH DAILY PRN PRN Reason: Rhinitis Furosemide (Lasix) 40 mg IVPUSH NOW ONE Stop: 07/01/18 21:03 Last Admin: 07/01/18 21:39 Dose: 40 mg Furosemide (Lasix) 20 mg IV ONETIME ONE Stop: 07/03/18 16:16 Last Admin: 07/03/18 16:59 Dose: 20 mg Ceftriaxone Sodium 2 gm/ (Sodium Chloride) 100 mls @ 100 mls/hr IV ONETIME ONE Stop: 07/02/18 02:16 Last Admin: 07/02/18 02:37 Dose: 100 mls/hr Azithromycin 500 mg/ Sodium (Chloride) 250 mls @ 250 mls/hr IV ONETIME ONE Stop: 07/02/18 03:29 Last Admin: 07/02/18 03:09 Dose: 250 mls/hr Ceftriaxone Sodium 2 gm/ (Sodium Chloride) 100 mls @ 100 mls/hr IV Q24H [facility] Levofloxacin/Dextrose 750 mg/ (Premix) 150 mls @ 100 mls/hr IV Q48H [facility] Last Admin: 07/02/18 14:08 Dose: 100 mls/hr Insulin Human Regular (Humulin R) 8 unit SUBCUT ONETIME STA Stop: 07/01/18 22:44 Last Admin: 07/01/18 22:56 Dose: 8 units Methylprednisolone Sodium Succinate (Solu-Medrol) 40 mg IVPUSH DAILY [facility] Last Admin: 07/05/18 10:36 Dose: Not Given Tacrolimus 0.5 Mg (Capsules) 0 each PO DAILY [facility] Last Admin: 07/03/18 13:00 Dose: 3 each Tacrolimus 0.5 Mg (Capsules) 0 each PO QPM [facility] Tacrolimus 0.5 Mg (Capsules) 0 each PO BID [facility] Tacrolimus 0.5 Mg (Capsules) 0 each PO DAILY [facility] Trimethoprim/Sulfamethoxazole (Septra Ds) 1 tab PO ONETIME ONE Stop: 07/01/18 23:15 Last Admin: 07/01/18 23:18 Dose: 1 tab Trimethoprim/Sulfamethoxazole (Septra Ds) tab PO MOWEFR [facility] - Exam Quality Assessment: DVT Prophylaxis General: Alert, Oriented, Cooperative, No Acute Distress HEENT: Pupils Equal, Pupils Reactive, EOMI Neck: Trachea Midline, No JVD Lungs: Normal Respiratory Effort Cardiovascular: Regular Rate, Regular Rhythm GI/Abdominal Exam: Normal Bowel Sounds, Soft, Non-Tender, No Organomegaly, No Distention (Female) Exam: Deferred Back Exam: Normal Inspection Extremities: Normal Inspection, Non-Tender, Normal Capillary Refill Skin: Warm Neurological: No New Focal Deficit, Normal Speech Psy/Mental Status: Alert, Normal Affect, Normal Mood - Problem List & Annotations (1) Renal transplant, status post SNOMED Code(s): 207036109, 15822995, 596661061 Code(s): Z94.0 - KIDNEY TRANSPLANT STATUS Status: Acute Current Visit: Yes (2) Immunosuppressed status SNOMED Code(s): 04845122 Code(s): D89.9 - DISORDER INVOLVING THE IMMUNE MECHANISM, UNSPECIFIED Status: Acute Current Visit: Yes (3) Chronic kidney disease SNOMED Code(s): 799898277 Code(s): N18.9 - CHRONIC KIDNEY DISEASE, UNSPECIFIED Status: Acute Current Visit: Yes (4) Elevated d-dimer SNOMED Code(s): 193477657 Code(s): R79.89 - OTHER SPECIFIED ABNORMAL FINDINGS OF BLOOD CHEMISTRY Status: Acute Current Visit: Yes (5) Hyperglycemia due to type 2 diabetes mellitus SNOMED Code(s): 196853147801156, 109586652770143 Code(s): E11.65 - TYPE 2 DIABETES MELLITUS WITH HYPERGLYCEMIA Status: Acute Current Visit: Yes (6) UTI (urinary tract infection) SNOMED Code(s): 11425672 Code(s): N39.0 - URINARY TRACT INFECTION, SITE NOT SPECIFIED Status: Acute Current Visit: Yes (7) D-dimer, elevated SNOMED Code(s): 435327935 Code(s): R79.89 - OTHER SPECIFIED ABNORMAL FINDINGS OF BLOOD CHEMISTRY Status: Acute Current Visit: Yes - Problem List Review Problem List Initiated/Reviewed/Updated: Yes - My Orders Last 24 Hours: My Active Orders 07/08/18 09:00 predniSONE 30 mg PO DAILY 07/11/18 09:00 predniSONE 20 mg PO DAILY 07/14/18 09:00 predniSONE 10 mg PO DAILY - Plan Plan:: Impression: Pulmonary congestion-->resolved Elevated D dimer-->normal perfusion study, negative Venous doppler Acute respiratory distress on BiPAP-->resolved, had BIPAP<24 hours on admission Hypoxia---resolved AUTI with history of recurrence, UC/BC; called by micro will stop Levoquin, Continue Meropenem for E COLI ESBL; BCs are negative ~48 hours--->DC Sat or Saturday S/P renal transplant on anti rejection agents Chronic HLD CRI Anxiety Depression Diabetes Mellitus type 2 Obesity, BMI 36.6 Plan: IVF Repeat BCs after 48 hours of current ATB therapy Diurese as needed Accurate I/Os Levoquin IV Resp isolation--DCd DVT/GI prophylaxis Consult PT/OT LOS>96 hours with change in ATB for recurrent UTI
[2018-07-06] MEDS: LORazepam 0.5 MG Tab PO PRN (21:48)
[2018-07-07] MEDS: Meropenem 1 GM in Sodium Chloride 0.9% 100 ML IV SCH ×4 (00:13→23:22)
[2018-07-07] MEDS: Sodium Bicarbonate 650 MG Tab PO SCH ×2 (08:04→22:05)
[2018-07-07] MEDS: Aspirin 81 MG Tab.EC PO SCH (08:04)
[2018-07-07] MEDS: Furosemide 20 MG/2 ML VIAL IVPUSH SCH ×2 (08:04→22:05)
[2018-07-07] MEDS: Sertraline 50 MG Tab PO SCH (08:05)
[2018-07-07] MEDS: Gabapentin 100 MG Cap PO SCH (08:05)
[2018-07-07] MEDS: Pantoprazole 40 MG Tab.CR PO SCH (08:05)
[2018-07-07] MEDS: Enoxaparin 100 MG/1 ML Syringe SUBCUT SCH (08:05)
[2018-07-07] MEDS: predniSONE 20 MG Tab PO SCH (08:05)
[2018-07-07] MEDS: Rosuvastatin 10 MG Tab PO SCH (08:05)
[2018-07-07] MEDS: Loratadine 10 MG Tab PO SCH (08:05)
[2018-07-07] MEDS: Insulin Lispro 100 Unit/ML 3 ML KwikPen SUBCUT SCH ×5 (08:06→23:18)
[2018-07-07] MEDS: Insulin Glargine,Human Rec. Analog 100 Units/ML 3 ML Pen SUBCUT SCH (08:06)
[2018-07-07] MEDS: Mycophenolate Mofetil 250 MG Cap PO SCH ×2 (08:07→22:05)
[2018-07-07] MEDS: Tacrolimus 1 MG Cap PO SCH ×2 (08:08→22:05)
--- NOTE | 2018-07-07 10:58 | PCM.PN ---
- General Info Date of Service: 07/07/18 Admission Dx/Problem (Free Text): Admission Diagnosis/Problem Admission Diagnosis/Problem Pulmonary edema Subjective Update: In to see Cherelle. She is lying in bed. We discussed her plan of care and what results we have. She asked a few questions and we discussed them. All questions were answered. No nursing or patient concerns. Likely discharge 07/09/18 due to need for more IV antibiotics. Functional Status: Reports: Pain Controlled, Tolerating Diet, Ambulating, Urinating. Denies: New Symptoms - Review of Systems General: Reports: No Symptoms, Weakness. Denies: Fever, Fatigue HEENT: Reports: No Symptoms Pulmonary: Reports: No Symptoms. Denies: Shortness of Breath, Cough, Sputum Cardiovascular: Reports: No Symptoms. Denies: Chest Pain, Palpitations, Edema Gastrointestinal: Reports: No Symptoms. Denies: Abdominal Pain, Constipation, Diarrhea, Nausea, Vomiting Genitourinary: Reports: No Symptoms Musculoskeletal: Reports: No Symptoms Skin: Reports: No Symptoms Neurological: Reports: No Symptoms Psychiatric: Reports: No Symptoms - Patient Data Vitals - Most Recent: Last Vital Signs Temp 97.5 F 07/07/18 08:03 Pulse 67 07/07/18 08:03 Resp 16 07/07/18 08:03 BP 123/96 H 07/07/18 08:03 Pulse Ox 98 07/07/18 08:03 Weight - Most Recent: 199 lb 9 oz I&O - Last 24 Hours: Intake & Output 07/06/18 07/07/18 07/07/18 22:59 06:59 14:59 Intake Total 990 400 300 Output Total 950 Balance 990 -550 300 Lab Results Last 24 Hours: Laboratory Results - last 24 hr 07/06/18 07/06/18 07/06/18 Range/Units 05:38 11:13 17:08 WBC (3.98-10.04) K/mm3 RBC (3.98-5.22) M/mm3 Hgb (11.2-15.7) gm/L Hct (34.1-44.9) % MCV (79.4-94.8) fl MCH (25.6-32.2) pg MCHC (32.2-35.5) g/dl RDW Std Deviation (36.4-46.3) fL Plt Count (182-369) K/mm3 MPV (9.4-12.3) fl Neut % (Auto) (34.0-71.1) % Lymph % (Auto) (19.3-51.7) % [place] % (Auto) (4.7-12.5) % Eos % (Auto) (0.7-5.8) Baso % (Auto) (0.1-1.2) % Neut # (Auto) (1.56-6.13) K/mm3 Lymph # (Auto) (1.18-3.74) K/mm3 [place] # (Auto) (0.24-0.36) K/mm3 Eos # (Auto) (0.04-0.36) K/mm3 Baso # (Auto) (0.01-0.08) K/mm3 Manual Slide Review Sodium (136-145) mEq/L Potassium (3.5-5.1) mEq/L Chloride (98-107) mEq/L Carbon Dioxide (21-32) mEq/L Anion Gap (5-15) BUN (7-18) mg/dL Creatinine (0.55-1.02) mg/dL Est Cr Clr Drug Dosing mL/min Estimated GFR (MDRD) (>60) mL/min BUN/Creatinine Ratio (14-18) Glucose 394 H (80-115) mg/dL POC Glucose 226 H 244 H (80-115) mg/dL Calcium (8.5-10.1) mg/dL Magnesium (1.8-2.4) mg/dl C-Reactive Protein (<1.0) mg/dL 07/06/18 07/07/18 07/07/18 Range/Units 21:51 06:20 07:10 WBC 3.26 L (3.98-10.04) K/mm3 RBC 3.89 L (3.98-5.22) M/mm3 Hgb 10.6 L (11.2-15.7) gm/L Hct 36.3 (34.1-44.9) % MCV 93.3 (79.4-94.8) fl MCH 27.2 (25.6-32.2) pg MCHC 29.2 L (32.2-35.5) g/dl RDW Std Deviation 49.0 H (36.4-46.3) fL Plt Count 207 (182-369) K/mm3 MPV 10.1 (9.4-12.3) fl Neut % (Auto) 67.2 (34.0-71.1) % Lymph % (Auto) 16.3 L (19.3-51.7) % [place] % (Auto) 12.9 H (4.7-12.5) % Eos % (Auto) 1.5 (0.7-5.8) Baso % (Auto) 0.3 (0.1-1.2) % Neut # (Auto) 2.19 (1.56-6.13) K/mm3 Lymph # (Auto) 0.53 L (1.18-3.74) K/mm3 [place] # (Auto) 0.42 H (0.24-0.36) K/mm3 Eos # (Auto) 0.05 (0.04-0.36) K/mm3 Baso # (Auto) 0.01 (0.01-0.08) K/mm3 Manual Slide Review Abnormal smear Sodium (136-145) mEq/L Potassium (3.5-5.1) mEq/L Chloride (98-107) mEq/L Carbon Dioxide (21-32) mEq/L Anion Gap (5-15) BUN (7-18) mg/dL Creatinine (0.55-1.02) mg/dL Est Cr Clr Drug Dosing mL/min Estimated GFR (MDRD) (>60) mL/min BUN/Creatinine Ratio (14-18) Glucose (80-115) mg/dL POC Glucose 380 H 168 H (80-115) mg/dL Calcium (8.5-10.1) mg/dL Magnesium (1.8-2.4) mg/dl C-Reactive Protein (<1.0) mg/dL 07/07/18 Range/Units 07:10 WBC (3.98-10.04) K/mm3 RBC (3.98-5.22) M/mm3 Hgb (11.2-15.7) gm/L Hct (34.1-44.9) % MCV (79.4-94.8) fl MCH (25.6-32.2) pg MCHC (32.2-35.5) g/dl RDW Std Deviation (36.4-46.3) fL Plt Count (182-369) K/mm3 MPV (9.4-12.3) fl Neut % (Auto) (34.0-71.1) % Lymph % (Auto) (19.3-51.7) % [place] % (Auto) (4.7-12.5) % Eos % (Auto) (0.7-5.8) Baso % (Auto) (0.1-1.2) % Neut # (Auto) (1.56-6.13) K/mm3 Lymph # (Auto) (1.18-3.74) K/mm3 [place] # (Auto) (0.24-0.36) K/mm3 Eos # (Auto) (0.04-0.36) K/mm3 Baso # (Auto) (0.01-0.08) K/mm3 Manual Slide Review Sodium 145 (136-145) mEq/L Potassium 4.3 (3.5-5.1) mEq/L Chloride 110 H (98-107) mEq/L Carbon Dioxide 23 (21-32) mEq/L Anion Gap 16.3 H (5-15) BUN 44 H (7-18) mg/dL Creatinine 1.7 H (0.55-1.02) mg/dL Est Cr Clr Drug Dosing 25.84 mL/min Estimated GFR (MDRD) 30 (>60) mL/min BUN/Creatinine Ratio 25.9 H (14-18) Glucose 165 H (80-115) mg/dL POC Glucose (80-115) mg/dL Calcium 8.0 L (8.5-10.1) mg/dL Magnesium 2.2 (1.8-2.4) mg/dl C-Reactive Protein 1.6 H* (<1.0) mg/dL Kp Results Last 24 Hours: Microbiology 07/05/18 10:45 Aerobic Blood Culture - Preliminary Blood - Venous - Lab Draw NO GROWTH AFTER 2 DAYS Anaerobic Blood Culture - Final 07/05/18 10:00 Aerobic Blood Culture - Preliminary Blood - Venous NO GROWTH AFTER 2 DAYS Anaerobic Blood Culture - Preliminary NO GROWTH AFTER 2 DAYS Med Orders - Current: Current Medications Acetaminophen (Tylenol) 650 mg PO Q6HR PRN PRN Reason: Pain Last Admin: 07/03/18 18:15 Dose: 650 mg Albuterol/Ipratropium (Duoneb 3.0-0.5 Mg/3 Ml) 3 ml NEB Q6HRRT PRN PRN Reason: Shortness of Breath Aspirin (Halfprin) 81 mg PO DAILY [facility] Last Admin: 07/07/18 08:04 Dose: 81 mg Docusate Sodium (Colace) 200 mg PO DAILY PRN PRN Reason: Constipation Enoxaparin Sodium (Lovenox) 90 mg SUBCUT DAILY [facility] Last Admin: 07/07/18 08:05 Dose: 90 mg Flunisolide (Nasalide Nasal [place]) 0 ml NASBOTH Q12H PRN PRN Reason: Rhinitis Furosemide (Lasix) 20 mg IVPUSH BID [facility] Last Admin: 07/07/18 08:04 Dose: 20 mg Gabapentin (Neurontin) 100 mg PO DAILY [facility] Last Admin: 07/07/18 08:05 Dose: 100 mg Meropenem 1 gm/ Sodium (Chloride) 100 mls @ 33.333 mls/hr IV Q8H [facility] Last Admin: 07/07/18 08:22 Dose: 33.333 mls/hr Insulin Glargine (Lantus Solostar) 14 units SUBCUT DAILY [facility] Last Admin: 07/07/18 08:06 Dose: 14 units Insulin Human Lispro (Humalog) 0 unit SUBCUT QIDACANDBED [facility]; Protocol Last Admin: 07/07/18 08:06 Dose: 2 units Loratadine (Claritin) 10 mg PO DAILY [facility] Last Admin: 07/07/18 08:05 Dose: 10 mg Lorazepam (Ativan) 0.5 mg PO Q8H PRN PRN Reason: Anxiety Last Admin: 07/06/18 21:48 Dose: 0.5 mg Mycophenolate Mofetil (Cellcept) 500 mg PO BID [facility] Last Admin: 07/07/18 08:07 Dose: 500 mg Pantoprazole Sodium (Protonix) 40 mg PO DAILY [facility] Last Admin: 07/07/18 08:05 Dose: 40 mg Prednisone (Prednisone) 30 mg PO DAILY [facility] Stop: 07/10/18 09:01 Prednisone (Prednisone) 20 mg PO DAILY [facility] Stop: 07/13/18 09:01 Prednisone (Prednisone) 10 mg PO DAILY [facility] Stop: 07/16/18 09:01 Rosuvastatin Calcium (Crestor) 10 mg PO DAILY [facility] Last Admin: 07/07/18 08:05 Dose: 10 mg Sertraline HCl (Zoloft) 150 mg PO DAILY [facility] Last Admin: 07/07/18 08:05 Dose: 150 mg Sodium Bicarbonate (Sodium Bicarbonate) 1,300 mg PO BID [facility] Last Admin: 07/07/18 08:04 Dose: 1,300 mg Tacrolimus (Prograf) 2 mg PO BID [facility] Last Admin: 07/07/18 08:08 Dose: 2 mg Discontinued Medications Enoxaparin Sodium (Lovenox) 95 mg SUBCUT ONETIME STA Stop: 07/01/18 22:29 Last Admin: 07/01/18 22:42 Dose: 95 mg Enoxaparin Sodium (Lovenox) 30 mg SUBCUT Q24H [facility] Last Admin: 07/07/18 00:03 Dose: Not Given Flunisolide (Nasalide Nasal [place]) 0 ml NASBOTH DAILY PRN PRN Reason: Rhinitis Furosemide (Lasix) 40 mg IVPUSH NOW ONE Stop: 07/01/18 21:03 Last Admin: 07/01/18 21:39 Dose: 40 mg Furosemide (Lasix) 20 mg IV ONETIME ONE Stop: 07/03/18 16:16 Last Admin: 07/03/18 16:59 Dose: 20 mg Ceftriaxone Sodium 2 gm/ (Sodium Chloride) 100 mls @ 100 mls/hr IV ONETIME ONE Stop: 07/02/18 02:16 Last Admin: 07/02/18 02:37 Dose: 100 mls/hr Azithromycin 500 mg/ Sodium (Chloride) 250 mls @ 250 mls/hr IV ONETIME ONE Stop: 07/02/18 03:29 Last Admin: 07/02/18 03:09 Dose: 250 mls/hr Ceftriaxone Sodium 2 gm/ (Sodium Chloride) 100 mls @ 100 mls/hr IV Q24H [facility] Levofloxacin/Dextrose 750 mg/ (Premix) 150 mls @ 100 mls/hr IV Q48H [facility] Last Admin: 07/02/18 14:08 Dose: 100 mls/hr Insulin Human Lispro (Humalog) 0 unit SUBCUT QIDACANDBED [facility]; Protocol Last Admin: 07/06/18 17:51 Dose: Not Given Insulin Human Regular (Humulin R) 8 unit SUBCUT ONETIME STA Stop: 07/01/18 22:44 Last Admin: 07/01/18 22:56 Dose: 8 units Methylprednisolone Sodium Succinate (Solu-Medrol) 40 mg IVPUSH DAILY [facility] Last Admin: 07/05/18 10:36 Dose: Not Given Tacrolimus 0.5 Mg (Capsules) 0 each PO DAILY [facility] Last Admin: 07/03/18 13:00 Dose: 3 each Tacrolimus 0.5 Mg (Capsules) 0 each PO QPM [facility] Tacrolimus 0.5 Mg (Capsules) 0 each PO BID [facility] Tacrolimus 0.5 Mg (Capsules) 0 each PO DAILY [facility] Prednisone (Prednisone) 40 mg PO DAILY [facility] Stop: 07/07/18 09:01 Last Admin: 07/07/18 08:05 Dose: 40 mg Trimethoprim/Sulfamethoxazole (Septra Ds) 1 tab PO ONETIME ONE Stop: 07/01/18 23:15 Last Admin: 07/01/18 23:18 Dose: 1 tab Trimethoprim/Sulfamethoxazole (Septra Ds) tab PO MOWEFR [facility] - Exam Quality Assessment: DVT Prophylaxis General: Alert, Oriented, Cooperative, No Acute Distress HEENT: Pupils Equal, Pupils Reactive, EOMI, Mucous Membr. Moist/[place] Neck: Supple Lungs: Clear to Auscultation, Normal Respiratory Effort Cardiovascular: Regular Rate, Regular Rhythm GI/Abdominal Exam: Normal Bowel Sounds, Soft, Non-Tender, No Distention (Female) Exam: Deferred Back Exam: Normal Inspection, Full Range of Motion Extremities: Normal Inspection, Normal Range of Motion, Non-Tender, No Pedal Edema, Normal Capillary Refill Peripheral Pulses: 2+: Radial (L), Radial (R), Posterior Tibial (L), Posterior Tibial (R), Dorsalis Pedis (L), Dorsalis Pedis (R) Skin: Warm, Dry, Intact Neurological: No New Focal Deficit Psy/Mental Status: Alert, Normal Affect, Normal Mood - Problem List & Annotations (1) Chronic kidney disease SNOMED Code(s): 149769666 Code(s): N18.9 - CHRONIC KIDNEY DISEASE, UNSPECIFIED Status: Chronic Priority: High Current Visit: Yes (2) D-dimer, elevated SNOMED Code(s): 724477621 Code(s): R79.89 - OTHER SPECIFIED ABNORMAL FINDINGS OF BLOOD CHEMISTRY Status: Acute Priority: High Current Visit: Yes (3) Bacteremia SNOMED Code(s): 9389388 Code(s): R78.81 - BACTEREMIA Status: Acute Priority: High Current Visit : Yes (4) Hyperglycemia due to type 2 diabetes mellitus SNOMED Code(s): 038358787150257, 420470396124461 Code(s): E11.65 - TYPE 2 DIABETES MELLITUS WITH HYPERGLYCEMIA Status: Acute Priority: High Current Visit: Yes Qualifiers: Diabetes mellitus shelter insulin use: unspecified shelter insulin use status Qualified Code(s): E11.65 - Type 2 diabetes mellitus with hyperglycemia (5) Immunosuppressed status SNOMED Code(s): 12035300 Code(s): D89.9 - DISORDER INVOLVING THE IMMUNE MECHANISM, UNSPECIFIED Status: Chronic Priority: High Current Visit: Yes (6) Renal transplant, status post SNOMED Code(s): 777494347, 06823098, 890389318 Code(s): Z94.0 - KIDNEY TRANSPLANT STATUS Status: Chronic Priority: High Current Visit: Yes (7) UTI (urinary tract infection) SNOMED Code(s): 94777082 Code(s): N39.0 - URINARY TRACT INFECTION, SITE NOT SPECIFIED Status: Acute Priority: High Current Visit: Yes Qualifiers: Urinary tract infection type: site unspecified Hematuria presence: without hematuria Qualified Code(s): N39.0 - Urinary tract infection, site not specified - Problem List Review Problem List Initiated/Reviewed/Updated: Yes - Plan Plan:: Impression: Pulmonary congestion-->resolved Elevated D dimer-->normal perfusion study, negative Venous doppler Acute respiratory distress on BiPAP-->resolved, had BIPAP<24 hours on admission Hypoxia---resolved AUTI with history of recurrence, UC/BC; called by micro will stop Levoquin, Continue Meropenem for E COLI ESBL; Repeat BCs are negative ~48 hours--->DC Saturday S/P renal transplant on anti rejection agents Chronic HLD CRI Anxiety Depression Diabetes Mellitus type 2 Obesity, BMI 36.6 Plan: IVF Repeat BCs after 48 hours of current ATB therapy Diurese as needed Accurate I/Os Levoquin IV-> switch meropenem Resp isolation--DCd Slow steroid taper. DVT/GI prophylaxis Consult PT/OT LOS>96 hours with change in ATB for recurrent UTI, Need for continued IV antibiotic Discussed case with pharmacy. They are recommending 2 more days IV Meropenem due to ESBL. Probable discharge 07/09/18
[2018-07-07] MEDS: LORazepam 0.5 MG Tab PO PRN (22:04)
--- NOTE | 2018-07-08 06:37 | PCM.PN ---
- General Info Date of Service: 07/08/18 Admission Dx/Problem (Free Text): Admission Diagnosis/Problem Admission Diagnosis/Problem Pulmonary edema Subjective Update: In to see Cherelle. She is lying in bed. She has a mild headache and is requesting Tylenol. She also has some mild back pain from lying in bed so much. She has no other complaints. Shades were closed and light was turned off at patient request. She has no other complaints. Labs look good. Creatinine is 1.3. CRP is back WNL. Likely discharge tomorrow after completion of IV antibiotic therapy. Functional Status: Reports: Pain Controlled, Tolerating Diet, Ambulating, Urinating. Denies: New Symptoms - Review of Systems General: Reports: Weakness (improving ). Denies: Fever, Fatigue, Malaise HEENT: Reports: Headaches (mild - tylenol will be given) Pulmonary: Reports: No Symptoms. Denies: Shortness of Breath, Cough, Sputum, Wheezing Cardiovascular: Reports: No Symptoms. Denies: Chest Pain, Palpitations Gastrointestinal: Reports: No Symptoms. Denies: Abdominal Pain, Constipation, Diarrhea, Nausea, Vomiting Genitourinary: Reports: No Symptoms Musculoskeletal: Reports: Back Pain (mild ) Skin: Reports: No Symptoms Neurological: Reports: No Symptoms Psychiatric: Reports: No Symptoms - Patient Data Vitals - Most Recent: Last Vital Signs Temp 97.9 F 07/07/18 22:28 Pulse 69 07/07/18 22:28 Resp 18 07/07/18 22:28 BP 129/72 07/07/18 22:28 Pulse Ox 99 07/07/18 22:28 Weight - Most Recent: 199 lb 9 oz I&O - Last 24 Hours: Intake & Output 07/07/18 07/07/18 07/08/18 14:59 22:59 06:59 Intake Total 300 760 450 Output Total 1300 1200 Balance 300 540 -750 Lab Results Last 24 Hours: Laboratory Results - last 24 hr 07/07/18 07/07/18 07/07/18 Range/Units 07:10 07:10 11:16 WBC 3.26 L (3.98-10.04) K/mm3 RBC 3.89 L (3.98-5.22) M/mm3 Hgb 10.6 L (11.2-15.7) gm/L Hct 36.3 (34.1-44.9) % MCV 93.3 (79.4-94.8) fl MCH 27.2 (25.6-32.2) pg MCHC 29.2 L (32.2-35.5) g/dl RDW Std Deviation 49.0 H (36.4-46.3) fL Plt Count 207 (182-369) K/mm3 MPV 10.1 (9.4-12.3) fl Neut % (Auto) 67.2 (34.0-71.1) % Lymph % (Auto) 16.3 L (19.3-51.7) % [place] % (Auto) 12.9 H (4.7-12.5) % Eos % (Auto) 1.5 (0.7-5.8) Baso % (Auto) 0.3 (0.1-1.2) % Neut # (Auto) 2.19 (1.56-6.13) K/mm3 Lymph # (Auto) 0.53 L (1.18-3.74) K/mm3 [place] # (Auto) 0.42 H (0.24-0.36) K/mm3 Eos # (Auto) 0.05 (0.04-0.36) K/mm3 Baso # (Auto) 0.01 (0.01-0.08) K/mm3 Manual Slide Review Abnormal smear Sodium 145 (136-145) mEq/L Potassium 4.3 (3.5-5.1) mEq/L Chloride 110 H (98-107) mEq/L Carbon Dioxide 23 (21-32) mEq/L Anion Gap 16.3 H (5-15) BUN 44 H (7-18) mg/dL Creatinine 1.7 H (0.55-1.02) mg/dL Est Cr Clr Drug Dosing 25.84 mL/min Estimated GFR (MDRD) 30 (>60) mL/min BUN/Creatinine Ratio 25.9 H (14-18) Glucose 165 H (80-115) mg/dL POC Glucose 280 H (80-115) mg/dL Calcium 8.0 L (8.5-10.1) mg/dL Magnesium 2.2 (1.8-2.4) mg/dl C-Reactive Protein 1.6 H* (<1.0) mg/dL 07/07/18 07/07/18 Range/Units 18:03 22:30 WBC (3.98-10.04) K/mm3 RBC (3.98-5.22) M/mm3 Hgb (11.2-15.7) gm/L Hct (34.1-44.9) % MCV (79.4-94.8) fl MCH (25.6-32.2) pg MCHC (32.2-35.5) g/dl RDW Std Deviation (36.4-46.3) fL Plt Count (182-369) K/mm3 MPV (9.4-12.3) fl Neut % (Auto) (34.0-71.1) % Lymph % (Auto) (19.3-51.7) % [place] % (Auto) (4.7-12.5) % Eos % (Auto) (0.7-5.8) Baso % (Auto) (0.1-1.2) % Neut # (Auto) (1.56-6.13) K/mm3 Lymph # (Auto) (1.18-3.74) K/mm3 [place] # (Auto) (0.24-0.36) K/mm3 Eos # (Auto) (0.04-0.36) K/mm3 Baso # (Auto) (0.01-0.08) K/mm3 Manual Slide Review Sodium (136-145) mEq/L Potassium (3.5-5.1) mEq/L Chloride (98-107) mEq/L Carbon Dioxide (21-32) mEq/L Anion Gap (5-15) BUN (7-18) mg/dL Creatinine (0.55-1.02) mg/dL Est Cr Clr Drug Dosing mL/min Estimated GFR (MDRD) (>60) mL/min BUN/Creatinine Ratio (14-18) Glucose 440 H 413 H (80-115) mg/dL POC Glucose (80-115) mg/dL Calcium (8.5-10.1) mg/dL Magnesium (1.8-2.4) mg/dl C-Reactive Protein (<1.0) mg/dL Pk Results Last 24 Hours: Microbiology 07/05/18 10:45 Aerobic Blood Culture - Preliminary Blood - Venous - Lab Draw NO GROWTH AFTER 2 DAYS Anaerobic Blood Culture - Final 07/05/18 10:00 Aerobic Blood Culture - Preliminary Blood - Venous NO GROWTH AFTER 2 DAYS Anaerobic Blood Culture - Preliminary NO GROWTH AFTER 2 DAYS Med Orders - Current: Current Medications Acetaminophen (Tylenol) 650 mg PO Q6HR PRN PRN Reason: Pain Last Admin: 07/03/18 18:15 Dose: 650 mg Albuterol/Ipratropium (Duoneb 3.0-0.5 Mg/3 Ml) 3 ml NEB Q6HRRT PRN PRN Reason: Shortness of Breath Aspirin (Halfprin) 81 mg PO DAILY [facility] Last Admin: 07/07/18 08:04 Dose: 81 mg Docusate Sodium (Colace) 200 mg PO DAILY PRN PRN Reason: Constipation Enoxaparin Sodium (Lovenox) 90 mg SUBCUT DAILY [facility] Last Admin: 07/07/18 08:05 Dose: 90 mg Flunisolide (Nasalide Nasal [place]) 0 ml NASBOTH Q12H PRN PRN Reason: Rhinitis Furosemide (Lasix) 20 mg IVPUSH BID [facility] Last Admin: 07/07/18 22:05 Dose: 20 mg Gabapentin (Neurontin) 100 mg PO DAILY [facility] Last Admin: 07/07/18 08:05 Dose: 100 mg Meropenem 1 gm/ Sodium (Chloride) 100 mls @ 33.333 mls/hr IV Q8H [facility] Last Admin: 07/07/18 23:22 Dose: 33.333 mls/hr Insulin Glargine (Lantus Solostar) 14 units SUBCUT DAILY [facility] Last Admin: 07/07/18 08:06 Dose: 14 units Insulin Human Lispro (Humalog) 0 unit SUBCUT QIDACANDBED [facility]; Protocol Last Admin: 07/07/18 23:18 Dose: 15 units Loratadine (Claritin) 10 mg PO DAILY [facility] Last Admin: 07/07/18 08:05 Dose: 10 mg Lorazepam (Ativan) 0.5 mg PO Q8H PRN PRN Reason: Anxiety Last Admin: 07/07/18 22:04 Dose: 0.5 mg Mycophenolate Mofetil (Cellcept) 500 mg PO BID [facility] Last Admin: 07/07/18 22:05 Dose: 500 mg Pantoprazole Sodium (Protonix) 40 mg PO DAILY [facility] Last Admin: 07/07/18 08:05 Dose: 40 mg Prednisone (Prednisone) 30 mg PO DAILY [facility] Stop: 07/10/18 09:01 Prednisone (Prednisone) 20 mg PO DAILY [facility] Stop: 07/13/18 09:01 Prednisone (Prednisone) 10 mg PO DAILY [facility] Stop: 07/16/18 09:01 Rosuvastatin Calcium (Crestor) 10 mg PO DAILY [facility] Last Admin: 07/07/18 08:05 Dose: 10 mg Sertraline HCl (Zoloft) 150 mg PO DAILY [facility] Last Admin: 07/07/18 08:05 Dose: 150 mg Sodium Bicarbonate (Sodium Bicarbonate) 1,300 mg PO BID [facility] Last Admin: 07/07/18 22:05 Dose: 1,300 mg Tacrolimus (Prograf) 2 mg PO BID [facility] Last Admin: 07/07/18 22:05 Dose: 2 mg Discontinued Medications Enoxaparin Sodium (Lovenox) 95 mg SUBCUT ONETIME STA Stop: 07/01/18 22:29 Last Admin: 07/01/18 22:42 Dose: 95 mg Enoxaparin Sodium (Lovenox) 30 mg SUBCUT Q24H [facility] Last Admin: 07/07/18 00:03 Dose: Not Given Flunisolide (Nasalide Nasal [place]) 0 ml NASBOTH DAILY PRN PRN Reason: Rhinitis Furosemide (Lasix) 40 mg IVPUSH NOW ONE Stop: 07/01/18 21:03 Last Admin: 07/01/18 21:39 Dose: 40 mg Furosemide (Lasix) 20 mg IV ONETIME ONE Stop: 07/03/18 16:16 Last Admin: 07/03/18 16:59 Dose: 20 mg Ceftriaxone Sodium 2 gm/ (Sodium Chloride) 100 mls @ 100 mls/hr IV ONETIME ONE Stop: 07/02/18 02:16 Last Admin: 07/02/18 02:37 Dose: 100 mls/hr Azithromycin 500 mg/ Sodium (Chloride) 250 mls @ 250 mls/hr IV ONETIME ONE Stop: 07/02/18 03:29 Last Admin: 07/02/18 03:09 Dose: 250 mls/hr Ceftriaxone Sodium 2 gm/ (Sodium Chloride) 100 mls @ 100 mls/hr IV Q24H [facility] Levofloxacin/Dextrose 750 mg/ (Premix) 150 mls @ 100 mls/hr IV Q48H [facility] Last Admin: 07/02/18 14:08 Dose: 100 mls/hr Insulin Human Lispro (Humalog) 0 unit SUBCUT QIDACANDBED [facility]; Protocol Last Admin: 07/06/18 17:51 Dose: Not Given Insulin Human Lispro (Humalog) 0 unit SUBCUT QIDACANDBED [facility]; Protocol Last Admin: 07/07/18 18:54 Dose: Not Given Insulin Human Regular (Humulin R) 8 unit SUBCUT ONETIME STA Stop: 07/01/18 22:44 Last Admin: 07/01/18 22:56 Dose: 8 units Methylprednisolone Sodium Succinate (Solu-Medrol) 40 mg IVPUSH DAILY [facility] Last Admin: 07/05/18 10:36 Dose: Not Given Tacrolimus 0.5 Mg (Capsules) 0 each PO DAILY [facility] Last Admin: 07/03/18 13:00 Dose: 3 each Tacrolimus 0.5 Mg (Capsules) 0 each PO QPM [facility] Tacrolimus 0.5 Mg (Capsules) 0 each PO BID [facility] Tacrolimus 0.5 Mg (Capsules) 0 each PO DAILY [facility] Prednisone (Prednisone) 40 mg PO DAILY [facility] Stop: 07/07/18 09:01 Last Admin: 07/07/18 08:05 Dose: 40 mg Trimethoprim/Sulfamethoxazole (Septra Ds) 1 tab PO ONETIME ONE Stop: 07/01/18 23:15 Last Admin: 07/01/18 23:18 Dose: 1 tab Trimethoprim/Sulfamethoxazole (Septra Ds) tab PO MOWEFR [facility] - Exam Quality Assessment: DVT Prophylaxis General: Alert, Oriented, Cooperative, No Acute Distress HEENT: Pupils Equal, Pupils Reactive, EOMI, Mucous Membr. Moist/[place] Neck: Supple, Trachea Midline, No JVD Lungs: Clear to Auscultation, Normal Respiratory Effort Cardiovascular: Regular Rate, Regular Rhythm GI/Abdominal Exam: Normal Bowel Sounds, Soft, Non-Tender, No Distention (Female) Exam: Deferred Back Exam: Normal Inspection, Full Range of Motion Extremities: Normal Inspection, Normal Range of Motion, Non-Tender, No Pedal Edema, Normal Capillary Refill Peripheral Pulses: 2+: Radial (L), Radial (R), Dorsalis Pedis (L), Dorsalis Pedis (R) Skin: Warm, Dry, Intact Neurological: No New Focal Deficit Psy/Mental Status: Alert, Normal Affect, Normal Mood - Problem List & Annotations (1) Chronic kidney disease SNOMED Code(s): 921387045 Code(s): N18.9 - CHRONIC KIDNEY DISEASE, UNSPECIFIED Status: Chronic Priority: High Current Visit: Yes (2) D-dimer, elevated SNOMED Code(s): 714807338 Code(s): R79.89 - OTHER SPECIFIED ABNORMAL FINDINGS OF BLOOD CHEMISTRY Status: Acute Priority: High Current Visit: Yes (3) Bacteremia SNOMED Code(s): 0394813 Code(s): R78.81 - BACTEREMIA Status: Acute Priority: High Current Visit : Yes (4) Hyperglycemia due to type 2 diabetes mellitus SNOMED Code(s): 313673355883339, 446950725215859 Code(s): E11.65 - TYPE 2 DIABETES MELLITUS WITH HYPERGLYCEMIA Status: Acute Priority: High Current Visit: Yes Qualifiers: Diabetes mellitus fdc insulin use: unspecified [employer] insulin use status Qualified Code(s): E11.65 - Type 2 diabetes mellitus with hyperglycemia (5) Immunosuppressed status SNOMED Code(s): 77117761 Code(s): D89.9 - DISORDER INVOLVING THE IMMUNE MECHANISM, UNSPECIFIED Status: Chronic Priority: High Current Visit: Yes (6) Renal transplant, status post SNOMED Code(s): 643612370, 62739103, 411076291 Code(s): Z94.0 - KIDNEY TRANSPLANT STATUS Status: Chronic Priority: High Current Visit: Yes (7) UTI (urinary tract infection) SNOMED Code(s): 34562801 Code(s): N39.0 - URINARY TRACT INFECTION, SITE NOT SPECIFIED Status: Acute Priority: High Current Visit: Yes Qualifiers: Urinary tract infection type: site unspecified Hematuria presence: without hematuria Qualified Code(s): N39.0 - Urinary tract infection, site not specified - Problem List Review Problem List Initiated/Reviewed/Updated: Yes - Plan Plan:: Impression: Pulmonary congestion-->resolved Elevated D dimer-->normal perfusion study, negative Venous doppler Acute respiratory distress on BiPAP-->resolved, had BIPAP<24 hours on admission Hypoxia---resolved AUTI with history of recurrence, UC/BC; called by micro will stop Levaquin, Continue Meropenem for E COLI ESBL; Repeat BCs are negative ~48 hours--->DC Saturday S/P renal transplant on anti rejection agents Chronic HLD CRI Anxiety Depression Diabetes Mellitus type 2 Obesity, BMI 36.6 Plan: IVF Repeat BCs after 48 hours of current ATB therapy Diurese as needed Accurate I/Os Levoquin IV-> switch meropenem Resp isolation--DCd Slow steroid taper. DVT/GI prophylaxis Consult PT/OT LOS>96 hours with change in ATB for recurrent UTI, Need for continued IV antibiotic Discussed case with pharmacy. They are recommending 1 more day IV Meropenem due to ESBL. Probable discharge 07/09/18
[2018-07-08] MEDS: Insulin Lispro 100 Unit/ML 3 ML KwikPen SUBCUT SCH ×4 (06:38→21:23)
[2018-07-08] MEDS: Meropenem 1 GM in Sodium Chloride 0.9% 100 ML IV SCH ×3 (08:25→23:25)
[2018-07-08] MEDS: Furosemide 20 MG/2 ML VIAL IVPUSH SCH ×2 (08:26→20:20)
[2018-07-08] MEDS: predniSONE 10 MG Tab PO SCH (08:27)
[2018-07-08] MEDS: Sodium Bicarbonate 650 MG Tab PO SCH ×2 (08:28→20:20)
[2018-07-08] MEDS: Pantoprazole 40 MG Tab.CR PO SCH (08:28)
[2018-07-08] MEDS: Sertraline 50 MG Tab PO SCH (08:28)
[2018-07-08] MEDS: Rosuvastatin 10 MG Tab PO SCH (08:28)
[2018-07-08] MEDS: Enoxaparin 100 MG/1 ML Syringe SUBCUT SCH (08:28)
[2018-07-08] MEDS: Mycophenolate Mofetil 250 MG Cap PO SCH ×2 (08:29→20:20)
[2018-07-08] MEDS: Aspirin 81 MG Tab.EC PO SCH (08:29)
[2018-07-08] MEDS: Insulin Glargine,Human Rec. Analog 100 Units/ML 3 ML Pen SUBCUT SCH (08:29)
[2018-07-08] MEDS: Tacrolimus 1 MG Cap PO SCH ×2 (08:29→20:20)
[2018-07-08] MEDS: Gabapentin 100 MG Cap PO SCH (08:29)
[2018-07-08] MEDS: Loratadine 10 MG Tab PO SCH (08:29)
[2018-07-08] MEDS: Acetaminophen 325 MG Tab PO PRN (09:25)
[2018-07-08] MEDS: LORazepam 0.5 MG Tab PO PRN (15:57)
--- NOTE | 2018-07-09 06:23 | PCM.DCSUM1 ---
Discharge Summary - Hospital Course HPI Initial Comments: 67 year old female s/p renal transplant with hx of recurrent UTI presents with constitutional symptoms. She admits to fever/chills and malaise. when seen in the ED, she was on BiPAP. The patient was diuresed with Lasix IV with an improvement of her urine output. The ED work suggest an acute infectious process pulmonary and/or genitourinary. Appropriate specimens will be obtained. She will be admitted to the ICU and is a full code. Broad spectrum antibiotic will be given, as well as an increase in steroid for stress dose. Diagnosis: Stroke: No - Discharge Data Discharge Date: 07/09/18 (Admit date: 07/02/18) Discharge Disposition: Home, Self-Care 01 Condition: Good - Discharge Diagnosis/Problem(s) (1) Chronic kidney disease SNOMED Code(s): 116675103 ICD Code: N18.9 - CHRONIC KIDNEY DISEASE, UNSPECIFIED Status: Chronic Priority: High Current Visit: Yes (2) D-dimer, elevated SNOMED Code(s): 724618192 ICD Code: R79.89 - OTHER SPECIFIED ABNORMAL FINDINGS OF BLOOD CHEMISTRY Status: Acute Priority: High Current Visit: Yes (3) Bacteremia SNOMED Code(s): 3677656 ICD Code: R78.81 - BACTEREMIA Status: Acute Priority: High Current Visit: Yes (4) Hyperglycemia due to type 2 diabetes mellitus SNOMED Code(s): 548996656452187, 126258322233010 ICD Code: E11.65 - TYPE 2 DIABETES MELLITUS WITH HYPERGLYCEMIA Status: Acute Priority: High Current Visit: Yes Qualifiers: Diabetes mellitus residential insulin use: unspecified residential insulin use status Qualified Code(s): E11.65 - Type 2 diabetes mellitus with hyperglycemia (5) Immunosuppressed status SNOMED Code(s): 25510951 ICD Code: D89.9 - DISORDER INVOLVING THE IMMUNE MECHANISM, UNSPECIFIED Status: Chronic Priority: High Current Visit: Yes (6) Renal transplant, status post SNOMED Code(s): 808398054, 23214630, 818429630 ICD Code: Z94.0 - KIDNEY TRANSPLANT STATUS Status: Chronic Priority: High Current Visit: Yes (7) UTI (urinary tract infection) SNOMED Code(s): 99005914 ICD Code: N39.0 - URINARY TRACT INFECTION, SITE NOT SPECIFIED Status: Acute Priority: High Current Visit: Yes Qualifiers: Urinary tract infection type: site unspecified Hematuria presence: without hematuria Qualified Code(s): N39.0 - Urinary tract infection, site not specified - Patient Summary/Data Consults: Consultations 07/02/18 09:45 PT Evaluation and Treatment [CONS] Routine 07/02/18 09:46 OT Evaluation and Treatment [CONS] Routine Labs Pending at D/C: None Recommended Follow-up Testing/Procedures: Follow-up with Dr. Roque at scheduled appointment. Hospital Course: Impression: Pulmonary congestion-->resolved Elevated D dimer-->normal perfusion study, negative Venous doppler Acute respiratory distress on BiPAP-->resolved, had BIPAP<24 hours on admission Hypoxia---resolved AUTI with history of recurrence, UC/BC; called by micro will stop Levaquin, Continue Meropenem for E COLI ESBL; Repeat BCs are negative ~48 hours--->DC Saturday S/P renal transplant on anti rejection agents Chronic HLD CRI Anxiety Depression Diabetes Mellitus type 2 Obesity, BMI 36.6 Plan: IVF Repeat BCs after 48 hours of current ATB therapy Diurese as needed Accurate I/Os Levoquin IV-> switch meropenem Resp isolation--DCd Slow steroid taper. DVT/GI prophylaxis Consult PT/OT LOS>96 hours with change in ATB for recurrent UTI, Need for continued IV antibiotic Discussed case with pharmacy. They are recommending IV Meropenem due to ESBL. Probable discharge 07/09/18 - Patient Instructions Diet: Diabetic Diet, Renal Diet Activity: As Tolerated Notify Provider of: Fever, Increased Pain, Nausea and/or Vomiting - Discharge Plan *PRESCRIPTION DRUG MONITORING PROGRAM REVIEWED*: Not Applicable *COPY OF PRESCRIPTION DRUG MONITORING REPORT IN PATIENT ELVIRA: Not Applicable Home Medications: Home Meds Acetaminophen 1,000 mg PO Q6HR PRN 07/02/18 [History] Aspirin [Halfprin] 81 mg PO DAILY 07/02/18 [History] Docusate Sodium [Colace] 200 mg PO DAILY PRN 07/02/18 [History] Fluticasone Propionate [Flonase] 50 mcg NASBOTH DAILY PRN 07/02/18 [History] Furosemide [Lasix] 20 mg PO BID 07/02/18 [History] Gabapentin [Neurontin] 100 mg PO DAILY 07/02/18 [History] Insulin Glargine,Hum.Rec.Anlog [Lantus Solostar] 14 units SQ DAILY 07/02/18 [ History] Insulin Lispro [Humalog] 5 - 15 unit SQ QID 07/02/18 [History] Loratadine/Pseudoephedrine [Loratadine-Pseudoephed 10-240] 1 each PO DAILY 07/02 [History] Mycophenolate Mofetil [Cellcept] 500 mg PO BID 07/02/18 [History] Pantoprazole [ProTONIX] 40 mg PO DAILY 07/02/18 [History] Sertraline [Zoloft] 150 mg PO DAILY 07/02/18 [History] Sodium Bicarbonate 1,300 mg PO BID 07/02/18 [History] Sulfamethoxazole/Trimethoprim [Bactrim Ds Tablet] 1 each PO MOWEFR 07/02/18 [ History] atorvaSTATin [Lipitor] 20 mg PO DAILY 07/02/18 [History] predniSONE [Prednisone] 5 mg PO DAILY 07/02/18 [History] Tacrolimus 2 mg PO BID 07/03/18 [History] Forms: ED Department Discharge Referrals: PCP,Not In Area [Primary Care Provider] - Dave Roque MD [Ordering Only Provider] - 07/18/18 10:45 am (This appt. is in [place] location if you need to change or cancel appt. please call [phone]) - Discharge Summary/Plan Comment DC Time >30 min.: Yes (45 mins) - General Info Date of Service: 07/09/18 Admission Dx/Problem (Free Text: Admission Diagnosis/Problem Admission Diagnosis/Problem Pulmonary edema Functional Status: Reports: Pain Controlled, Tolerating Diet, Ambulating, Urinating. Denies: New Symptoms - Review of Systems General: Reports: No Symptoms. Denies: Fever, Weakness, Fatigue, Malaise HEENT: Reports: No Symptoms. Denies: Sore Throat Pulmonary: Reports: No Symptoms. Denies: Shortness of Breath, Cough, Sputum Cardiovascular: Reports: No Symptoms. Denies: Chest Pain, Palpitations, Edema Gastrointestinal: Reports: No Symptoms. Denies: Abdominal Pain, Constipation, Diarrhea, Nausea, Vomiting Genitourinary: Reports: No Symptoms Musculoskeletal: Reports: No Symptoms Skin: Reports: No Symptoms Neurological: Reports: No Symptoms Psychiatric: Reports: No Symptoms - Patient Data Vitals - Most Recent: Last Vital Signs Temp 98.2 F 07/09/18 02:44 Pulse 65 07/09/18 02:44 Resp 16 07/09/18 02:44 BP 109/60 07/09/18 02:44 Pulse Ox 100 07/09/18 02:44 Weight - Most Recent: 199 lb 9 oz I&O - Last 24 hours: Intake & Output 07/08/18 07/08/18 07/09/18 14:59 22:59 06:59 Intake Total 700 820 200 Output Total 800 Balance 700 20 200 Lab Results - Last 24 hrs: Laboratory Results - last 24 hr 07/08/18 07/08/18 07/08/18 Range/Units 06:32 07:27 07:27 WBC 4.08 (3.98-10.04) K/mm3 RBC 4.09 (3.98-5.22) M/mm3 Hgb 11.1 L (11.2-15.7) gm/L Hct 37.8 (34.1-44.9) % MCV 92.4 (79.4-94.8) fl MCH 27.1 (25.6-32.2) pg MCHC 29.4 L (32.2-35.5) g/dl RDW Std Deviation 48.7 H (36.4-46.3) fL Plt Count 227 (182-369) K/mm3 MPV 9.9 (9.4-12.3) fl Neut % (Auto) 70.6 (34.0-71.1) % Lymph % (Auto) 15.7 L (19.3-51.7) % [place] % (Auto) 10.0 (4.7-12.5) % Eos % (Auto) 1.5 (0.7-5.8) Baso % (Auto) 0.2 (0.1-1.2) % Neut # (Auto) 2.88 (1.56-6.13) K/mm3 Lymph # (Auto) 0.64 L (1.18-3.74) K/mm3 [place] # (Auto) 0.41 H (0.24-0.36) K/mm3 Eos # (Auto) 0.06 (0.04-0.36) K/mm3 Baso # (Auto) 0.01 (0.01-0.08) K/mm3 Manual Slide Review Abnormal smear Sodium 142 (136-145) mEq/L Potassium 4.1 (3.5-5.1) mEq/L Chloride 107 (98-107) mEq/L Carbon Dioxide 24 (21-32) mEq/L Anion Gap 15.1 H (5-15) BUN 43 H (7-18) mg/dL Creatinine 1.3 H (0.55-1.02) mg/dL Est Cr Clr Drug Dosing 33.78 mL/min Estimated GFR (MDRD) 41 (>60) mL/min BUN/Creatinine Ratio 33.1 H (14-18) Glucose 114 (80-115) mg/dL POC Glucose 126 H (80-115) mg/dL Calcium 8.1 L (8.5-10.1) mg/dL Magnesium 2.2 (1.8-2.4) mg/dl C-Reactive Protein 0.9 (<1.0) mg/dL 07/08/18 07/08/18 07/08/18 Range/Units 11:18 17:02 21:22 WBC (3.98-10.04) K/mm3 RBC (3.98-5.22) M/mm3 Hgb (11.2-15.7) gm/L Hct (34.1-44.9) % MCV (79.4-94.8) fl MCH (25.6-32.2) pg MCHC (32.2-35.5) g/dl RDW Std Deviation (36.4-46.3) fL Plt Count (182-369) K/mm3 MPV (9.4-12.3) fl Neut % (Auto) (34.0-71.1) % Lymph % (Auto) (19.3-51.7) % [place] % (Auto) (4.7-12.5) % Eos % (Auto) (0.7-5.8) Baso % (Auto) (0.1-1.2) % Neut # (Auto) (1.56-6.13) K/mm3 Lymph # (Auto) (1.18-3.74) K/mm3 [place] # (Auto) (0.24-0.36) K/mm3 Eos # (Auto) (0.04-0.36) K/mm3 Baso # (Auto) (0.01-0.08) K/mm3 Manual Slide Review Sodium (136-145) mEq/L Potassium (3.5-5.1) mEq/L Chloride (98-107) mEq/L Carbon Dioxide (21-32) mEq/L Anion Gap (5-15) BUN (7-18) mg/dL Creatinine (0.55-1.02) mg/dL Est Cr Clr Drug Dosing mL/min Estimated GFR (MDRD) (>60) mL/min BUN/Creatinine Ratio (14-18) Glucose (80-115) mg/dL POC Glucose 273 H 354 H 345 H (80-115) mg/dL Calcium (8.5-10.1) mg/dL Magnesium (1.8-2.4) mg/dl C-Reactive Protein (<1.0) mg/dL BIJU Results - Last 24 hrs: Microbiology 07/05/18 10:45 Aerobic Blood Culture - Preliminary Blood - Venous - Lab Draw NO GROWTH AFTER 3 DAYS Anaerobic Blood Culture - Final 07/05/18 10:00 Aerobic Blood Culture - Preliminary Blood - Venous NO GROWTH AFTER 3 DAYS Anaerobic Blood Culture - Preliminary NO GROWTH AFTER 3 DAYS Med Orders - Current: Current Medications Acetaminophen (Tylenol) 650 mg PO Q6HR PRN PRN Reason: Pain Last Admin: 07/08/18 09:25 Dose: 650 mg Albuterol/Ipratropium (Duoneb 3.0-0.5 Mg/3 Ml) 3 ml NEB Q6HRRT PRN PRN Reason: Shortness of Breath Aspirin (Halfprin) 81 mg PO DAILY [facility] Last Admin: 07/08/18 08:29 Dose: 81 mg Docusate Sodium (Colace) 200 mg PO DAILY PRN PRN Reason: Constipation Enoxaparin Sodium (Lovenox) 90 mg SUBCUT DAILY [facility] Last Admin: 07/08/18 08:28 Dose: 90 mg Flunisolide (Nasalide Nasal [place]) 0 ml NASBOTH Q12H PRN PRN Reason: Rhinitis Furosemide (Lasix) 20 mg IVPUSH BID [facility] Last Admin: 07/08/18 20:20 Dose: 20 mg Gabapentin (Neurontin) 100 mg PO DAILY [facility] Last Admin: 07/08/18 08:29 Dose: 100 mg Meropenem 1 gm/ Sodium (Chloride) 100 mls @ 33.333 mls/hr IV Q8H [facility] Last Admin: 07/08/18 23:25 Dose: 33.333 mls/hr Insulin Glargine (Lantus Solostar) 14 units SUBCUT DAILY [facility] Last Admin: 07/08/18 08:29 Dose: 14 units Insulin Human Lispro (Humalog) 0 unit SUBCUT QIDACANDBED [facility]; Protocol Last Admin: 07/08/18 21:23 Dose: 12 units Loratadine (Claritin) 10 mg PO DAILY [facility] Last Admin: 07/08/18 08:29 Dose: 10 mg Lorazepam (Ativan) 0.5 mg PO Q8H PRN PRN Reason: Anxiety Last Admin: 07/08/18 15:57 Dose: 0.5 mg Mycophenolate Mofetil (Cellcept) 500 mg PO BID [facility] Last Admin: 07/08/18 20:20 Dose: 500 mg Pantoprazole Sodium (Protonix) 40 mg PO DAILY [facility] Last Admin: 07/08/18 08:28 Dose: 40 mg Prednisone (Prednisone) 30 mg PO DAILY [facility] Stop: 07/10/18 09:01 Last Admin: 07/08/18 08:27 Dose: 30 mg Prednisone (Prednisone) 20 mg PO DAILY [facility] Stop: 07/13/18 09:01 Prednisone (Prednisone) 10 mg PO DAILY [facility] Stop: 07/16/18 09:01 Rosuvastatin Calcium (Crestor) 10 mg PO DAILY [facility] Last Admin: 07/08/18 08:28 Dose: 10 mg Sertraline HCl (Zoloft) 150 mg PO DAILY [facility] Last Admin: 07/08/18 08:28 Dose: 150 mg Sodium Bicarbonate (Sodium Bicarbonate) 1,300 mg PO BID [facility] Last Admin: 07/08/18 20:20 Dose: 1,300 mg Tacrolimus (Prograf) 2 mg PO BID [facility] Last Admin: 07/08/18 20:20 Dose: 2 mg Discontinued Medications Enoxaparin Sodium (Lovenox) 95 [facility]IME [facility] Stop: 07/01/18 22:29 Last Admin: 07/01/18 22:42 Dose: 95 mg Enoxaparin Sodium (Lovenox) 30 mg SUBCUT Q24H [facility] Last Admin: 07/07/18 00:03 Dose: Not Given Flunisolide (Nasalide Nasal [place]) 0 ml NASBOTH DAILY PRN PRN Reason: Rhinitis Furosemide (Lasix) 40 mg IVPUSH NOW ONE Stop: 07/01/18 21:03 Last Admin: 07/01/18 21:39 Dose: 40 mg Furosemide (Lasix) 20 mg IV ONETIME ONE Stop: 07/03/18 16:16 Last Admin: 07/03/18 16:59 Dose: 20 mg Ceftriaxone Sodium 2 gm/ (Sodium Chloride) 100 mls @ 100 mls/hr IV ONETIME ONE Stop: 07/02/18 02:16 Last Admin: 07/02/18 02:37 Dose: 100 mls/hr Azithromycin 500 mg/ Sodium (Chloride) 250 mls @ 250 mls/hr IV ONETIME ONE Stop: 07/02/18 03:29 Last Admin: 07/02/18 03:09 Dose: 250 mls/hr Ceftriaxone Sodium 2 gm/ (Sodium Chloride) 100 mls @ 100 mls/hr IV Q24H [facility] Levofloxacin/Dextrose 750 mg/ (Premix) 150 mls @ 100 mls/hr IV Q48H [facility] Last Admin: 07/02/18 14:08 Dose: 100 mls/hr Insulin Human Lispro (Humalog) 0 unit SUBCUT QIDACANDBED [facility]; Protocol Last Admin: 07/06/18 17:51 Dose: Not Given Insulin Human Lispro (Humalog) 0 unit SUBCUT QIDACANDBED [facility]; Protocol Last Admin: 07/07/18 18:54 Dose: Not Given Insulin Human Regular (Humulin R) 8 unit SUBCUT ONETIME [facility] Stop: 07/01/18 22:44 Last Admin: 07/01/18 22:56 Dose: 8 units Methylprednisolone Sodium Succinate (Solu-Medrol) 40 mg IVPUSH DAILY [facility] Last Admin: 07/05/18 10:36 Dose: Not Given Tacrolimus 0.5 Mg (Capsules) 0 each PO DAILY [facility] Last Admin: 07/03/18 13:00 Dose: 3 each Tacrolimus 0.5 Mg (Capsules) 0 each PO QPM [facility] Tacrolimus 0.5 Mg (Capsules) 0 each PO BID [facility] Tacrolimus 0.5 Mg (Capsules) 0 each PO DAILY [facility] Prednisone (Prednisone) 40 mg PO DAILY [facility] Stop: 07/07/18 09:01 Last Admin: 07/07/18 08:05 Dose: 40 mg Trimethoprim/Sulfamethoxazole (Septra Ds) 1 tab PO ONETIME ONE Stop: 07/01/18 23:15 Last Admin: 07/01/18 23:18 Dose: 1 tab Trimethoprim/Sulfamethoxazole (Septra Ds) tab PO MOWEFR [facility]NAK - Exam Quality Assessment: Reports: DVT Prophylaxis General: Reports: Alert, Oriented, Cooperative, No Acute Distress HEENT: Reports: Pupils Equal, Pupils Reactive, EOMI, Mucous Membr. Moist/[place] Neck: Reports: Supple, Trachea Midline, No JVD Lungs: Reports: Clear to Auscultation, Normal Respiratory Effort Cardiovascular: Reports: Regular Rate, Regular Rhythm GI/Abdominal Exam: Normal Bowel Sounds, Soft, Non-Tender, No Mass (Female) Exam: Deferred Rectal (Female) Exam: Deferred Back Exam: Reports: Normal Inspection, Full Range of Motion Extremities: Normal Inspection, Normal Range of Motion, Non-Tender, No Pedal Edema, Normal Capillary Refill Skin: Reports: Warm, Dry, Intact Neurological: Reports: No New Focal Deficit Psy/Mental Status: Reports: Alert, Normal Affect, Normal Mood
[2018-07-09] MEDS: Insulin Lispro 100 Unit/ML 3 ML KwikPen SUBCUT SCH ×3 (07:15→17:58)
[2018-07-09] MEDS: Furosemide 20 MG/2 ML VIAL IVPUSH SCH (08:15)
[2018-07-09] MEDS: Meropenem 1 GM in Sodium Chloride 0.9% 100 ML IV SCH (08:17)
[2018-07-09] MEDS: Sodium Bicarbonate 650 MG Tab PO SCH (08:23)
[2018-07-09] MEDS: Aspirin 81 MG Tab.EC PO SCH (08:24)
[2018-07-09] MEDS: Loratadine 10 MG Tab PO SCH (08:24)
[2018-07-09] MEDS: Pantoprazole 40 MG Tab.CR PO SCH (08:24)
[2018-07-09] MEDS: Sertraline 50 MG Tab PO SCH (08:24)
[2018-07-09] MEDS: Gabapentin 100 MG Cap PO SCH (08:24)
[2018-07-09] MEDS: predniSONE 10 MG Tab PO SCH (08:24)
[2018-07-09] MEDS: Rosuvastatin 10 MG Tab PO SCH (08:24)
[2018-07-09] MEDS: Tacrolimus 1 MG Cap PO SCH (08:25)
[2018-07-09] MEDS: Insulin Glargine,Human Rec. Analog 100 Units/ML 3 ML Pen SUBCUT SCH (08:29)
[2018-07-09] MEDS: Enoxaparin 100 MG/1 ML Syringe SUBCUT SCH (08:30)
[2018-07-09] MEDS: Mycophenolate Mofetil 250 MG Cap PO SCH (08:32)
[2018-07-09] MEDS ORDERED: Meropenem 1 GM in Sodium Chloride 0.9% 100 ML IV SCH ×4 (14:00)
[2018-07-09 15:36] VITALS: BP 147/59
--- NOTE | 2018-07-09 16:32 | PCM.DCSUM1 ---
Discharge Summary - Hospital Course HPI Initial Comments: The patient states that she developed dyspnea at rest, nausea, and vomiting this morning. She denies orthopnea. She states that she has not been wheezing. She states that she has been coughing, productive of clear sputum. She reports dysuria and urinary frequency for the past 2 days. No recent fever or chills. No recent constipation or diarrhea. No recent abdominal pain. The patient states that she has not had similar dyspnea in the past, however, she reports frequent urinary tract infections with similar urinary symptoms. Here in the ED, the patient is found to be tachycardic and tachypneic, saturating 87% on room air, 93% on 3 L of oxygen per nasal cannula. Diagnosis: Stroke: No - Discharge Data Discharge Date: 07/09/18 (ADMIT 07/02/18) Discharge Disposition: Home, Self-Care 01 Condition: Fair - Patient Summary/Data Operative Procedure(s) Performed: none Complications: none Consults: Consultations 07/02/18 09:45 PT Evaluation and Treatment [CONS] Routine 07/02/18 09:46 OT Evaluation and Treatment [CONS] Routine Labs Pending at D/C: none Recommended Follow-up Testing/Procedures: F/U with your PCP, Dr. Roque, on your previously made appt on 07/18/18. Planned Operative Procedure(s) after DC: none Hospital Course: Impression: Pulmonary congestion-->resolved Elevated D dimer-->normal perfusion study, negative Venous doppler Acute respiratory distress on BiPAP-->resolved, had BIPAP<24 hours on admission Hypoxia---resolved AUTI with history of recurrence, UC/BC; called by micro will stop Levaquin, Continue Meropenem for E COLI ESBL; Repeat BCs are negative ~48 hours--->DC Saturday S/P renal transplant on anti rejection agents Chronic HLD CRI Anxiety Depression Diabetes Mellitus type 2 Obesity, BMI 36.6 Plan: IVF Repeat BCs after 48 hours of current ATB therapy Diurese as needed Accurate I/Os Levoquin IV-> switch meropenem Resp isolation--DCd Slow steroid taper. DVT/GI prophylaxis Consult PT/OT LOS>96 hours with change in ATB for recurrent UTI, Need for continued IV antibiotic Discussed case with pharmacy. They are recommending 1 more day IV Meropenem due to ESBL. Probable discharge 07/09/18 Cherelle has done very well after being admitted for Pulmonary congestion, Elevated D dimer, acute respiratory distress, hypoxia and UTI. Her pulmonary congestion, hypoxia and acute respiratory distress have resolved- she is no longer on BiPAP and is 97% on RA. Regarding her elevated D-dimer, she had a normal perfusion study and negative Venous doppler. She did have E COLI ESBL in her urine, was on IV Meropenem x 6 days. Repeat BCs are negative. She will be D/C'd home today on a Prednisone taper- 20mg x 2 days, then 20mg x 2 days, then back to normal 5mg dose. She should f/u with her PCP on previously scheduled appointment on . - Patient Instructions Diet: Diabetic Diet, Renal Diet (Non-Dialysis Diet) Activity: As Tolerated Driving: Do Not Drive Showering/Bathing: May Shower Notify Provider of: Fever, Increased Pain, Nausea and/or Vomiting - Discharge Plan *PRESCRIPTION DRUG MONITORING PROGRAM REVIEWED*: Not Applicable *COPY OF PRESCRIPTION DRUG MONITORING REPORT IN PATIENT ELVIRA: Not Applicable Home Medications: Home Meds Acetaminophen 1,000 mg PO Q6HR PRN 07/02/18 [History] Aspirin [Halfprin] 81 mg PO DAILY 07/02/18 [History] Docusate Sodium [Colace] 200 mg PO DAILY PRN 07/02/18 [History] Fluticasone Propionate [Flonase] 50 mcg NASBOTH DAILY PRN 07/02/18 [History] Furosemide [Lasix] 20 mg PO BID 07/02/18 [History] Gabapentin [Neurontin] 100 mg PO DAILY 07/02/18 [History] Insulin Glargine,Hum.Rec.Anlog [Lantus Solostar] 14 units SQ DAILY 07/02/18 [ History] Insulin Lispro [Humalog Kwikpen U-100] 5 - 15 unit SQ QID 07/02/18 [History] Loratadine/Pseudoephedrine [Loratadine-Pseudoephed 10-240] 1 each PO DAILY 07/02 [History] Mycophenolate Mofetil [Cellcept] 500 mg PO BID 07/02/18 [History] Pantoprazole [ProTONIX] 40 mg PO DAILY 07/02/18 [History] Sertraline [Zoloft] 150 mg PO DAILY 07/02/18 [History] Sodium Bicarbonate 1,300 mg PO BID 07/02/18 [History] Sulfamethoxazole/Trimethoprim [Bactrim Ds Tablet] 1 each PO MOWEFR 07/02/18 [ History] atorvaSTATin [Lipitor] 20 mg PO DAILY 07/02/18 [History] predniSONE [Prednisone] 5 mg PO DAILY 07/02/18 [History] Tacrolimus 2 mg PO BID 07/03/18 [History] Patient Handouts: Chronic Kidney Disease, Adult, [id number], Antibiotic Medicine, Adult Referrals: Dave Roque MD [Ordering Only Provider] - 07/18/18 10:45 am (This appt. is in [place] location if you need to change or cancel appt. please call [phone]) - Discharge Summary/Plan Comment DC Time >30 min.: Yes (45) - Patient Data Vitals - Most Recent: Last Vital Signs Temp 98.4 F 07/09/18 15:23 Pulse 78 07/09/18 15:23 Resp 12 07/09/18 15:23 BP 147/59 H 07/09/18 15:23 Pulse Ox 97 07/09/18 15:23 Weight - Most Recent: 199 lb 1.6 oz I&O - Last 24 hours: Intake & Output 07/09/18 07/09/18 07/09/18 06:59 14:59 22:59 Intake Total 400 440 513 Output Total 2100 700 Balance -1700 440 -187 Lab Results - Last 24 hrs: Laboratory Results - last 24 hr 07/08/18 07/08/18 07/09/18 Range/Units 17:02 21:22 05:47 WBC 4.00 (3.98-10.04) K/mm3 RBC 3.94 L (3.98-5.22) M/mm3 Hgb 10.6 L (11.2-15.7) gm/L Hct 36.3 (34.1-44.9) % MCV 92.1 (79.4-94.8) fl MCH 26.9 (25.6-32.2) pg MCHC 29.2 L (32.2-35.5) g/dl RDW Std Deviation 49.0 H (36.4-46.3) fL Plt Count 235 (182-369) K/mm3 MPV 10.2 (9.4-12.3) fl Neut % (Auto) 70.7 (34.0-71.1) % Lymph % (Auto) 16.0 L (19.3-51.7) % [place] % (Auto) 9.3 (4.7-12.5) % Eos % (Auto) 1.5 (0.7-5.8) Baso % (Auto) 0.0 L (0.1-1.2) % Neut # (Auto) 2.83 (1.56-6.13) K/mm3 Lymph # (Auto) 0.64 L (1.18-3.74) K/mm3 [place] # (Auto) 0.37 H (0.24-0.36) K/mm3 Eos # (Auto) 0.06 (0.04-0.36) K/mm3 Baso # (Auto) 0.00 L (0.01-0.08) K/mm3 Manual Slide Review Abnormal smear Sodium (136-145) mEq/L Potassium (3.5-5.1) mEq/L Chloride (98-107) mEq/L Carbon Dioxide (21-32) mEq/L Anion Gap (5-15) BUN (7-18) mg/dL Creatinine (0.55-1.02) mg/dL Est Cr Clr Drug Dosing mL/min Estimated GFR (MDRD) (>60) mL/min BUN/Creatinine Ratio (14-18) Glucose (80-115) mg/dL POC Glucose 354 H 345 H (80-115) mg/dL Calcium (8.5-10.1) mg/dL Magnesium (1.8-2.4) mg/dl C-Reactive Protein (<1.0) mg/dL 07/09/18 07/09/18 07/09/18 Range/Units 05:47 06:15 10:57 WBC (3.98-10.04) K/mm3 RBC (3.98-5.22) M/mm3 Hgb (11.2-15.7) gm/L Hct (34.1-44.9) % MCV (79.4-94.8) fl MCH (25.6-32.2) pg MCHC (32.2-35.5) g/dl RDW Std Deviation (36.4-46.3) fL Plt Count (182-369) K/mm3 MPV (9.4-12.3) fl Neut % (Auto) (34.0-71.1) % Lymph % (Auto) (19.3-51.7) % [place] % (Auto) (4.7-12.5) % Eos % (Auto) (0.7-5.8) Baso % (Auto) (0.1-1.2) % Neut # (Auto) (1.56-6.13) K/mm3 Lymph # (Auto) (1.18-3.74) K/mm3 [place] # (Auto) (0.24-0.36) K/mm3 Eos # (Auto) (0.04-0.36) K/mm3 Baso # (Auto) (0.01-0.08) K/mm3 Manual Slide Review Sodium 141 (136-145) mEq/L Potassium 3.9 (3.5-5.1) mEq/L Chloride 107 (98-107) mEq/L Carbon Dioxide 26 (21-32) mEq/L Anion Gap 11.9 (5-15) BUN 45 H (7-18) mg/dL Creatinine 1.2 H (0.55-1.02) mg/dL Est Cr Clr Drug Dosing 36.60 mL/min Estimated GFR (MDRD) 45 (>60) mL/min BUN/Creatinine Ratio 37.5 H (14-18) Glucose 119 H (80-115) mg/dL POC Glucose 115 246 H (80-115) mg/dL Calcium 7.8 L (8.5-10.1) mg/dL Magnesium 2.1 (1.8-2.4) mg/dl C-Reactive Protein 0.8 (<1.0) mg/dL BIJU Results - Last 24 hrs: Microbiology 07/05/18 10:45 Aerobic Blood Culture - Preliminary Blood - Venous - Lab Draw NO GROWTH AFTER 4 DAYS Anaerobic Blood Culture - Final 07/05/18 10:00 Aerobic Blood Culture - Preliminary Blood - Venous NO GROWTH AFTER 4 DAYS Anaerobic Blood Culture - Preliminary NO GROWTH AFTER 4 DAYS Med Orders - Current: Current Medications Acetaminophen (Tylenol) 650 mg PO Q6HR PRN PRN Reason: Pain Last Admin: 07/08/18 09:25 Dose: 650 mg Albuterol/Ipratropium (Duoneb 3.0-0.5 Mg/3 Ml) 3 ml NEB Q6HRRT PRN PRN Reason: Shortness of Breath Aspirin (Halfprin) 81 mg PO DAILY [facility] Last Admin: 07/09/18 08:24 Dose: 81 mg Docusate Sodium (Colace) 200 mg PO DAILY PRN PRN Reason: Constipation Enoxaparin Sodium (Lovenox) 90 mg SUBCUT DAILY [facility] Last Admin: 07/09/18 08:30 Dose: 90 mg Flunisolide (Nasalide Nasal [place]) 0 ml NASBOTH Q12H PRN PRN Reason: Rhinitis Furosemide (Lasix) 20 mg IVPUSH BID [facility] Last Admin: 07/09/18 08:15 Dose: 20 mg Gabapentin (Neurontin) 100 mg PO DAILY [facility] Last Admin: 07/09/18 08:24 Dose: 100 mg Meropenem 1 gm/ Sodium (Chloride) 100 mls @ 33.333 mls/hr IV Q8H [facility] Last Admin: 07/09/18 13:50 Dose: 33.333 mls/hr Insulin Glargine (Lantus Solostar) 14 units SUBCUT DAILY [facility] Last Admin: 07/09/18 08:29 Dose: 14 units Insulin Human Lispro (Humalog) 0 unit SUBCUT QIDACANDBED [facility]; Protocol Last Admin: 07/09/18 11:17 Dose: 6 units Loratadine (Claritin) 10 mg PO DAILY [facility] Last Admin: 07/09/18 08:24 Dose: 10 mg Lorazepam (Ativan) 0.5 mg PO Q8H PRN PRN Reason: Anxiety Last Admin: 07/08/18 15:57 Dose: 0.5 mg Mycophenolate Mofetil (Cellcept) 500 mg PO BID [facility] Last Admin: 07/09/18 08:32 Dose: 500 mg Pantoprazole Sodium (Protonix) 40 mg PO DAILY [facility] Last Admin: 07/09/18 08:24 Dose: 40 mg Prednisone (Prednisone) 30 mg PO DAILY [facility] Stop: 07/10/18 09:01 Last Admin: 07/09/18 08:24 Dose: 30 mg Prednisone (Prednisone) 20 mg PO DAILY [facility] Stop: 07/13/18 09:01 Prednisone (Prednisone) 10 mg PO DAILY [facility] Stop: 07/16/18 09:01 Rosuvastatin Calcium (Crestor) 10 mg PO DAILY [facility] Last Admin: 07/09/18 08:24 Dose: 10 mg Sertraline HCl (Zoloft) 150 mg PO DAILY [facility] Last Admin: 07/09/18 08:24 Dose: 150 mg Sodium Bicarbonate (Sodium Bicarbonate) 1,300 mg PO BID [facility] Last Admin: 07/09/18 08:23 Dose: 1,300 mg Tacrolimus (Prograf) 2 mg PO BID [facility] Last Admin: 07/09/18 08:25 Dose: 2 mg Discontinued Medications Enoxaparin Sodium (Lovenox) 95 mg SUBCUT ONETIME STA Stop: 07/01/18 22:29 Last Admin: 07/01/18 22:42 Dose: 95 mg Enoxaparin Sodium (Lovenox) 30 mg SUBCUT Q24H [facility] Last Admin: 07/07/18 00:03 Dose: Not Given Flunisolide (Nasalide Nasal [place]) 0 ml NASBOTH DAILY PRN PRN Reason: Rhinitis Furosemide (Lasix) 40 mg IVPUSH NOW ONE Stop: 07/01/18 21:03 Last Admin: 07/01/18 21:39 Dose: 40 mg Furosemide (Lasix) 20 mg IV ONETIME ONE Stop: 07/03/18 16:16 Last Admin: 07/03/18 16:59 Dose: 20 mg Ceftriaxone Sodium 2 gm/ (Sodium Chloride) 100 mls @ 100 mls/hr IV ONETIME ONE Stop: 07/02/18 02:16 Last Admin: 07/02/18 02:37 Dose: 100 mls/hr Azithromycin 500 mg/ Sodium (Chloride) 250 mls @ 250 mls/hr IV ONETIME ONE Stop: 07/02/18 03:29 Last Admin: 07/02/18 03:09 Dose: 250 mls/hr Ceftriaxone Sodium 2 gm/ (Sodium Chloride) 100 mls @ 100 mls/hr IV Q24H [facility] Levofloxacin/Dextrose 750 mg/ (Premix) 150 mls @ 100 mls/hr IV Q48H [facility] Last Admin: 07/02/18 14:08 Dose: 100 mls/hr Meropenem 1 gm/ Sodium (Chloride) 100 mls @ 33.333 mls/hr IV Q8H [facility] Last Admin: 07/09/18 08:17 Dose: 33.333 mls/hr Meropenem 1 gm/ Sodium (Chloride) 100 mls @ 33.333 mls/hr IV Q8H [facility] Stop: 07/09/18 16:59 Insulin Human Lispro (Humalog) 0 unit SUBCUT QIDACANDBED [facility]; Protocol Last Admin: 07/06/18 17:51 Dose: Not Given Insulin Human Lispro (Humalog) 0 unit SUBCUT QIDACANDBED [facility]; Protocol Last Admin: 07/07/18 18:54 Dose: Not Given Insulin Human Regular (Humulin R) 8 unit SUBCUT ONETIME STA Stop: 07/01/18 22:44 Last Admin: 07/01/18 22:56 Dose: 8 units Methylprednisolone Sodium Succinate (Solu-Medrol) 40 mg IVPUSH DAILY [facility] Last Admin: 07/05/18 10:36 Dose: Not Given Tacrolimus 0.5 Mg (Capsules) 0 each PO DAILY [facility] Last Admin: 07/03/18 13:00 Dose: 3 each Tacrolimus 0.5 Mg (Capsules) 0 each PO QPM [facility] Tacrolimus 0.5 Mg (Capsules) 0 each PO BID [facility] Tacrolimus 0.5 Mg (Capsules) 0 each PO DAILY [facility] Prednisone (Prednisone) 40 mg PO DAILY [facility] Stop: 07/07/18 09:01 Last Admin: 07/07/18 08:05 Dose: 40 mg Trimethoprim/Sulfamethoxazole (Septra Ds) 1 tab PO ONETIME ONE Stop: 07/01/18 23:15 Last Admin: 07/01/18 23:18 Dose: 1 tab Trimethoprim/Sulfamethoxazole (Septra Ds) tab PO MOWEFR [facility]
[2018-07-11] MEDS ORDERED: predniSONE 20 MG Tab PO SCH (09:00)
[2018-07-14] MEDS ORDERED: predniSONE 10 MG Tab PO SCH (09:00)
== END 2018-07-09 18:12 | disposition home or self-care (01) | DRG 689 ==
LOC: JD.ED 20:26 → JD.MS 07-02 00:31 → JD.ICU 07-02 00:31 → UNDOADMIN 07-02 00:31 → JD.MS 07-02 17:40
PROVIDERS: ADMIT Internal Medicine Cardiovascular Disease; ATTEND Internal Medicine Cardiovascular Disease
PROC: 5A09357 Assistance with Respiratory Ventilation, Less than 24 Consecutive Hours, Continuous Positive Airway Pressure (ICD-10-PCS; principal; 2018-07-01)
DX: N39.0 Urinary tract infection, site not specified (principal); R35.0 Frequency of micturition; J96.01 Acute respiratory failure with hypoxia; E87.2 Acidosis; Z94.0 Kidney transplant status; J81.1 Chronic pulmonary edema; B96.20 Unspecified Escherichia coli [E. coli] as the cause of diseases classified elsewhere; N28.9 Disorder of kidney and ureter, unspecified; Z16.12 Extended spectrum beta lactamase (ESBL) resistance; E78.00 Pure hypercholesterolemia, unspecified; E66.9 Obesity, unspecified; R79.1 Abnormal coagulation profile; E11.65 Type 2 diabetes mellitus with hyperglycemia; E11.22 Type 2 diabetes mellitus with diabetic chronic kidney disease; N18.9 Chronic kidney disease, unspecified; K74.60 Unspecified cirrhosis of liver; R56.9 Unspecified convulsions; E78.5 Hyperlipidemia, unspecified; F41.9 Anxiety disorder, unspecified; F32.9 Major depressive disorder, single episode, unspecified; R05 Cough; R06.00 Dyspnea, unspecified; R11.2 Nausea with vomiting, unspecified; R30.0 Dysuria; D72.819 Decreased white blood cell count, unspecified; H40.9 Unspecified glaucoma; Z87.440 Personal history of urinary (tract) infections; Z68.36 Body mass index [BMI] 36.0-36.9, adult; Z88.8 Allergy status to other drugs, medicaments and biological substances; Z90.49 Acquired absence of other specified parts of digestive tract; Z96.651 Presence of right artificial knee joint; Z79.899 Other long term (current) drug therapy; Z79.82 Long term (current) use of aspirin; Z79.52 Long term (current) use of systemic steroids
CPT/HCPCS: 36415; 36600 ×2; 51702; 71045; 80053; 81001; 82803 ×2; 83605; 83880; 84484; 85007; 85027; 85379; 85610; 85730; 87040 ×2; 87086; 93005; 96372; 96374; 99285; A9270; J1650; J1815; J1940; 71046; 71046-26; 78580; 78580-26; 80048; 82009; 82947; 82962; 83735; 85025; 86140; 86738; 87077; 87088; 87186; 87486; 87581; 87632; 87641; 87798; 87899; 93010; 93970; 93970-26; 97110-GP; 97116-GP; 97162-GP; 97165-GO; 97530-GO; A9540; J0456; J0696; J1956; J2185; J2920; J7030; J7050

== ENCOUNTER 2018-12-08 11:33 | Emergency (ER) | payer MEDICARE, BC ==
[2018-12-08 11:56] VITALS: BP 146/61
--- NOTE | 2018-12-08 13:05 | EDM.PDOC ---
ED HPI GENERAL MEDICAL PROBLEM - General Chief Complaint: Respiratory Problem Stated Complaint: COUGH/COLD FOR 3 WEEKS Time Seen by Provider: 12/08/18 12:57 Source of Information: Reports: Patient History Limitations: Reports: No Limitations - History of Present Illness INITIAL COMMENTS - FREE TEXT/NARRATIVE: 68-year-old female presents for evaluation and treatment of a cough and cold symptoms she reports she's been ill for the last 3 weeks. She reports symptoms of a productive cough, feeling feverish, nausea and posttussive emesis. She states that her ears initially did hurt but this is improving. No sore throat. Reports associated headaches and bodyaches. patient had labs done for Dr. Roque today. She was instructed by the clinic to come over to the ER to be seen. patient sees Dr. Roque; she is status post kidney transplant. She is on immunosuppressants for this. - Related Data Allergies Allergy/AdvReac Type Severity Reaction Status Date / Time adhesive Allergy Itching Verified 12/11/18 11:30 latex Allergy Rash Verified 12/11/18 11:30 nickel Allergy Itching Verified 12/11/18 11:30 omeprazole [From Prilosec] Allergy Cannot Verified 12/11/18 11:30 Remember omeprazole magnesium Allergy Hives Verified 12/11/18 11:30 [From Prilosec] Home Meds: Home Meds Acetaminophen 1,000 mg PO Q6HR PRN 07/02/18 [History] Aspirin [Halfprin] 81 mg PO DAILY 07/02/18 [History] Docusate Sodium [Colace] 200 mg PO DAILY PRN 07/02/18 [History] Fluticasone Propionate [Flonase] 50 mcg NASBOTH DAILY PRN 07/02/18 [History] Furosemide [Lasix] 20 mg PO BID 07/02/18 [History] Gabapentin [Neurontin] 200 mg PO DAILY 07/02/18 [History] Insulin Glargine,Hum.Rec.Anlog [Lantus Solostar] 14 units SQ DAILY 07/02/18 [ History] Insulin Lispro [Humalog Kwikpen U-100] 5 - 15 unit SQ QID 07/02/18 [History] Loratadine/Pseudoephedrine [Loratadine-Pseudoephed 10-240] 1 each PO DAILY 07/02 [History] Mycophenolate Mofetil [Cellcept] 500 mg PO BID 07/02/18 [History] Pantoprazole [ProTONIX] 40 mg PO DAILY 07/02/18 [History] Sertraline [Zoloft] 150 mg PO DAILY 07/02/18 [History] Sodium Bicarbonate 1,300 mg PO BID 07/02/18 [History] Sulfamethoxazole/Trimethoprim [Bactrim Ds Tablet] 1 each PO MOWEFR 07/02/18 [ History] atorvaSTATin [Lipitor] 20 mg PO DAILY 07/02/18 [History] predniSONE [Prednisone] 5 mg PO DAILY 07/02/18 [History] Tacrolimus 1.5 mg PO BID 07/03/18 [History] Doxycycline [Vibramycin] 100 mg PO BID #20 cap 12/08/18 [Rx] ALPRAZolam [Xanax] 0.25 mg PO BEDTIME PRN 12/11/18 [History] Cranberry Extract [Cranberry] 360 mg PO DAILY 12/11/18 [History] Estrogens, Conjugated [Premarin Vaginal Crm] 12/11/18 [History] Fosfomycin 3 gm PO ASDIRECTED 12/11/18 [History] Past Medical History HEENT History: Reports: Glaucoma Cardiovascular History: Reports: High Cholesterol Other Respiratory History: in winter time uses inhaler when get a bad cough or cold. Gastrointestinal History: Reports: Cirrhosis Other Gastrointestinal History: liver failure Genitourinary History: Reports: Chronic Renal Insuffiency Other Genitourinary History: dialysis m,w,f, [employer] History: Reports: Neurological History: Reports: Seizure Psychiatric History: Reports: Anxiety, Depression Endocrine/Metabolic History: Reports: Diabetes, Type II, Obesity/BMI 30+ Other Endocrine/Metabolic History: diabetes controlled with diet. Immunologic History: Reports: Solid Organ Transplant Other Immunologic History: Kidney transplant 2 years ago (2016) - Past Surgical History HEENT Surgical History: Reports: Laser Surgery, Tonsillectomy GI Surgical History: Reports: Appendectomy, Cholecystectomy, Colonoscopy, Hernia , Abdominal Female Surgical History: Reports: Other (See Below) Other Female Surgeries/Procedures: kidney transplant Musculoskeletal Surgical History: Reports: Arthroscopic Knee, Knee Replacement Social & Family History - Family History Family Medical History: Noncontributory - Tobacco Use Smoking Status *Q: Never Smoker - Caffeine Use Caffeine Use: Reports: Coffee, Tea - Recreational Drug Use Recreational Drug Use: No ED ROS GENERAL - Review of Systems Review Of Systems: See Below Constitutional: Reports: Fever, Chills, Other (reports bodyaches) Respiratory: Reports: Cough, Sputum, Other (Reports posttussive emesis) GI/Abdominal: Reports: Vomiting (Posttussive) Neurological: Reports: Headache ED EXAM, GENERAL - Physical Exam Exam: See Below Exam Limited By: No Limitations General Appearance: Alert, WD/WN, No Apparent Distress Throat/Mouth: Normal Inspection, Normal Lips, Normal Voice, No Airway Compromise Respiratory/Chest: No Respiratory Distress, Lungs Clear, Normal Breath Sounds Cardiovascular: Normal Peripheral Pulses, Regular Rate, Rhythm, Systolic Murmur (grade 3 ) Neurological: Alert, Oriented, Normal Cognition Psychiatric: Normal Affect, Normal Mood Skin Exam: Warm, Dry, Normal Color Course - Vital Signs Last Recorded V/S: Last Vital Signs Temp 97.8 F 12/08/18 11:54 Pulse 91 12/08/18 11:54 Resp 16 12/08/18 11:54 BP 146/61 H 12/08/18 11:54 Pulse Ox 100 12/08/18 11:54 - Radiology Interpretation Free Text/Narrative:: No acute intrathoracic process appreciated on chest xray. Formal radiology read pending. - Re-Assessments/Exams Free Text/Narrative Re-Assessment/Exam: 12/08/18 14:03 Reviewed the imaging with the patient. Labs from clinic show a normal WBC. CMP pending. UA shows a UTI. Will start antibiotics for UTI and bronchitis. Discharge instructions as documented. Departure - Departure Time of Disposition: 14:07 Disposition: Home, Self-Care 01 Condition: Fair Clinical Impression: Bronchitis - Discharge Information *PRESCRIPTION DRUG MONITORING PROGRAM REVIEWED*: No *COPY OF PRESCRIPTION DRUG MONITORING REPORT IN PATIENT ELVIRA: No Prescriptions: Doxycycline [Vibramycin] 100 mg PO BID #20 cap Instructions: Acute Bronchitis, Adult Referrals: Dave Roque MD [Primary Care Provider] - Forms: ED Department Discharge Additional Instructions: take the doxycycline 1 cap PO bid x 10 days. Take with food. Rest. May take OTC ibuprofen as needed for headaches and fever relief. Please return to the ER should you symptoms change or worsen.
--- NOTE | 2018-12-08 14:31 | CR ---
Chest: Two views of the chest were obtained. Comparison: Prior chest x-ray of 07/02/18. Heart is slightly enlarged. Pulmonary vessels are slightly congested. Lungs otherwise are clear. Degenerative change is noted within the spine. Surgical clips are seen with the upper abdomen. Impression: 1. Findings suspicious for mild CHF. Diagnostic code #3
== END 2018-12-08 14:20 | disposition home or self-care (01) ==
LOC: JD.ED 11:33
DX: J40 Bronchitis, not specified as acute or chronic (principal); E78.00 Pure hypercholesterolemia, unspecified; N18.9 Chronic kidney disease, unspecified; F41.9 Anxiety disorder, unspecified; F32.9 Major depressive disorder, single episode, unspecified; E11.9 Type 2 diabetes mellitus without complications; Z91.040 Latex allergy status; Z88.8 Allergy status to other drugs, medicaments and biological substances; Z91.048 Other nonmedicinal substance allergy status; Z79.82 Long term (current) use of aspirin; Z79.899 Other long term (current) drug therapy; Z79.4 Long term (current) use of insulin
CPT/HCPCS: 71046; 71046-26; 99284

== ENCOUNTER 2019-02-05 14:49 | Emergency (ER) | payer MEDICARE, BC ==
[2019-02-05] MEDS ORDERED: Acetaminophen/HYDROcodone 325-5 MG Tab PO ONE (16:28)
--- NOTE | 2019-02-05 17:19 | CR ---
Left knee: Four views of the left knee were obtained. Comparison: No prior knee exam. Vascular calcification is noted. Bony structures are osteopenic. No fracture, dislocation or other bony abnormality is seen. Impression: 1. Osteopenia and vascular calcification. 2. Nothing acute is appreciated on left knee exam. Diagnostic code #2
--- NOTE | 2019-02-05 17:19 | CR ---
Left ankle: Four views of the left ankle were obtained. Comparison: No previous ankle study. Plantar spur is seen. Vascular calcification is noted. Bony structures are osteopenic. No acute fracture, dislocation or other bony abnormality is seen. Impression: 1. Incidental findings. Nothing acute is seen on left ankle exam. Diagnostic code #2
--- NOTE | 2019-02-05 17:32 | EDM.PDOC ---
ED HPI GENERAL MEDICAL PROBLEM - General Chief Complaint: Lower Extremity Injury/Pain Stated Complaint: FELL ON LT KNEE Time Seen by Provider: 02/05/19 16:19 Source of Information: Reports: Patient, RN Notes Reviewed - History of Present Illness INITIAL COMMENTS - FREE TEXT/NARRATIVE: 68-year-old female slipped on the ice landing on the left knee. He believes this was a fairly direct blow to the left knee. Since her fall she's been having quite severe discomfort left anterior knee worse with motion, worse with weightbearing. She also is having some mild left ankle pain. She did not hit her head. No chest pain or difficulty breathing. Left Knee Pain Score (Numeric/FACES): 10 - Related Data Allergies Allergy/AdvReac Type Severity Reaction Status Date / Time adhesive Allergy Itching Verified 02/05/19 15:30 latex Allergy Rash Verified 02/05/19 15:30 nickel Allergy Itching Verified 02/05/19 15:30 omeprazole [From Prilosec] Allergy Cannot Verified 02/05/19 15:30 Remember omeprazole magnesium Allergy Hives Verified 02/05/19 15:30 [From Prilosec] Home Meds: Home Meds Acetaminophen 1,000 mg PO Q6HR PRN 07/02/18 [History] Aspirin [Halfprin] 81 mg PO DAILY 07/02/18 [History] Docusate Sodium [Colace] 200 mg PO DAILY PRN 07/02/18 [History] Fluticasone Propionate [Flonase] 50 mcg NASBOTH DAILY PRN 07/02/18 [History] Furosemide [Lasix] 20 mg PO BID 07/02/18 [History] Gabapentin [Neurontin] 200 mg PO DAILY 07/02/18 [History] Insulin Glargine,Hum.Rec.Anlog [Lantus Solostar] 14 units SQ DAILY 07/02/18 [ History] Insulin Lispro [Humalog Kwikpen U-100] 5 - 15 unit SQ QID 07/02/18 [History] Loratadine/Pseudoephedrine [Loratadine-Pseudoephed 10-240] 1 each PO DAILY 07/02 [History] Mycophenolate Mofetil [Cellcept] 500 mg PO BID 07/02/18 [History] Pantoprazole [ProTONIX] 40 mg PO DAILY 07/02/18 [History] Sertraline [Zoloft] 150 mg PO DAILY 07/02/18 [History] Sodium Bicarbonate 1,300 mg PO BID 07/02/18 [History] Sulfamethoxazole/Trimethoprim [Bactrim Ds Tablet] 1 each PO MOWEFR 07/02/18 [ History] atorvaSTATin [Lipitor] 20 mg PO DAILY 07/02/18 [History] predniSONE [Prednisone] 5 mg PO DAILY 07/02/18 [History] Tacrolimus 1.5 mg PO BID 07/03/18 [History] Doxycycline [Vibramycin] 100 mg PO BID #20 cap 12/08/18 [Rx] ALPRAZolam [Xanax] 0.25 mg PO BEDTIME PRN 12/11/18 [History] Cranberry Extract [Cranberry] 360 mg PO DAILY 12/11/18 [History] Estrogens, Conjugated [Premarin Vaginal Crm] 12/11/18 [History] Fosfomycin 3 gm PO ASDIRECTED 12/11/18 [History] Past Medical History HEENT History: Reports: Glaucoma Cardiovascular History: Reports: High Cholesterol Respiratory History: Reports: Asthma Other Respiratory History: in winter time uses inhaler when get a bad cough or cold. Gastrointestinal History: Reports: Cirrhosis, Hepatitis Other Gastrointestinal History: liver failure Genitourinary History: Reports: Chronic Renal Insuffiency Other Genitourinary History: dialysis m,w,f. Kidney transplant 08/10/2016. 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 Hematologic History: Reports: Anemia, Blood Transfusion(s), Iron Deficiency, Other (See Below) Other Hematologic History: iron transfusions. Immunologic History: Reports: Solid Organ Transplant Other Immunologic History: Kidney transplant 2 years ago (2016) - Infectious Disease History Infectious Disease History: Reports: Chicken Pox, Hepatitis C, Measles, Shingles , Other (See Below) Other Infectious Disease History: food related Hepatitis - Past Surgical History HEENT Surgical History: Reports: Laser Surgery, Tonsillectomy GI Surgical History: Reports: Appendectomy, Cholecystectomy, Colonoscopy, Hernia , Abdominal Female Surgical History: Reports: Hysterectomy, Other (See Below) Other Female Surgeries/Procedures: kidney transplant Musculoskeletal Surgical History: Reports: Arthroscopic Knee, Knee Replacement Social & Family History - Family History Family Medical History: Noncontributory - Tobacco Use Smoking Status *Q: Never Smoker Second Hand Smoke Exposure: No - Caffeine Use Caffeine Use: Reports: Coffee - Recreational Drug Use Recreational Drug Use: No Review of Systems - Review of Systems Review Of Systems: See Below Constitutional: Reports: No Symptoms Eyes: Reports: No Symptoms Ears: Reports: No Symptoms Nose: Reports: No Symptoms Mouth/Throat: Reports: No Symptoms Respiratory: Denies: Shortness of Breath, Pleuritic Chest Pain Cardiovascular: Denies: Chest Pain GI/Abdominal: Denies: Abdominal Pain, Nausea, Vomiting Musculoskeletal: Reports: Joint Pain (Left knee, left ankle) Skin: Reports: Other (Small abrasion left knee) Neurological: Denies: Numbness, Tingling, Weakness ED EXAM, GENERAL - Physical Exam Exam: See Below General Appearance: Alert, Mild Distress Eye Exam: Bilateral Eye: PERRL Ears: Normal External Exam Nose: Normal Inspection Throat/Mouth: Normal Inspection Head: Atraumatic Neck: Supple Respiratory/Chest: No Respiratory Distress, Lungs Clear, Normal Breath Sounds, Chest Non-Tender Cardiovascular: Regular Rate, Rhythm Extremities: Joint Swelling (Mild swelling moderate tenderness left knee, mild pain with motion, mild tenderness and swelling left lateral ankle) Neurological: Alert, Oriented, No Motor/Sensory Deficits Skin Exam: Warm, Dry, Normal Color Course - Vital Signs Last Recorded V/S: Last Vital Signs Temp 98.6 F 02/05/19 15:33 Pulse 74 02/05/19 15:33 Resp 18 02/05/19 15:33 BP Pulse Ox 96 02/05/19 15:33 - Orders/Labs/Meds Meds: Medications Discontinued Medications Generic Name Dose Route Start Last Admin Trade Name Freq PRN Reason Stop Dose Admin Hydrocodone Bitart/Acetaminophen 1 tab 02/05/19 16:28 02/05/19 16:51 [place] 325-5 Mg PO 02/05/19 16:29 1 tab ONETIME ONE Administration - Re-Assessments/Exams Free Text/Narrative Re-Assessment/Exam: 02/06/19 11:21 X-rays did not show any visible fracture, discharge instructions as documented. Departure - Departure Time of Disposition: 17:30 Disposition: Home, Self-Care 01 Condition: Fair Clinical Impression: Fall Qualifiers: Encounter type: initial encounter Qualified Code(s): W19.XXXA - Unspecified fall, initial encounter Contusion of knee, left Qualifiers: Encounter type: initial encounter Qualified Code(s): S80.02XA - Contusion of left knee, initial encounter Left ankle sprain Qualifiers: Encounter type: initial encounter Involved ligament of ankle: unspecified ligament Qualified Code(s): S93.402A - Sprain of unspecified ligament of left ankle, initial encounter - Discharge Information Instructions: Contusion, [id number] Referrals: Dave Roque MD [Primary Care Provider] - Forms: ED Department Discharge Additional Instructions: Bird wrap left knee, ice packs and elevation for swelling, rest and knee and leg is much as possible until pain resolving, you may take Tylenol 2-3 times daily as needed for pain. Use walker until pain resolving follow-up clinic if not much better within 3-5 days as expected, return to ED as needed.
== END 2019-02-05 17:45 | disposition home or self-care (01) ==
LOC: JD.ED 14:49
DX: S93.402A Sprain of unspecified ligament of left ankle, initial encounter (principal); S80.02XA Contusion of left knee, initial encounter; E78.00 Pure hypercholesterolemia, unspecified; J45.909 Unspecified asthma, uncomplicated; F41.9 Anxiety disorder, unspecified; F32.9 Major depressive disorder, single episode, unspecified; E11.22 Type 2 diabetes mellitus with diabetic chronic kidney disease; N18.6 End stage renal disease; Z99.2 Dependence on renal dialysis; Z88.8 Allergy status to other drugs, medicaments and biological substances; Z91.040 Latex allergy status; Z79.82 Long term (current) use of aspirin; Z79.899 Other long term (current) drug therapy; W00.0XXA Fall on same level due to ice and snow, initial encounter; Z79.4 Long term (current) use of insulin
CPT/HCPCS: 73564; 73610; 99283; A9270

== ENCOUNTER 2019-08-27 16:43 | Inpatient (IN) | payer MEDICARE, BC ==
[2019-08-27] MEDS ORDERED: Sodium Chloride 0.9% 1,000 ML IV STA (16:48)
[2019-08-27] MEDS ORDERED: Sodium Chloride 0.9% 10 ML Syringe FLUSH PRN (16:48)
[2019-08-27 16:53] VITALS: PULSE 90
--- NOTE | 2019-08-27 17:27 | CT ---
Head CT Technique: Multiple axial sections through the brain were obtained. Intravenous contrast was not utilized. Comparison: Previous head CT is not available, previous MRI brain of 06/19/13 is available. Findings: Ventricles along with basal cisterns and sulci over the convexities are mildly prominent. Defects are noted symmetrically within the posterior upper skull which presumably is due to previous jong holes. No abnormal parenchymal densities are seen. No evidence of intracranial hemorrhage. No midline shift or mass effect is seen. Mild atherosclerotic calcification is seen within the vertebral vessels as well as within the carotid siphon. Bone window settings showed no acute calvarial abnormality. Visualized mastoid sinuses and paranasal sinuses are clear. Impression: 1. Mild generalized atrophy. Presumed old jong holes within the upper posterior skull. 2. Atherosclerotic calcification within the vertebral vessels and carotid siphon. 3. Nothing acute is appreciated on noncontrast head CT exam. Note: If patient's symptoms warrant further evaluation, MRI could then be considered. Diagnostic code #2
[2019-08-27] MEDS ORDERED: cefTRIAXone 2 GM in Sodium Chloride 0.9% 100 ML IV ONE (17:34)
--- NOTE | 2019-08-27 17:45 | EDM.PDOC ---
ED HPI GENERAL MEDICAL PROBLEM - General Chief Complaint: Neurological Problem Stated Complaint: [facility] Time Seen by Provider: 08/27/19 16:48 Source of Information: Reports: Patient, EMS, Family History Limitations: Reports: Altered Mental Status - History of Present Illness INITIAL COMMENTS - FREE TEXT/NARRATIVE: The patient presents by [facility] for confusion. She has a history of renal transplant in 2016. She is on rejection medications. She is home alone the past couple days and no one has heard from her. Family had police do a welfare check along with EMS and they found her in bed confused. She did not know who she was, where she was or the day. She did not feel warm. She denied having pain anywhere. She had no cough. Onset: Gradual Duration: Day(s): Severity: Moderate Improves with: Reports: None Worsens with: Reports: None Associated Symptoms: Reports: Weakness. Denies: Chest Pain, Cough, Headaches, Shortness of Breath - Related Data Allergies Allergy/AdvReac Type Severity Reaction Status Date / Time adhesive Allergy Itching Verified 06/18/19 23:45 latex Allergy Rash Verified 06/18/19 23:45 nickel Allergy Itching Verified 06/18/19 23:45 omeprazole [From Prilosec] Allergy Cannot Verified 06/18/19 23:45 Remember omeprazole magnesium Allergy Hives Verified 06/18/19 23:45 [From Prilosec] calcium sodium alginate Allergy Cannot Uncoded 04/18/19 15:09 Remember Home Meds: Home Meds Acetaminophen 1,000 mg PO Q6HR PRN 07/02/18 [History] Aspirin [Halfprin] 81 mg PO DAILY 07/02/18 [History] Docusate Sodium [Colace] 200 mg PO DAILY PRN 07/02/18 [History] Fluticasone Propionate [Flonase] 50 mcg NASBOTH DAILY PRN 07/02/18 [History] Furosemide [Lasix] 20 mg PO BID 07/02/18 [History] Gabapentin [Neurontin] 200 mg PO DAILY 07/02/18 [History] Insulin Glargine,Hum.Rec.Anlog [Lantus Solostar] 14 units SQ DAILY 07/02/18 [ History] Insulin Lispro [Humalog Kwikpen U-100] 5 - 15 unit SQ QID 07/02/18 [History] Loratadine/Pseudoephedrine [Loratadine-Pseudoephed 10-240] 1 each PO DAILY 07/02 [History] Mycophenolate Mofetil [Cellcept] 500 mg PO BID 07/02/18 [History] Pantoprazole [ProTONIX] 40 mg PO DAILY 07/02/18 [History] Sertraline [Zoloft] 150 mg PO DAILY 07/02/18 [History] Sodium Bicarbonate 1,300 mg PO BID 07/02/18 [History] Sulfamethoxazole/Trimethoprim [Bactrim Ds Tablet] 1 each PO MOWEFR 07/02/18 [ History] atorvaSTATin [Lipitor] 20 mg PO DAILY 07/02/18 [History] predniSONE [Prednisone] 5 mg PO DAILY 07/02/18 [History] Tacrolimus 1.5 mg PO BID 07/03/18 [History] Doxycycline [Vibramycin] 100 mg PO BID #20 cap 12/08/18 [Rx] ALPRAZolam [Xanax] 0.25 mg PO BEDTIME PRN 12/11/18 [History] Cranberry Extract [Cranberry] 360 mg PO DAILY 12/11/18 [History] Estrogens, Conjugated [Premarin Vaginal Crm] 12/11/18 [History] Fosfomycin 3 gm PO ASDIRECTED 12/11/18 [History] Cephalexin [Keflex] 500 mg PO BID #14 capsule 06/19/19 [Rx] Past Medical History HEENT History: Reports: Glaucoma Cardiovascular History: Reports: High Cholesterol Respiratory History: Reports: Asthma Other Respiratory History: in winter time uses inhaler when get a bad cough or cold. Gastrointestinal History: Reports: Cirrhosis, Hepatitis Other Gastrointestinal History: liver failure Genitourinary History: Reports: Chronic Renal Insuffiency Other Genitourinary History: dialysis m,w,f. 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 Hematologic History: Reports: Anemia, Blood Transfusion(s), Iron Deficiency, Other (See Below) Other Hematologic History: iron transfusions. Immunologic History: Reports: Solid Organ Transplant Other Immunologic History: Kidney transplant 2 years ago (2015) - Infectious Disease History Infectious Disease History: Reports: Chicken Pox, Hepatitis C, Measles, Shingles , Other (See Below) Other Infectious Disease History: food related Hepatitis - Past Surgical History HEENT Surgical History: Reports: Laser Surgery, Tonsillectomy GI Surgical History: Reports: Appendectomy, Cholecystectomy, Colonoscopy, Hernia , Abdominal Female Surgical History: Reports: Hysterectomy, Other (See Below) Other Female Surgeries/Procedures: kidney transplant Musculoskeletal Surgical History: Reports: Arthroscopic Knee, Knee Replacement Social & Family History - Family History Family Medical History: Noncontributory - Tobacco Use Smoking Status *Q: Never Smoker Second Hand Smoke Exposure: No - Caffeine Use Caffeine Use: Reports: Coffee - Recreational Drug Use Recreational Drug Use: No ED ROS GENERAL - Review of Systems Review Of Systems: See Below Constitutional: Reports: No Symptoms HEENT: Reports: No Symptoms Respiratory: Reports: No Symptoms Cardiovascular: Reports: No Symptoms Endocrine: Reports: No Symptoms GI/Abdominal: Reports: No Symptoms Musculoskeletal: Reports: No Symptoms Neurological: Reports: Confusion ED EXAM, NEURO - Physical Exam Exam: See Below Exam Limited By: Altered Mental Status General Appearance: Alert, No Apparent Distress Ears: Normal External Exam Nose: Normal Inspection Head Exam: Atraumatic, Normocephalic Neck: Normal Inspection Respiratory/Chest: No Respiratory Distress, Lungs Clear, Normal Breath Sounds Cardiovascular: Regular Rate, Rhythm, No Edema, No Murmur GI/Abdominal: Soft, Non-Tender, No Organomegaly, No Mass Neurological: Alert, Other (Confused) Course - Vital Signs Last Recorded V/S: Last Vital Signs Temp 98.9 F 08/27/19 16:48 Pulse 90 08/27/19 16:48 Resp 20 08/27/19 16:48 BP 91/50 L 08/27/19 16:48 Pulse Ox 100 08/27/19 16:48 - Orders/Labs/Meds Orders: Active Orders 24 hr Category Date Time Status Influenza Vaccine Charge [RC] .DISCHARGE Care 08/27/19 17:34 Active Insert Alberto Catheter [Insert Urinary Catheter] [OM.PC] Care 08/27/19 17:45 Ordered Stat Oxygen Therapy Adult [Oxygen Therapy, ED] [RC] Care 08/27/19 18:28 Active ASDIRECTED Peripheral IV Care [RC] . DIRECTED Care 08/27/19 16:49 Active Urinary Catheter Assessment [RC] ASDIRECTED Care 08/27/19 17:45 Active Chest 1V Frontal [CR] Stat Exams 08/27/19 16:48 Taken CULTURE BLOOD [BC] Stat Lab 08/27/19 16:51 Ordered CULTURE BLOOD [BC] Stat Lab 08/27/19 17:39 Received CULTURE URINE [RM] Stat Lab 08/27/19 18:27 Ordered Sodium Chloride 0.9% [Saline Flush] Med 08/27/19 16:48 Active 10 ml FLUSH ASDIRECTED PRN Blood Culture x2 Reflex Set [OM.PC] Stat Oth 08/27/19 16:48 Ordered Peripheral IV Insertion Adult [OM.PC] Stat Oth 08/27/19 16:48 Ordered Medication Orders Sodium Chloride (Saline Flush) 10 ml FLUSH ASDIRECTED PRN PRN Reason: Keep Vein Open Last Admin: 08/27/19 17:35 Dose: 10 ml Labs: Laboratory Tests 08/27/19 08/27/19 08/27/19 Range/Units 16:52 16:52 17:39 WBC 15.58 H (3.98-10.04) K/mm3 RBC 4.77 (3.98-5.22) M/mm3 Hgb 13.2 (11.2-15.7) gm/dl Hct 42.2 (34.1-44.9) % MCV 88.5 (79.4-94.8) fl MCH 27.7 (25.6-32.2) pg MCHC 31.3 L (32.2-35.5) g/dl RDW Std Deviation 51.0 H (36.4-46.3) fL Plt Count 196 (182-369) K/mm3 MPV 10.0 (9.4-12.3) fl Neut % (Auto) 85.2 H (34.0-71.1) % Lymph % (Auto) 6.2 L (19.3-51.7) % Traill % (Auto) 7.1 (4.7-12.5) % Eos % (Auto) 0.6 L (0.7-5.8) Baso % (Auto) 0.1 (0.1-1.2) % Neut # (Auto) 13.30 H (1.56-6.13) K/mm3 Lymph # (Auto) 0.96 L (1.18-3.74) K/mm3 Traill # (Auto) 1.10 H (0.24-0.36) K/mm3 Eos # (Auto) 0.09 (0.04-0.36) K/mm3 Baso # (Auto) 0.01 (0.01-0.08) K/mm3 Manual Slide Review Abnormal smear Sodium 143 (136-145) mEq/L Potassium 4.7 (3.5-5.1) mEq/L Chloride 106 (98-107) mEq/L Carbon Dioxide 26 (21-32) mEq/L Anion Gap 15.7 H (5-15) BUN 50 H (7-18) mg/dL Creatinine 1.7 H (0.55-1.02) mg/dL Est Cr Clr Drug Dosing 24.35 mL/min Estimated GFR (MDRD) 30 (>60) mL/min BUN/Creatinine Ratio 29.4 H (14-18) Glucose 231 H (80-115) mg/dL Lactic Acid 2.8 H (0.4-2.0) mmol/L Calcium 9.0 (8.5-10.1) mg/dL Magnesium 2.0 (1.8-2.4) mg/dl Total Bilirubin 0.8 (0.2-1.0) mg/dL AST 10 L (15-37) U/L ALT 12 L (14-59) U/L Alkaline Phosphatase 83 (46-116) U/L Troponin I 0.035 (0.00-0.056) ng/mL Total Protein 6.3 L (6.4-8.2) g/dl Albumin 2.8 L (3.4-5.0) g/dl Globulin 3.5 gm/dL Albumin/Globulin Ratio 0.8 L (1-2) Urine Color (Yellow) Urine Appearance (Clear) Urine pH (5.0-8.0) Ur Specific [place] (1.005-1.030) Urine Protein (Negative) Urine Glucose (UA) (Negative) Urine Ketones (Negative) Urine Occult Blood (Negative) Urine Nitrite (Negative) Urine Bilirubin (Negative) Urine Urobilinogen (0.2-1.0) Ur Leukocyte Esterase (Negative) Urine RBC (0-5) /hpf Urine WBC (0-5) /hpf Ur Squamous Epith Cells (0-5) /hpf Urine Bacteria (FEW) /hpf Urine Mucus (FEW) /hpf 08/27/19 Range/Units 17:45 WBC (3.98-10.04) K/mm3 RBC (3.98-5.22) M/mm3 Hgb (11.2-15.7) gm/dl Hct (34.1-44.9) % MCV (79.4-94.8) fl MCH (25.6-32.2) pg MCHC (32.2-35.5) g/dl RDW Std Deviation (36.4-46.3) fL Plt Count (182-369) K/mm3 MPV (9.4-12.3) fl Neut % (Auto) (34.0-71.1) % Lymph % (Auto) (19.3-51.7) % [place] % (Auto) (4.7-12.5) % Eos % (Auto) (0.7-5.8) Baso % (Auto) (0.1-1.2) % Neut # (Auto) (1.56-6.13) K/mm3 Lymph # (Auto) (1.18-3.74) K/mm3 [place] # (Auto) (0.24-0.36) K/mm3 Eos # (Auto) (0.04-0.36) K/mm3 Baso # (Auto) (0.01-0.08) K/mm3 Manual Slide Review Sodium (136-145) mEq/L Potassium (3.5-5.1) mEq/L Chloride (98-107) mEq/L Carbon Dioxide (21-32) mEq/L Anion Gap (5-15) BUN (7-18) mg/dL Creatinine (0.55-1.02) mg/dL Est Cr Clr Drug Dosing mL/min Estimated GFR (MDRD) (>60) mL/min BUN/Creatinine Ratio (14-18) Glucose (80-115) mg/dL Lactic Acid (0.4-2.0) mmol/L Calcium (8.5-10.1) mg/dL Magnesium (1.8-2.4) mg/dl Total Bilirubin (0.2-1.0) mg/dL AST (15-37) U/L ALT (14-59) U/L Alkaline Phosphatase (46-116) U/L Troponin I (0.00-0.056) ng/mL Total Protein (6.4-8.2) g/dl Albumin (3.4-5.0) g/dl Globulin gm/dL Albumin/Globulin Ratio (1-2) Urine Color Yellow (Yellow) Urine Appearance Clear (Clear) Urine pH 6.5 (5.0-8.0) Ur Specific [place] 1.015 (1.005-1.030) Urine Protein 1+ H (Negative) Urine Glucose (UA) Negative (Negative) Urine Ketones 1+ H (Negative) Urine Occult Blood 1+ H (Negative) Urine Nitrite Negative (Negative) Urine Bilirubin 2+ H (Negative) Urine Urobilinogen 1.0 (0.2-1.0) Ur Leukocyte Esterase 1+ H (Negative) Urine RBC 5-10 H (0-5) /hpf Urine WBC 10-20 H (0-5) /hpf Ur Squamous Epith Cells 0-5 (0-5) /hpf Urine Bacteria Moderate H (FEW) /hpf Urine Mucus Few (FEW) /hpf Meds: Medications Generic Name Dose Route Start Last Admin Trade Name Freq PRN Reason Stop Dose Admin Sodium Chloride 10 ml 08/27/19 16:48 08/27/19 17:35 Saline Flush FLUSH 10 ml ASDIRECTED PRN Administration Keep Vein Open Discontinued Medications Generic Name Dose Route Start Last Admin Trade Name Freq PRN Reason Stop Dose Admin Sodium Chloride 1,000 mls @ 1,000 mls/hr 08/27/19 16:48 08/27/19 17:45 Normal Saline IV 08/27/19 17:47 1,000 mls/hr .BOLUS STA Administration Ceftriaxone Sodium 2 gm/ 100 mls @ 200 mls/hr 08/27/19 17:34 08/27/19 18:02 Sodium Chloride IV 08/27/19 18:03 200 mls/hr ONETIME ONE Administration Influenza Virus Vaccine 1 each 08/27/19 17:34 Pharmacy To Dose - Influenza Vaccine IM 08/27/19 17:35 ONETIME ONE Influenza Virus Vaccine 180 mcg 08/27/19 17:45 Fluzone High-Dose 2019-20 Syringe IM 08/27/19 17:46 .ONCE ONE - Re-Assessments/Exams Free Text/Narrative Re-Assessment/Exam: 08/27/19 19:03 I ordered an IV NS 1L bolus, EKG, CT of her head, labs, blood cultures and lactic acid. Her CT shows mild generalized atrophy. Presumed old jong holes within the upper posterior skull. Atherosclerotic calcification within the vertebral vessels and carotic siphon. Nothing acute is appreciated on noncontrast head CT exam. Her CXR shows nothing acute. Her WBC is elevated at 15.58. Her creatinine is elevated at 1.7. Her glucose is elevated at 231. Her lactic acid is elevated at 2.8. She is uroseptic. I have blood cultures cooking She is on rejection meds. I talked with my hospitalist Dr Avina and he felt the patient would be more appropriate in [place]. I called [facility] in [place] and Dr Cooper accepted. There is an issue with transportation. The roads are icing up and EMS cannot go. Flight is on hold for 4 hours. I will have to admit here. Family did talk to my nurse and they would like her to go to [facility] in [place]. I called there and they would like a call in the morning. Dr Avina will admit this morning. Departure - Departure Time of Disposition: 19:15 Disposition: Admitted As Inpatient 64 Condition: Serious Clinical Impression: Confusion UTI (urinary tract infection) Qualifiers: Urinary tract infection type: site unspecified Hematuria presence: without hematuria Qualified Code(s): N39.0 - Urinary tract infection, site not specified Sepsis Qualifiers: Sepsis type: sepsis due to unspecified organism Sepsis acute organ dysfunction status: unspecified Qualified Code(s): A41.9 - Sepsis, unspecified organism - Discharge Information Referrals: PCP,None [Primary Care Provider] - Forms: ED Department Discharge - My Orders Last 24 Hours: My Active Orders 08/27/19 16:48 Chest 1V Frontal [CR] Stat Sodium Chloride 0.9% [Saline Flush] 10 ml FLUSH ASDIRECTED PRN Blood Culture x2 Reflex Set [OM.PC] Stat Peripheral IV Insertion Adult [OM.PC] Stat 08/27/19 16:49 Peripheral IV Care [RC] . DIRECTED 08/27/19 16:51 CULTURE BLOOD [BC] Stat 08/27/19 17:34 Influenza Vaccine Charge [RC] .DISCHARGE 08/27/19 17:39 CULTURE BLOOD [BC] Stat 08/27/19 17:45 Insert Alberto Catheter [Insert Urinary Catheter] [OM.PC] Stat Urinary Catheter Assessment [RC] ASDIRECTED 08/27/19 18:27 CULTURE URINE [RM] Stat 08/27/19 18:28 Oxygen Therapy Adult [Oxygen Therapy, ED] [RC] ASDIRECTED - Assessment/Plan Last 24 Hours: My Active Orders 08/27/19 16:48 Chest 1V Frontal [CR] Stat Sodium Chloride 0.9% [Saline Flush] 10 ml FLUSH ASDIRECTED PRN Blood Culture x2 Reflex Set [OM.PC] Stat Peripheral IV Insertion Adult [OM.PC] Stat 08/27/19 16:49 Peripheral IV Care [RC] . DIRECTED 08/27/19 16:51 CULTURE BLOOD [BC] Stat 08/27/19 17:34 Influenza Vaccine Charge [RC] .DISCHARGE 08/27/19 17:39 CULTURE BLOOD [BC] Stat 08/27/19 17:45 Insert Alberto Catheter [Insert Urinary Catheter] [OM.PC] Stat Urinary Catheter Assessment [RC] ASDIRECTED 08/27/19 18:27 CULTURE URINE [RM] Stat 08/27/19 18:28 Oxygen Therapy Adult [Oxygen Therapy, ED] [RC] ASDIRECTED
[2019-08-27] MEDS ORDERED: Pantoprazole 40 MG Vial IVPUSH ONE (19:21)
[2019-08-27] MEDS ORDERED: Pantoprazole 80 MG in Sodium Chloride 0.9% 100 ML IV SCH (19:30)
[2019-08-27] MEDS: Lactated Ringers 1,000 ML IV SCH (19:40)
[2019-08-27] MEDS ORDERED: Ondansetron 4 MG/2 ML SDV IV PRN (20:48)
[2019-08-27] MEDS ORDERED: Insulin Glarg,Human.Rec.Analog 100 UNIT/ML ML SUBCUT SCH ×2 (21:00)
[2019-08-27] MEDS: predniSONE 5 MG Tab PO SCH (21:24)
[2019-08-27] MEDS: Insulin Lispro 100 Units/ML 3 ML Vial SUBCUT SCH (21:25)
--- NOTE | 2019-08-27 23:09 | PCM.HP.2 ---
H&P History of Present Illness - General Date of Service: 08/27/19 Admit Problem/Dx: Admission Diagnosis/Problem Admission Diagnosis/Problem Urosepsis - History of Present Illness Initial Comments - Free Text/Narative: 68-year-old female with kidney transplant was brought into the emergency room by EMS after being found by the police at home during a welfare check. Family had not heard from her for couple of days and when they did she was confused. She was found in her bedroom unable to say where she was. Patient was unable to give me a history so history was obtained through emergency room physician and his notes. Also we did not have an updated med list. In the emergency room patient was given a liter bolus of normal saline, EKG, head CT, labs, blood cultures, and lactic acid. Head CT showed mild generalized atrophy. Presumed old jong holes within the upper posterior skull. Atherosclerotic calcification within the vertebral vessels and carotid siphon. Nothing acute is appreciated on noncontrast head CT. Chest x-ray showed nothing acute. White count was 15.58 with a lactic acid of 2.8. Creatinine was 1.7. BUN 50, anion gap 15.7, UA 10-20 WBCs with moderate bacteria and only 0-5 epithelial cells. 1+ protein. She is on antirejection medications for her kidney transplant. It was felt patient would be best served by going to [place] with they have higher level of care. Unfortunately, the weather provided transport to [place] for this evening so we admitted her to the ICU. Also in the emergency room the nurse did a rectal temperature which was normal. She did note black stools and an occult blood sample was obtained which was positive. She was started given a Protonix bolus and then started on a Protonix drip. - Related Data Allergies/Adverse Reactions: Allergies Allergy/AdvReac Type Severity Reaction Status Date / Time adhesive Allergy Itching Verified 06/18/19 23:45 latex Allergy Rash Verified 06/18/19 23:45 nickel Allergy Itching Verified 06/18/19 23:45 omeprazole [From Prilosec] Allergy Cannot Verified 06/18/19 23:45 Remember omeprazole magnesium Allergy Hives Verified 06/18/19 23:45 [From Prilosec] calcium sodium alginate Allergy Cannot Uncoded 04/18/19 15:09 Remember Home Medications: Home Meds Acetaminophen 1,000 mg PO Q6HR PRN 07/02/18 [History] Aspirin [Halfprin] 81 mg PO DAILY 07/02/18 [History] Docusate Sodium [Colace] 200 mg PO DAILY PRN 07/02/18 [History] Fluticasone Propionate [Flonase] 50 mcg NASBOTH DAILY PRN 07/02/18 [History] Furosemide [Lasix] 20 mg PO BID 07/02/18 [History] Gabapentin [Neurontin] 200 mg PO DAILY 07/02/18 [History] Insulin Glargine,Hum.Rec.Anlog [Lantus Solostar] 14 units SQ DAILY 07/02/18 [ History] Insulin Lispro [Humalog Kwikpen U-100] 5 - 15 unit SQ QID 07/02/18 [History] Loratadine/Pseudoephedrine [Loratadine-Pseudoephed 10-240] 1 each PO DAILY 07/02 [History] Mycophenolate Mofetil [Cellcept] 500 mg PO BID 07/02/18 [History] Pantoprazole [ProTONIX] 40 mg PO DAILY 07/02/18 [History] Sertraline [Zoloft] 150 mg PO DAILY 07/02/18 [History] Sodium Bicarbonate 1,300 mg PO BID 07/02/18 [History] Sulfamethoxazole/Trimethoprim [Bactrim Ds Tablet] 1 each PO MOWEFR 07/02/18 [ History] atorvaSTATin [Lipitor] 20 mg PO DAILY 07/02/18 [History] predniSONE [Prednisone] 5 mg PO DAILY 07/02/18 [History] Tacrolimus 1.5 mg PO BID 07/03/18 [History] Doxycycline [Vibramycin] 100 mg PO BID #20 cap 12/08/18 [Rx] ALPRAZolam [Xanax] 0.25 mg PO BEDTIME PRN 12/11/18 [History] Cranberry Extract [Cranberry] 360 mg PO DAILY 12/11/18 [History] Estrogens, Conjugated [Premarin Vaginal Crm] 12/11/18 [History] Fosfomycin 3 gm PO ASDIRECTED 12/11/18 [History] Cephalexin [Keflex] 500 mg PO BID #14 capsule 06/19/19 [Rx] Past Medical History HEENT History: Reports: Glaucoma Cardiovascular History: Reports: High Cholesterol Respiratory History: Reports: Asthma Other Respiratory History: in winter time uses inhaler when get a bad cough or cold. Gastrointestinal History: Reports: Cirrhosis, Hepatitis Other Gastrointestinal History: liver failure Genitourinary History: Reports: Chronic Renal Insuffiency Other Genitourinary History: dialysis m,w,f. Kidney transplant 08/10/2016. [employer] History: Reports: Neurological History: Reports: Migraines, Seizure Psychiatric History: Reports: Anxiety, Depression Endocrine/Metabolic History: Reports: Diabetes, Type II, Obesity/BMI 30+ Other Endocrine/Metabolic History: diabetes controlled with diet. Hematologic History: Reports: Anemia, Blood Transfusion(s), Iron Deficiency, Other (See Below) Other Hematologic History: iron transfusions. Immunologic History: Reports: Solid Organ Transplant Other Immunologic History: Kidney transplant 2 years ago (2015) - Infectious Disease History Infectious Disease History: Reports: Chicken Pox, Hepatitis C, Measles, Shingles , Other (See Below) Other Infectious Disease History: food related Hepatitis - Past Surgical History HEENT Surgical History: Reports: Laser Surgery, Tonsillectomy GI Surgical History: Reports: Appendectomy, Cholecystectomy, Colonoscopy, Hernia , Abdominal Female Surgical History: Reports: Hysterectomy, Other (See Below) Other Female Surgeries/Procedures: kidney transplant Musculoskeletal Surgical History: Reports: Arthroscopic Knee, Knee Replacement Social & Family History - Family History Family Medical History: Noncontributory - Tobacco Use Smoking Status *Q: Never Smoker Second Hand Smoke Exposure: No - Caffeine Use Caffeine Use: Reports: Coffee - Recreational Drug Use Recreational Drug Use: No H&P Review of Systems - Review of Systems: Review Of Systems: ROS reveals no pertinent complaints other than HPI. Exam - Exam Exam: See Below - Vital Signs Vital Signs: Last Vital Signs Temp 97.1 F 08/27/19 20:46 Pulse 90 08/27/19 16:48 Resp 15 08/27/19 20:46 BP 126/60 08/27/19 20:46 Pulse Ox 99 08/27/19 20:54 Weight: 177 lb 0.499 oz - Exam General: Mild Distress, Other (Disorientation) Neck: Supple, Trachea Midline, 2 Lungs: Clear to Auscultation, Normal Respiratory Effort Cardiovascular: Regular Rate, Regular Rhythm GI/Abdominal Exam: Normal Bowel Sounds, Soft, Non-Tender, No Organomegaly, No Distention, No Abnormal Bruit, No Mass, Pelvis Stable Extremities: Normal Inspection, Normal Range of Motion, Non-Tender, No Pedal Edema, Normal Capillary Refill Skin: Warm, Dry, Intact Neuro Extensive - Mental Status: Disorientation to Place, Disorientation to Time Neuro Extensive - Motor, Sensory, Reflexes: CN II-XII Intact - Patient Data Lab Results Last 24 hrs: Laboratory Results - last 24 hr 08/27/19 08/27/19 08/27/19 Range/Units 16:52 16:52 17:39 WBC 15.58 H (3.98-10.04) K/mm3 RBC 4.77 (3.98-5.22) M/mm3 Hgb 13.2 (11.2-15.7) gm/dl Hct 42.2 (34.1-44.9) % MCV 88.5 (79.4-94.8) fl MCH 27.7 (25.6-32.2) pg MCHC 31.3 L (32.2-35.5) g/dl RDW Std Deviation 51.0 H (36.4-46.3) fL Plt Count 196 (182-369) K/mm3 MPV 10.0 (9.4-12.3) fl Neut % (Auto) 85.2 H (34.0-71.1) % Lymph % (Auto) 6.2 L (19.3-51.7) % [place] % (Auto) 7.1 (4.7-12.5) % Eos % (Auto) 0.6 L (0.7-5.8) Baso % (Auto) 0.1 (0.1-1.2) % Neut # (Auto) 13.30 H (1.56-6.13) K/mm3 Lymph # (Auto) 0.96 L (1.18-3.74) K/mm3 [place] # (Auto) 1.10 H (0.24-0.36) K/mm3 Eos # (Auto) 0.09 (0.04-0.36) K/mm3 Baso # (Auto) 0.01 (0.01-0.08) K/mm3 Manual Slide Review Abnormal smear Sodium 143 (136-145) mEq/L Potassium 4.7 (3.5-5.1) mEq/L Chloride 106 (98-107) mEq/L Carbon Dioxide 26 (21-32) mEq/L Anion Gap 15.7 H (5-15) BUN 50 H (7-18) mg/dL Creatinine 1.7 H (0.55-1.02) mg/dL Est Cr Clr Drug Dosing 24.35 mL/min Estimated GFR (MDRD) 30 (>60) mL/min BUN/Creatinine Ratio 29.4 H (14-18) Glucose 231 H (80-115) mg/dL POC Glucose (80-115) mg/dL Lactic Acid 2.8 H (0.4-2.0) mmol/L Calcium 9.0 (8.5-10.1) mg/dL Magnesium 2.0 (1.8-2.4) mg/dl Total Bilirubin 0.8 (0.2-1.0) mg/dL AST 10 L (15-37) U/L ALT 12 L (14-59) U/L Alkaline Phosphatase 83 (46-116) U/L Troponin I 0.035 (0.00-0.056) ng/mL Total Protein 6.3 L (6.4-8.2) g/dl Albumin 2.8 L (3.4-5.0) g/dl Globulin 3.5 gm/dL Albumin/Globulin Ratio 0.8 L (1-2) Urine Color (Yellow) Urine Appearance (Clear) Urine pH (5.0-8.0) Ur Specific [place] (1.005-1.030) Urine Protein (Negative) Urine Glucose (UA) (Negative) Urine Ketones (Negative) Urine Occult Blood (Negative) Urine Nitrite (Negative) Urine Bilirubin (Negative) Urine Urobilinogen (0.2-1.0) Ur Leukocyte Esterase (Negative) Urine RBC (0-5) /hpf Urine WBC (0-5) /hpf Ur Squamous Epith Cells (0-5) /hpf Urine Bacteria (FEW) /hpf Urine Mucus (FEW) /hpf 08/27/19 08/27/19 08/27/19 Range/Units 17:45 21:23 22:25 WBC (3.98-10.04) K/mm3 RBC (3.98-5.22) M/mm3 Hgb 12.3 (11.2-15.7) gm/dl Hct 39.4 (34.1-44.9) % MCV (79.4-94.8) fl MCH (25.6-32.2) pg MCHC (32.2-35.5) g/dl RDW Std Deviation (36.4-46.3) fL Plt Count (182-369) K/mm3 MPV (9.4-12.3) fl Neut % (Auto) (34.0-71.1) % Lymph % (Auto) (19.3-51.7) % [place] % (Auto) (4.7-12.5) % Eos % (Auto) (0.7-5.8) Baso % (Auto) (0.1-1.2) % Neut # (Auto) (1.56-6.13) K/mm3 Lymph # (Auto) (1.18-3.74) K/mm3 [place] # (Auto) (0.24-0.36) K/mm3 Eos # (Auto) (0.04-0.36) K/mm3 Baso # (Auto) (0.01-0.08) K/mm3 Manual Slide Review Sodium (136-145) mEq/L Potassium (3.5-5.1) mEq/L Chloride (98-107) mEq/L Carbon Dioxide (21-32) mEq/L Anion Gap (5-15) BUN (7-18) mg/dL Creatinine (0.55-1.02) mg/dL Est Cr Clr Drug Dosing mL/min Estimated GFR (MDRD) (>60) mL/min BUN/Creatinine Ratio (14-18) Glucose (80-115) mg/dL POC Glucose 226 H (80-115) mg/dL Lactic Acid (0.4-2.0) mmol/L Calcium (8.5-10.1) mg/dL Magnesium (1.8-2.4) mg/dl Total Bilirubin (0.2-1.0) mg/dL AST (15-37) U/L ALT (14-59) U/L Alkaline Phosphatase (46-116) U/L Troponin I (0.00-0.056) ng/mL Total Protein (6.4-8.2) g/dl Albumin (3.4-5.0) g/dl Globulin gm/dL Albumin/Globulin Ratio (1-2) Urine Color Yellow (Yellow) Urine Appearance Clear (Clear) Urine pH 6.5 (5.0-8.0) Ur Specific [place] 1.015 (1.005-1.030) Urine Protein 1+ H (Negative) Urine Glucose (UA) Negative (Negative) Urine Ketones 1+ H (Negative) Urine Occult Blood 1+ H (Negative) Urine Nitrite Negative (Negative) Urine Bilirubin 2+ H (Negative) Urine Urobilinogen 1.0 (0.2-1.0) Ur Leukocyte Esterase 1+ H (Negative) Urine RBC 5-10 H (0-5) /hpf Urine WBC 10-20 H (0-5) /hpf Ur Squamous Epith Cells 0-5 (0-5) /hpf Urine Bacteria Moderate H (FEW) /hpf Urine Mucus Few (FEW) /hpf Result Diagrams: 08/27/19 22:25 08/27/19 16:52 Problem List Initiated/Reviewed/Updated: Yes Orders Last 24hrs: Active Orders 24 hr Category Date Time Status Patient Status [ADT] Routine ADT 08/27/19 20:23 Active Antiembolic Devices [RC] PER UNIT ROUTINE Care 08/27/19 20:51 Active Blood Glucose Check, Bedside [RC] QIDACANDBED Care 08/27/19 21:01 Active Hemoccult [Fecal Occult Blood Collection] [RC] Care 08/27/19 19:24 Active ASDIRECTED Influenza Vaccine Charge [RC] .DISCHARGE Care 08/27/19 17:34 Active Insert Alberto Catheter [Insert Urinary Catheter] [OM.PC] Care 08/27/19 17:45 Ordered Stat Oxygen Therapy [RC] PRN Care 08/27/19 20:48 Active Up With Assistance [RC] ASDIRECTED Care 08/27/19 20:48 Active Urinary Catheter Assessment [RC] Q4HR Care 08/27/19 17:45 Active VTE/DVT Education [RC] BID Care 08/27/19 20:48 Active Clear Liquid Diet [DIET] Diet 08/27/19 Dinner Active Chest 1V Frontal [CR] Stat Exams 08/27/19 16:48 Taken CBC WITH AUTO DIFF [HEME] AM Lab 08/28/19 05:11 Ordered COMPREHENSIVE METABOLIC PN,CMP [CHEM] AM Lab 08/28/19 05:11 Ordered CULTURE BLOOD [BC] Stat Lab 08/27/19 17:39 Received CULTURE BLOOD [BC] Stat Lab 08/27/19 22:25 Received CULTURE URINE [RM] Stat Lab 08/27/19 17:45 Received HEMOGLOBIN/HEMATOCRIT,HH [HEME] Q4H Lab 08/28/19 00:56 Ordered LACTATE SEPSIS W/ REFLEX [CHEM] Routine Lab 08/27/19 22:25 Received MAGNESIUM [CHEM] AM Lab 08/28/19 05:11 Ordered Insulin Lispro [HumaLOG] Med 08/27/19 22:00 Active See Protocol SUBCUT QIDACANDBED Lactated Ringers [Ringers, Lactated] 1,000 ml Med 08/27/19 19:15 Active IV ASDIRECTED Ondansetron [Zofran] Med 08/27/19 20:48 Active 4 mg IV Q4H PRN Pantoprazole [ProTONIX IV] 80 mg Med 08/27/19 19:30 Active Sodium Chloride 0.9% [Normal Saline] 100 ml IV Q10H Sodium Chloride 0.9% [Saline Flush] Med 08/27/19 16:48 Active 10 ml FLUSH ASDIRECTED PRN predniSONE Med 08/27/19 21:00 Active 5 mg PO DAILY Blood Culture x2 Reflex Set [OM.PC] Stat Oth 08/27/19 16:48 Ordered Peripheral IV Insertion Adult [OM.PC] Stat Oth 08/27/19 16:48 Ordered Sequential Compression Device [OM.PC] Per Unit Routine Oth 08/27/19 20:49 Ordered Resuscitation Status Routine Resus Stat 08/27/19 20:48 Ordered Medication Orders Lactated Ringer's (Ringers, Lactated) 1,000 mls @ 100 mls/hr IV ASDIRECTED [facility] Last Admin: 08/27/19 19:40 Dose: 100 mls/hr Pantoprazole Sodium 80 mg/ (Sodium Chloride) 100 mls @ 10 mls/hr IV Q10H [facility] Last Admin: 08/27/19 19:40 Dose: 10 mls/hr Insulin Human Lispro (Humalog) 0 unit SUBCUT QIDACANDBED [facility]; Protocol Last Admin: 08/27/19 21:25 Dose: 2 units Ondansetron HCl (Zofran) 4 mg IV Q4H PRN PRN Reason: Nausea/Vomiting Prednisone (Prednisone) 5 mg PO DAILY [facility] Last Admin: 08/27/19 21:24 Dose: 5 mg Sodium Chloride (Saline Flush) 10 ml FLUSH ASDIRECTED PRN PRN Reason: Keep Vein Open Last Admin: 08/27/19 17:35 Dose: 10 ml Assessment/Plan Comment:: Assessment * Sepsis * Urinary tract infection * Kidney transplant on antirejection medication * Diabetes on insulin * GI bleed likely upper GI * Renal insufficiency likely chronic but possible acute on chronic Plan * Admit to ICU * Rocephin given in the emergency room * Start vancomycin pharmacy to dose because of severity of illness * Protonix drip * Patient is on home chronic prednisone per the only med list we have. She will get 5 mg now on 5 mg in the morning. * IV fluids to maintain perfusion * Strict I's and O's and daily weights * Sliding-scale insulin * Serial lactic acid * Serial hemoglobin every 4 hours * Consult surgery if hemoglobin drops and it appears that she has an active bleed * CBC, CMP, magnesium in the morning * Try to get a med list * CODE STATUS: Full code * DVT prophylaxis with SCDs. Chemotherapy prophylaxis is contraindicated secondary to the GI bleed - Mortality Measure Prognosis:: Poor
[2019-08-27] MEDS ORDERED: Vancomycin 2 GM in Sodium Chloride 0.9% 500 ML IV ONE (23:30)
[2019-08-28] MEDS: Pantoprazole 80 MG in Sodium Chloride 0.9% 100 ML IV SCH ×2 (01:55→14:38)
[2019-08-28] MEDS: Lactated Ringers 1,000 ML IV SCH (05:42)
[2019-08-28] MEDS: Insulin Lispro 100 Units/ML 3 ML Vial SUBCUT SCH ×2 (06:00→14:39)
[2019-08-28 08:01] LABS: HEMOGLOBIN A1C 7.1 % (4.50-6.20)
--- NOTE | 2019-08-28 08:12 | CR ---
Chest: Portable view of the chest was obtained. Comparison: Prior chest x-ray of 06/19/19. Heart is felt to be slightly enlarged. Upper mediastinum is normal. Oval nodular density is noted within the left upper chest which is believed to be stable back to 2017 and therefore incidental. Lungs show no acute parenchymal change. Bony structures are osteopenic but grossly intact. Previous cholecystectomy is noted. Impression: 1. Findings as noted above. Nothing acute is appreciated on portable chest x-ray. Diagnostic code #2
[2019-08-28] MEDS: predniSONE 5 MG Tab PO SCH (10:00)
--- NOTE | 2019-08-28 12:30 | PCM.DCSUM1 ---
Discharge Summary - Hospital Course HPI Initial Comments: 68-year-old female with kidney transplant was brought into the emergency room by EMS after being found by the police at home during a welfare check. Family had not heard from her for couple of days and when they did she was confused. She was found in her bedroom unable to say where she was. Patient was unable to give me a history so history was obtained through emergency room physician and his notes. Also we did not have an updated med list. In the emergency room patient was given a liter bolus of normal saline, EKG, head CT, labs, blood cultures, and lactic acid. Head CT showed mild generalized atrophy. Presumed old jong holes within the upper posterior skull. Atherosclerotic calcification within the vertebral vessels and carotid siphon. Nothing acute is appreciated on noncontrast head CT. Chest x-ray showed nothing acute. White count was 15.58 with a lactic acid of 2.8. Creatinine was 1.7. BUN 50, anion gap 15.7, UA 10-20 WBCs with moderate bacteria and only 0-5 epithelial cells. 1+ protein. She is on antirejection medications for her kidney transplant. It was felt patient would be best served by going to [place] with they have higher level of care. Unfortunately, the weather provided transport to [place] for this evening so we admitted her to the ICU. Also in the emergency room the nurse did a rectal temperature which was normal. She did note black stools and an occult blood sample was obtained which was positive. She was started given a Protonix bolus and then started on a Protonix drip. Diagnosis: Stroke: No - Discharge Data Discharge Date: 08/28/19 Discharge Disposition: DC/Tfer to Acute Hospital 02 Condition: Fair - Referral to Home Health Primary Care Physician: PCP None - Patient Summary/Data Hospital Course: Assessment * Sepsis * Urinary tract infection * Kidney transplant on antirejection medication * Diabetes on insulin * GI bleed likely upper GI * Renal insufficiency likely chronic but possible acute on chronic Plan * Admitted to ICU * Rocephin given in the emergency room * Start vancomycin pharmacy to dose because of severity of illness * Protonix drip * Patient is on home chronic prednisone per the only med list we have. She will get 5 mg now on 5 mg in the morning. * IV fluids to maintain perfusion * Strict I's and O's and daily weights * Sliding-scale insulin * Serial lactic acid * Serial hemoglobin every 4 hours * Consult surgery if hemoglobin drops and it appears that she has an active bleed * CBC, CMP, magnesium in the morning * Try to get a med list * CODE STATUS: Full code * DVT prophylaxis with SCDs. Chemotherapy prophylaxis is contraindicated secondary to the GI bleed - Discharge Plan *PRESCRIPTION DRUG MONITORING PROGRAM REVIEWED*: No *COPY OF PRESCRIPTION DRUG MONITORING REPORT IN PATIENT ELVIRA: No Home Medications: Home Meds Acetaminophen 1,000 mg PO Q6HR PRN 07/02/18 [History] Aspirin [Halfprin] 81 mg PO DAILY 07/02/18 [History] Docusate Sodium [Colace] 200 mg PO DAILY PRN 07/02/18 [History] Fluticasone Propionate [Flonase] 50 mcg NASBOTH DAILY PRN 07/02/18 [History] Furosemide [Lasix] 20 mg PO BID 07/02/18 [History] Gabapentin [Neurontin] 200 mg PO DAILY 07/02/18 [History] Insulin Glargine,Hum.Rec.Anlog [Lantus Solostar] 14 units SQ DAILY 07/02/18 [ History] Insulin Lispro [Humalog Kwikpen U-100] 5 - 15 unit SQ QID 07/02/18 [History] Loratadine/Pseudoephedrine [Loratadine-Pseudoephed 10-240] 1 each PO DAILY 07/02 [History] Mycophenolate Mofetil [Cellcept] 500 mg PO BID 07/02/18 [History] Pantoprazole [ProTONIX] 40 mg PO DAILY 07/02/18 [History] Sertraline [Zoloft] 150 mg PO DAILY 07/02/18 [History] Sodium Bicarbonate 1,300 mg PO BID 07/02/18 [History] Sulfamethoxazole/Trimethoprim [Bactrim Ds Tablet] 1 each PO MOWEFR 07/02/18 [ History] atorvaSTATin [Lipitor] 20 mg PO DAILY 07/02/18 [History] predniSONE [Prednisone] 5 mg PO DAILY 07/02/18 [History] Tacrolimus 1.5 mg PO BID 07/03/18 [History] Doxycycline [Vibramycin] 100 mg PO BID #20 cap 12/08/18 [Rx] ALPRAZolam [Xanax] 0.25 mg PO BEDTIME PRN 12/11/18 [History] Cranberry Extract [Cranberry] 360 mg PO DAILY 12/11/18 [History] Estrogens, Conjugated [Premarin Vaginal Crm] 12/11/18 [History] Fosfomycin 3 gm PO ASDIRECTED 12/11/18 [History] Cephalexin [Keflex] 500 mg PO BID #14 capsule 06/19/19 [Rx] Oxygen Therapy Mode: Room Air Forms: ED Department Discharge Referrals: PCP,None [Primary Care Provider] - - Discharge Summary/Plan Comment DC Time >30 min.: Yes Discharge Summary/Plan Comment: Due to the patient's underlying medical conditions including renal cell transplant she will be transferred to a higher level of care via ground ambulance. Accepting physician Dr. Morro Potts. She is stable at time of transfer. - General Info Date of Service: 08/28/19 Admission Dx/Problem (Free Text: Admission Diagnosis/Problem Admission Diagnosis/Problem Urosepsis Subjective Update: patient doing much better. Able to answer questions appropriately.Oriented to person and place but not Functional Status: Reports: Pain Controlled - Review of Systems General: Reports: No Symptoms HEENT: Reports: No Symptoms Pulmonary: Reports: No Symptoms Cardiovascular: Reports: No Symptoms Gastrointestinal: Reports: No Symptoms - Patient Data Vitals - Most Recent: Last Vital Signs Temp 96.9 F 08/28/19 08:00 Pulse 90 08/27/19 16:48 Resp 18 08/28/19 08:00 BP 120/80 08/28/19 08:00 Pulse Ox 99 08/28/19 08:00 Weight - Most Recent: 177 lb 0.499 oz I&O - Last 24 hours: Intake & Output 08/27/19 08/28/19 08/28/19 22:59 06:59 14:59 Intake Total 995 50 Output Total 125 450 265 Balance -125 545 -215 Lab Results - Last 24 hrs: Laboratory Results - last 24 hr 08/27/19 08/27/19 08/27/19 Range/Units 16:52 16:52 17:39 WBC 15.58 H (3.98-10.04) K/mm3 RBC 4.77 (3.98-5.22) M/mm3 Hgb 13.2 (11.2-15.7) gm/dl Hct 42.2 (34.1-44.9) % MCV 88.5 (79.4-94.8) fl MCH 27.7 (25.6-32.2) pg MCHC 31.3 L (32.2-35.5) g/dl RDW Std Deviation 51.0 H (36.4-46.3) fL Plt Count 196 (182-369) K/mm3 MPV 10.0 (9.4-12.3) fl Neut % (Auto) 85.2 H (34.0-71.1) % Lymph % (Auto) 6.2 L (19.3-51.7) % [place] % (Auto) 7.1 (4.7-12.5) % Eos % (Auto) 0.6 L (0.7-5.8) Baso % (Auto) 0.1 (0.1-1.2) % Neut # (Auto) 13.30 H (1.56-6.13) K/mm3 Lymph # (Auto) 0.96 L (1.18-3.74) K/mm3 [place] # (Auto) 1.10 H (0.24-0.36) K/mm3 Eos # (Auto) 0.09 (0.04-0.36) K/mm3 Baso # (Auto) 0.01 (0.01-0.08) K/mm3 Manual Slide Review Abnormal smear Sodium 143 (136-145) mEq/L Potassium 4.7 (3.5-5.1) mEq/L Chloride 106 (98-107) mEq/L Carbon Dioxide 26 (21-32) mEq/L Anion Gap 15.7 H (5-15) BUN 50 H (7-18) mg/dL Creatinine 1.7 H (0.55-1.02) mg/dL Est Cr Clr Drug Dosing 24.35 mL/min Estimated GFR (MDRD) 30 (>60) mL/min BUN/Creatinine Ratio 29.4 H (14-18) Glucose 231 H (80-115) mg/dL POC Glucose (80-115) mg/dL Hemoglobin A1c (4.50-6.20) % Lactic Acid 2.8 H (0.4-2.0) mmol/L Calcium 9.0 (8.5-10.1) mg/dL Magnesium 2.0 (1.8-2.4) mg/dl Total Bilirubin 0.8 (0.2-1.0) mg/dL AST 10 L (15-37) U/L ALT 12 L (14-59) U/L Alkaline Phosphatase 83 (46-116) U/L Troponin I 0.035 (0.00-0.056) ng/mL Total Protein 6.3 L (6.4-8.2) g/dl Albumin 2.8 L (3.4-5.0) g/dl Globulin 3.5 gm/dL Albumin/Globulin Ratio 0.8 L (1-2) Urine Color (Yellow) Urine Appearance (Clear) Urine pH (5.0-8.0) Ur Specific [place] (1.005-1.030) Urine Protein (Negative) Urine Glucose (UA) (Negative) Urine Ketones (Negative) Urine Occult Blood (Negative) Urine Nitrite (Negative) Urine Bilirubin (Negative) Urine Urobilinogen (0.2-1.0) Ur Leukocyte Esterase (Negative) Urine RBC (0-5) /hpf Urine WBC (0-5) /hpf Ur Squamous Epith Cells (0-5) /hpf Urine Bacteria (FEW) /hpf Urine Mucus (FEW) /hpf 08/27/19 08/27/19 08/27/19 Range/Units 17:45 21:23 22:25 WBC (3.98-10.04) K/mm3 RBC (3.98-5.22) M/mm3 Hgb (11.2-15.7) gm/dl Hct (34.1-44.9) % MCV (79.4-94.8) fl MCH (25.6-32.2) pg MCHC (32.2-35.5) g/dl RDW Std Deviation (36.4-46.3) fL Plt Count (182-369) K/mm3 MPV (9.4-12.3) fl Neut % (Auto) (34.0-71.1) % Lymph % (Auto) (19.3-51.7) % Morton % (Auto) (4.7-12.5) % Eos % (Auto) (0.7-5.8) Baso % (Auto) (0.1-1.2) % Neut # (Auto) (1.56-6.13) K/mm3 Lymph # (Auto) (1.18-3.74) K/mm3 [place] # (Auto) (0.24-0.36) K/mm3 Eos # (Auto) (0.04-0.36) K/mm3 Baso # (Auto) (0.01-0.08) K/mm3 Manual Slide Review Sodium (136-145) mEq/L Potassium (3.5-5.1) mEq/L Chloride (98-107) mEq/L Carbon Dioxide (21-32) mEq/L Anion Gap (5-15) BUN (7-18) mg/dL Creatinine (0.55-1.02) mg/dL Est Cr Clr Drug Dosing mL/min Estimated GFR (MDRD) (>60) mL/min BUN/Creatinine Ratio (14-18) Glucose (80-115) mg/dL POC Glucose 226 H (80-115) mg/dL Hemoglobin A1c (4.50-6.20) % Lactic Acid 1.3 (0.4-2.0) mmol/L Calcium (8.5-10.1) mg/dL Magnesium (1.8-2.4) mg/dl Total Bilirubin (0.2-1.0) mg/dL AST (15-37) U/L ALT (14-59) U/L Alkaline Phosphatase (46-116) U/L Troponin I (0.00-0.056) ng/mL Total Protein (6.4-8.2) g/dl Albumin (3.4-5.0) g/dl Globulin gm/dL Albumin/Globulin Ratio (1-2) Urine Color Yellow (Yellow) Urine Appearance Clear (Clear) Urine pH 6.5 (5.0-8.0) Ur Specific [place] 1.015 (1.005-1.030) Urine Protein 1+ H (Negative) Urine Glucose (UA) Negative (Negative) Urine Ketones 1+ H (Negative) Urine Occult Blood 1+ H (Negative) Urine Nitrite Negative (Negative) Urine Bilirubin 2+ H (Negative) Urine Urobilinogen 1.0 (0.2-1.0) Ur Leukocyte Esterase 1+ H (Negative) Urine RBC 5-10 H (0-5) /hpf Urine WBC 10-20 H (0-5) /hpf Ur Squamous Epith Cells 0-5 (0-5) /hpf Urine Bacteria Moderate H (FEW) /hpf Urine Mucus Few (FEW) /hpf 08/27/19 08/28/19 08/28/19 Range/Units 22:25 01:36 05:06 WBC 11.90 H (3.98-10.04) K/mm3 RBC 4.07 (3.98-5.22) M/mm3 Hgb 12.3 11.9 11.2 (11.2-15.7) gm/dl Hct 39.4 38.7 36.6 (34.1-44.9) % MCV 89.9 (79.4-94.8) fl MCH 27.5 (25.6-32.2) pg MCHC 30.6 L (32.2-35.5) g/dl RDW Std Deviation 50.8 H (36.4-46.3) fL Plt Count 159 L (182-369) K/mm3 MPV 10.4 (9.4-12.3) fl Neut % (Auto) 86.8 H (34.0-71.1) % Lymph % (Auto) 6.4 L (19.3-51.7) % Morton % (Auto) 6.0 (4.7-12.5) % Eos % (Auto) 0.4 L (0.7-5.8) Baso % (Auto) 0.1 (0.1-1.2) % Neut # (Auto) 10.34 H (1.56-6.13) K/mm3 Lymph # (Auto) 0.76 L (1.18-3.74) K/mm3 [place] # (Auto) 0.71 H (0.24-0.36) K/mm3 Eos # (Auto) 0.05 (0.04-0.36) K/mm3 Baso # (Auto) 0.01 (0.01-0.08) K/mm3 Manual Slide Review Abnormal smear Sodium (136-145) mEq/L Potassium (3.5-5.1) mEq/L Chloride (98-107) mEq/L Carbon Dioxide (21-32) mEq/L Anion Gap (5-15) BUN (7-18) mg/dL Creatinine (0.55-1.02) mg/dL Est Cr Clr Drug Dosing mL/min Estimated GFR (MDRD) (>60) mL/min BUN/Creatinine Ratio (14-18) Glucose (80-115) mg/dL POC Glucose (80-115) mg/dL Hemoglobin A1c (4.50-6.20) % Lactic Acid (0.4-2.0) mmol/L Calcium (8.5-10.1) mg/dL Magnesium (1.8-2.4) mg/dl Total Bilirubin (0.2-1.0) mg/dL AST (15-37) U/L ALT (14-59) U/L Alkaline Phosphatase (46-116) U/L Troponin I (0.00-0.056) ng/mL Total Protein (6.4-8.2) g/dl Albumin (3.4-5.0) g/dl Globulin gm/dL Albumin/Globulin Ratio (1-2) Urine Color (Yellow) Urine Appearance (Clear) Urine pH (5.0-8.0) Ur Specific [place] (1.005-1.030) Urine Protein (Negative) Urine Glucose (UA) (Negative) Urine Ketones (Negative) Urine Occult Blood (Negative) Urine Nitrite (Negative) Urine Bilirubin (Negative) Urine Urobilinogen (0.2-1.0) Ur Leukocyte Esterase (Negative) Urine RBC (0-5) /hpf Urine WBC (0-5) /hpf Ur Squamous Epith Cells (0-5) /hpf Urine Bacteria (FEW) /hpf Urine Mucus (FEW) /hpf 08/28/19 08/28/19 08/28/19 Range/Units 05:06 05:06 05:50 WBC (3.98-10.04) K/mm3 RBC (3.98-5.22) M/mm3 Hgb (11.2-15.7) gm/dl Hct (34.1-44.9) % MCV (79.4-94.8) fl MCH (25.6-32.2) pg MCHC (32.2-35.5) g/dl RDW Std Deviation (36.4-46.3) fL Plt Count (182-369) K/mm3 MPV (9.4-12.3) fl Neut % (Auto) (34.0-71.1) % Lymph % (Auto) (19.3-51.7) % [place] % (Auto) (4.7-12.5) % Eos % (Auto) (0.7-5.8) Baso % (Auto) (0.1-1.2) % Neut # (Auto) (1.56-6.13) K/mm3 Lymph # (Auto) (1.18-3.74) K/mm3 [place] # (Auto) (0.24-0.36) K/mm3 Eos # (Auto) (0.04-0.36) K/mm3 Baso # (Auto) (0.01-0.08) K/mm3 Manual Slide Review Sodium 146 H (136-145) mEq/L Potassium 4.4 (3.5-5.1) mEq/L Chloride 111 H (98-107) mEq/L Carbon Dioxide 24 (21-32) mEq/L Anion Gap 15.4 H (5-15) BUN 42 H (7-18) mg/dL Creatinine 1.4 H (0.55-1.02) mg/dL Est Cr Clr Drug Dosing 29.57 mL/min Estimated GFR (MDRD) 37 (>60) mL/min BUN/Creatinine Ratio 30.0 H (14-18) Glucose 182 H (80-115) mg/dL POC Glucose 190 H (80-115) mg/dL Hemoglobin A1c 7.10 H (4.50-6.20) % Lactic Acid (0.4-2.0) mmol/L Calcium 8.6 (8.5-10.1) mg/dL Magnesium 2.0 (1.8-2.4) mg/dl Total Bilirubin 0.5 (0.2-1.0) mg/dL AST 14 L (15-37) U/L ALT 9 L (14-59) U/L Alkaline Phosphatase 76 (46-116) U/L Troponin I (0.00-0.056) ng/mL Total Protein 5.8 L (6.4-8.2) g/dl Albumin 2.5 L (3.4-5.0) g/dl Globulin 3.3 gm/dL Albumin/Globulin Ratio 0.8 L (1-2) Urine Color (Yellow) Urine Appearance (Clear) Urine pH (5.0-8.0) Ur Specific [place] (1.005-1.030) Urine Protein (Negative) Urine Glucose (UA) (Negative) Urine Ketones (Negative) Urine Occult Blood (Negative) Urine Nitrite (Negative) Urine Bilirubin (Negative) Urine Urobilinogen (0.2-1.0) Ur Leukocyte Esterase (Negative) Urine RBC (0-5) /hpf Urine WBC (0-5) /hpf Ur Squamous Epith Cells (0-5) /hpf Urine Bacteria (FEW) /hpf Urine Mucus (FEW) /hpf BIJU Results - Last 24 hrs: Microbiology 08/27/19 17:45 Urine Culture - Preliminary Urine, Catheterized Gram Negative Rods 08/27/19 22:25 Anaerobic Blood Culture - Final Blood - Venous - Lab Draw Med Orders - Current: Current Medications Lactated Ringer's (Ringers, Lactated) 1,000 mls @ 100 mls/hr IV ASDIRECTED [facility] Last Admin: 08/28/19 05:42 Dose: 100 mls/hr Vancomycin HCl 1.25 gm/ Sodium (Chloride) 250 mls @ 166.667 mls/hr IV Q24H [facility] Pantoprazole Sodium 80 mg/ (Sodium Chloride) 100 mls @ 10 mls/hr IV Q10H [facility] Last Admin: 08/28/19 01:55 Dose: 10 mls/hr Ceftriaxone Sodium 2 gm/ (Sodium Chloride) 100 mls @ 200 mls/hr IV Q24H [facility] Insulin Glargine (Lantus) 7 unit SUBCUT BEDTIME [facility] Insulin Human Lispro (Humalog) 0 unit SUBCUT QIDACANDBED [facility]; Protocol Last Admin: 08/28/19 06:00 Dose: 1 units Ondansetron HCl (Zofran) 4 mg IV Q4H PRN PRN Reason: Nausea/Vomiting Prednisone (Prednisone) 5 mg PO DAILY [facility] Last Admin: 08/28/19 10:00 Dose: 5 mg Sodium Chloride (Saline Flush) 10 ml FLUSH ASDIRECTED PRN PRN Reason: Keep Vein Open Last Admin: 08/27/19 17:35 Dose: 10 ml Vancomycin HCl (Pharmacy To Dose - Vancomycin) 1 dose .XX ASDIRECTED PRN PRN Reason: RX TO DOSE VANCO Discontinued Medications Sodium Chloride (Normal Saline) 1,000 mls @ 1,000 mls/hr IV .BOLUS STA Stop: 08/27/19 17:47 Last Admin: 08/27/19 17:45 Dose: 1,000 mls/hr Ceftriaxone Sodium 2 gm/ (Sodium Chloride) 100 mls @ 200 mls/hr IV ONETIME ONE Stop: 08/27/19 18:03 Last Admin: 08/27/19 18:02 Dose: 200 mls/hr Pantoprazole Sodium 80 mg/ (Sodium Chloride) 100 mls @ 10 mls/hr IV Q10H [facility] Last Admin: 08/27/19 19:40 Dose: 10 mls/hr Vancomycin HCl 2 gm/ Sodium (Chloride) 500 mls @ 250 mls/hr IV ONETIME ONE Stop: 08/28/19 01:29 Last Admin: 08/27/19 23:52 Dose: 250 mls/hr Influenza Virus Vaccine (Pharmacy To Dose - Influenza Vaccine) 1 each IM ONETIME ONE Stop: 08/27/19 17:35 Influenza Virus Vaccine (Fluzone High-Dose 2018- Syringe) 180 mcg IM .ONCE ONE Stop: 08/27/19 17:46 Insulin Glargine (Lantus) 0 unit SUBCUT BEDTIME [facility] Last Admin: 08/27/19 23:51 Dose: 7 unit Pantoprazole Sodium (Protonix Iv) 80 mg IVPUSH BOLUS ONE Stop: 08/27/19 19:22 Last Admin: 08/27/19 19:40 Dose: 80 mg - Exam General: Reports: Alert, Oriented HEENT: Reports: Pupils Equal, Pupils Reactive, EOMI, Mucous Membr. Moist/[place] Neck: Reports: Supple Lungs: Reports: Clear to Auscultation, Normal Respiratory Effort Cardiovascular: Reports: Regular Rate, Regular Rhythm GI/Abdominal Exam: Normal Bowel Sounds, Soft, Non-Tender, No Organomegaly, No Distention, No Abnormal Bruit, No Mass Extremities: Normal Inspection, Normal Range of Motion, Non-Tender, Normal Capillary Refill, Pedal Edema (scant) Skin: Reports: Warm, Dry, Intact
[2019-08-28 13:32] VITALS: BP 113/89
[2019-08-28] MEDS ORDERED: cefTRIAXone 2 GM in Sodium Chloride 0.9% 100 ML IV SCH (18:00)
== END 2019-08-28 13:05 | DRG 871 ==
LOC: JD.ED 16:43 → JD.ICU 20:23
PROVIDERS: ADMIT Family Medicine; ATTEND Family Medicine
DX: A41.9 Sepsis, unspecified organism (principal); G93.41 Metabolic encephalopathy; R41.0 Disorientation, unspecified; R53.1 Weakness; I12.9 Hypertensive chronic kidney disease with stage 1 through stage 4 chronic kidney disease, or unspecified chronic kidney disease; K72.00 Acute and subacute hepatic failure without coma; N39.0 Urinary tract infection, site not specified; Z94.0 Kidney transplant status; K92.2 Gastrointestinal hemorrhage, unspecified; N17.9 Acute kidney failure, unspecified; N18.9 Chronic kidney disease, unspecified; E78.00 Pure hypercholesterolemia, unspecified; B19.20 Unspecified viral hepatitis C without hepatic coma; E11.22 Type 2 diabetes mellitus with diabetic chronic kidney disease; J45.909 Unspecified asthma, uncomplicated; K74.60 Unspecified cirrhosis of liver; K72.90 Hepatic failure, unspecified without coma; G43.909 Migraine, unspecified, not intractable, without status migrainosus; F41.9 Anxiety disorder, unspecified; F32.9 Major depressive disorder, single episode, unspecified; E66.9 Obesity, unspecified; D50.9 Iron deficiency anemia, unspecified; Z96.659 Presence of unspecified artificial knee joint; Z79.82 Long term (current) use of aspirin; Z79.899 Other long term (current) drug therapy; Z79.4 Long term (current) use of insulin; Z79.52 Long term (current) use of systemic steroids; Z91.048 Other nonmedicinal substance allergy status; Z91.040 Latex allergy status; Z88.8 Allergy status to other drugs, medicaments and biological substances; Z90.89 Acquired absence of other organs; Z90.49 Acquired absence of other specified parts of digestive tract; Z90.710 Acquired absence of both cervix and uterus; Z68.32 Body mass index [BMI] 32.0-32.9, adult
CPT/HCPCS: 36415; 70450; 71045; 80053; 81001; 83605; 83735; 84484; 85025; 87040; 87086; 87088; 87184; 87186; 96361; 96365; 96367; 99285; C9113 ×2; J0696; J7030 ×2; J7040; J7120; 51702; 82962; 83036; 85014; 85018; 99284; A9270-GY; J1815-GY; J2405; J3370

== ENCOUNTER 2020-07-04 04:21 | Emergency (ER) | payer MEDICARE, BC ==
--- NOTE | 2020-07-04 04:59 | EDM.PDOC ---
ED HPI GENERAL MEDICAL PROBLEM - General Chief Complaint: Neuro Symptoms/Deficits Stated Complaint: [facility] Time Seen by Provider: 07/04/20 04:21 - History of Present Illness INITIAL COMMENTS - FREE TEXT/NARRATIVE: 69-year-old female brought into the emergency room with right-sided weakness. Patient was last known normal at midnight this evening. She awoke shortly before EMS picked her up with significant neck pain in the right side of her neck and down the middle going up to the base of her skull. She had significant right-sided weakness. She had no slurred speech or facial drooping noted. The patient's situation is complicated by being 7 days postop total right hip arthroplasty. According to EMS she could not do much of anything with her right arm however maintained right leg strength albeit a little weaker than on the left. But initially according to EMS she could not do anything with her right hand and upper extremity. By the time they arrived to the emergency room she was doing purposeful movement with the right upper extremity. At this time she complains mostly of neck pain. Patient denies any loss of bowel or bladder control. Right Lower Neck Pain Score (Numeric/FACES): 8 - Related Data Allergies Allergy/AdvReac Type Severity Reaction Status Date / Time adhesive Allergy Itching Verified 07/04/20 04:41 latex Allergy Rash Verified 07/04/20 04:41 nickel Allergy Itching Verified 07/04/20 04:41 omeprazole [From Prilosec] Allergy Cannot Verified 07/04/20 04:41 Remember omeprazole magnesium Allergy Hives Verified 07/04/20 04:41 [From Prilosec] oxycodone AdvReac Anxiety Verified 07/04/20 04:45 calcium sodium alginate Allergy Cannot Uncoded 07/04/20 04:41 Remember Home Meds: Home Meds Acetaminophen 650 mg PO Q6HR 07/02/18 [History] Aspirin [Halfprin] 81 mg PO DAILY 07/02/18 [History] Fluticasone Propionate [Flonase] 50 mcg NASBOTH DAILY 07/02/18 [History] Furosemide [Lasix] 20 mg PO BID 07/02/18 [History] Gabapentin [Neurontin] 100 mg PO TID 07/02/18 [History] Insulin Glargine,Hum.Rec.Anlog [Lantus Solostar] 8 units SQ BEDTIME 07/02/18 [History] Insulin Lispro [Humalog Kwikpen U-100] 5 - 15 unit SQ TID 07/02/18 [History] Loratadine/Pseudoephedrine [Loratadine-Pseudoephed 10-240] 1 each PO DAILY 07/02/18 [History] Sertraline [Zoloft] 100 mg PO DAILY 07/02/18 [History] Sodium Bicarbonate 1,300 mg PO BID 07/02/18 [History] atorvaSTATin [Lipitor] 20 mg PO DAILY 07/02/18 [History] mycophenolate mofetiL [Cellcept] 250 mg PO DAILY 07/02/18 [History] predniSONE [Prednisone] 5 mg PO DAILY 07/02/18 [History] Tacrolimus 1.5 mg PO DAILY 07/03/18 [History] Estrogens, Conjugated [Premarin Vaginal Crm] 1 appful VAG MOWEFR 12/11/18 [Hi story] Lactulose [Cephulac] 10 gm PO DAILY PRN 07/04/20 [History] Tacrolimus [Prograf] 2 mg PO BEDTIME 07/04/20 [History] traZODone HCl [Trazodone HCl] 50 - 100 mg PO BEDTIME 07/04/20 [History] Past Medical History HEENT History: Reports: Glaucoma Cardiovascular History: Reports: High Cholesterol Respiratory History: Reports: Asthma Other Respiratory History: in winter time uses inhaler when get a bad cough or cold. Gastrointestinal History: Reports: Cirrhosis, Hepatitis Other Gastrointestinal History: liver failure Genitourinary History: Reports: Chronic Renal Insuffiency Other Genitourinary History: dialysis m,w,f. Kidney transplant 08/10/2016. SHANK BREAKER History: Reports: Neurological History: Reports: Migraines, Seizure Psychiatric History: Reports: Anxiety, Depression Endocrine/Metabolic History: Reports: Diabetes, Type II, Obesity/BMI 30+ Other Endocrine/Metabolic History: diabetes controlled with diet. Hematologic History: Reports: Anemia, Blood Transfusion(s), Iron Deficiency, Other (See Below) Other Hematologic History: iron transfusions. Immunologic History: Reports: Solid Organ Transplant Other Immunologic History: Kidney transplant 2 years ago (2015) - Infectious Disease History Infectious Disease History: Reports: Chicken Pox, Hepatitis C, Measles, Shingles, Other (See Below) Other Infectious Disease History: food related Hepatitis - Past Surgical History HEENT Surgical History: Reports: Laser Surgery, Tonsillectomy GI Surgical History: Reports: Appendectomy, Cholecystectomy, Colonoscopy, Hernia, Abdominal Female Surgical History: Reports: Hysterectomy, Other (See Below) Other Female Surgeries/Procedures: kidney transplant Musculoskeletal Surgical History: Reports: Arthroscopic Knee, Hip Replacement, Knee Replacement Social & Family History - Family History Family Medical History: Noncontributory - Tobacco Use Smoking Status *Q: Never Smoker - Caffeine Use Caffeine Use: Reports: Coffee - Recreational Drug Use Recreational Drug Use: No ED ROS GENERAL - Review of Systems Review Of Systems: See Below Constitutional: Reports: No Symptoms HEENT: Reports: No Symptoms Respiratory: Reports: No Symptoms Cardiovascular: Reports: No Symptoms Endocrine: Reports: No Symptoms GI/Abdominal: Reports: No Symptoms : Reports: No Symptoms Musculoskeletal: Reports: Neck Pain Skin: Reports: No Symptoms Neurological: Reports: Other (Has had pain just at the base of her skull and on down her neck) Psychiatric: Reports: No Symptoms Hematologic/Lymphatic: Reports: No Symptoms Immunologic: Reports: No Symptoms ED EXAM, NEURO - Physical Exam Exam: See Below Exam Limited By: No Limitations General Appearance: Alert, No Apparent Distress, Obese Eye Exam: Bilateral Eye: EOMI, Normal Inspection, PERRL Ears: Normal External Exam, Normal Canal, Hearing Grossly Normal, Normal TMs Nose: Normal Inspection, Normal Mucosa, No Blood Throat/Mouth: Normal Inspection, Normal Lips, Normal Gums, Normal Oropharynx, Normal Voice, No Airway Compromise, Other (Dentures on the upper) Head Exam: Atraumatic, Normocephalic Neck: Other (She has muscle tenderness at the base of the skull right worse than left. No midline neck discomfort). No: Lymphadenopathy (L), Lymphadenopathy (R) Respiratory/Chest: No Respiratory Distress, Lungs Clear, Normal Breath Sounds Cardiovascular: Normal Peripheral Pulses, Regular Rate, Rhythm, Other (Edema on the right.) GI/Abdominal: Normal Bowel Sounds, Soft, Non-Tender Neurological: Alert, Normal Mood/Affect, Other (Dorsiflexion plantarflexion of the feet is equal and appropriate bilaterally. She has difficulty raising her left leg up or her right leg up. But she does better with the left compared to the right how much of this is postoperative is unclear according to the patient she could do better before with the right leg price lister strength is better on the right compared to the left however she is not wanting to move her shoulder she believes a lot of this is due to pain coming out of her neck.) Back Exam: Normal Inspection, Muscle Spasm (Thoracic right side). No: CVA Tenderness (L), CVA Tenderness (R), Vertebral Tenderness Extremities: Other (Right lower extremity shows edema) EKG INTERPRETATION EKG Date: 07/04/20 Rhythm: NSR Bishop: Normal P-Wave: Present QRS: Other (Early transition) ST-T: Other (Minimal ST depression V3 through V6 nondiagnostic this is seen again in lead II) QT: Normal Comparison: No Change (No significant change from July 01, 2018) Course - Vital Signs Last Recorded V/S: Last Vital Signs Temp 36.1 C 07/04/20 04:35 Pulse 81 07/04/20 04:35 Resp 19 07/04/20 04:35 BP 148/62 H 07/04/20 04:35 Pulse Ox 95 07/04/20 04:35 - Orders/Labs/Meds Orders: Active Orders 24 hr Category Date Time Status EKG Documentation Completion [RC] STAT Care 07/04/20 04:27 Active Cervical Spine wo Cont [CT] Stat Exams 07/04/20 04:28 Taken Head wo Cont [CT] Stat Exams 07/04/20 04:28 Taken CORONAVIRUS COVID-19 RAPID [MOLEC] Stat Lab 07/04/20 05:45 Received Labs: Laboratory Tests 07/04/20 07/04/20 07/04/20 Range/Units 04:35 04:55 04:55 WBC (3.98-10.04) K/mm3 RBC (3.98-5.22) M/mm3 Hgb (11.2-15.7) gm/dl Hct (34.1-44.9) % MCV (79.4-94.8) fl MCH (25.6-32.2) pg MCHC (32.2-35.5) g/dl RDW Std Deviation (36.4-46.3) fL Plt Count (182-369) K/mm3 MPV (9.4-12.3) fl Neut % (Auto) (34.0-71.1) % Lymph % (Auto) (19.3-51.7) % Thomas % (Auto) (4.7-12.5) % Eos % (Auto) (0.7-5.8) Baso % (Auto) (0.1-1.2) % Neut # (Auto) (1.56-6.13) K/mm3 Lymph # (Auto) (1.18-3.74) K/mm3 Thomas # (Auto) (0.24-0.36) K/mm3 Eos # (Auto) (0.04-0.36) K/mm3 Baso # (Auto) (0.01-0.08) K/mm3 Manual Slide Review PT 11.0 (9.7-12.0) SECONDS INR 1.03 APTT 24 D (22-31) SECONDS Sodium 138 (136-145) mEq/L Potassium 4.4 (3.5-5.1) mEq/L Chloride 102 (98-107) mEq/L Carbon Dioxide 28 (21-32) mEq/L Anion Gap 12.4 (5-15) BUN 52 H (7-18) mg/dL Creatinine 2.0 H (0.55-1.02) mg/dL Est Cr Clr Drug Dosing 20.41 mL/min Estimated GFR (MDRD) 25 (>60) mL/min BUN/Creatinine Ratio 26.0 H (14-18) Glucose 123 H (83-115) mg/dL POC Glucose 121 H (83-110) mg/dL Calcium 8.1 L (8.5-10.1) mg/dL Total Bilirubin 0.5 (0.2-1.0) mg/dL AST 13 L (15-37) U/L ALT 12 L (14-59) U/L Alkaline Phosphatase 96 (46-116) U/L Troponin I 0.052 (0.00-0.056) ng/mL Total Protein 6.5 (6.4-8.2) g/dl Albumin 3.0 L (3.4-5.0) g/dl Globulin 3.5 gm/dL Albumin/Globulin Ratio 0.9 L (1-2) 07/04/20 Range/Units 04:55 WBC 4.06 (3.98-10.04) K/mm3 RBC 3.49 L (3.98-5.22) M/mm3 Hgb 9.5 L D (11.2-15.7) gm/dl Hct 32.9 L (34.1-44.9) % MCV 94.3 D (79.4-94.8) fl MCH 27.2 (25.6-32.2) pg MCHC 28.9 L (32.2-35.5) g/dl RDW Std Deviation 49.8 H (36.4-46.3) fL Plt Count 289 D (182-369) K/mm3 MPV 8.9 L (9.4-12.3) fl Neut % (Auto) 75.7 H (34.0-71.1) % Lymph % (Auto) 13.3 L (19.3-51.7) % Thomas % (Auto) 7.1 (4.7-12.5) % Eos % (Auto) 3.2 (0.7-5.8) Baso % (Auto) 0.2 (0.1-1.2) % Neut # (Auto) 3.07 (1.56-6.13) K/mm3 Lymph # (Auto) 0.54 L (1.18-3.74) K/mm3 Thomas # (Auto) 0.29 (0.24-0.36) K/mm3 Eos # (Auto) 0.13 (0.04-0.36) K/mm3 Baso # (Auto) 0.01 (0.01-0.08) K/mm3 Manual Slide Review Abnormal smear PT (9.7-12.0) SECONDS INR APTT (22-31) SECONDS Sodium (136-145) mEq/L Potassium (3.5-5.1) mEq/L Chloride (98-107) mEq/L Carbon Dioxide (21-32) mEq/L Anion Gap (5-15) BUN (7-18) mg/dL Creatinine (0.55-1.02) mg/dL Est Cr Clr Drug Dosing mL/min Estimated GFR (MDRD) (>60) mL/min BUN/Creatinine Ratio (14-18) Glucose (83-115) mg/dL POC Glucose (83-110) mg/dL Calcium (8.5-10.1) mg/dL Total Bilirubin (0.2-1.0) mg/dL AST (15-37) U/L ALT (14-59) U/L Alkaline Phosphatase (46-116) U/L Troponin I (0.00-0.056) ng/mL Total Protein (6.4-8.2) g/dl Albumin (3.4-5.0) g/dl Globulin gm/dL Albumin/Globulin Ratio (1-2) Meds: Medications Discontinued Medications Generic Name Dose Route Start Last Admin Trade Name Freq PRN Reason Stop Dose Admin Hydromorphone HCl 0.25 mg 07/04/20 05:47 07/04/20 05:53 Dilaudid IVPUSH 07/04/20 05:48 0.25 mg ONETIME ONE Administration - Re-Assessments/Exams Free Text/Narrative Re-Assessment/Exam: 07/04/20 06:[address] Luis, on-call neurologist at [facility] in [place] who recommended transferring the patient for urgent MRI. Case was then discussed with Dr. Mortensen, ER physician who kindly accepts the patient. Departure - Departure Time of Disposition: 05:40 Disposition: DC/Tfer to [facility] 02 Clinical Impression: Degenerative cervical spinal stenosis Clinical Impression: (Ruled Out): Cervical myopathy, Cervical stricture or stenosis - Discharge Information Forms: ED Department Discharge Sepsis Event Note (ED) - Evaluation Sepsis Screening Result: No Definite Risk - Focused Exam Vital Signs: Vital Signs Temp Pulse Resp BP Pulse Ox 07/04/20 04:35 36.1 C 81 19 148/62 H 95 - My Orders Last 24 Hours: My Active Orders 07/04/20 04:27 EKG Documentation Completion [RC] STAT 07/04/20 04:28 Cervical Spine wo Cont [CT] Stat Head wo Cont [CT] Stat 07/04/20 05:45 CORONAVIRUS COVID-19 RAPID [MOLEC] Stat - Assessment/Plan Last 24 Hours: My Active Orders 07/04/20 04:27 EKG Documentation Completion [RC] STAT 07/04/20 04:28 Cervical Spine wo Cont [CT] Stat Head wo Cont [CT] Stat 07/04/20 05:45 CORONAVIRUS COVID-19 RAPID [MOLEC] Stat
[2020-07-04] MEDS ORDERED: HYDROmorphone 0.5 MG/0.5 ML Syringe IVPUSH ONE ×2 (05:47→06:23)
[2020-07-04] MEDS ORDERED: Lactated Ringers 1,000 ML ONE (06:31)
[2020-07-04] MEDS ORDERED: Lactated Ringers 1,000 ML IV SCH (06:45)
[2020-07-04 07:00] VITALS: BP 159/71; PULSE 83
--- NOTE | 2020-07-04 09:44 | CT ---
CT cervical spine Technique: Multiple axial sections were obtained from above C2 inferiorly is to the bottom of T2. Reconstructed coronal and sagittal images were obtained. Findings: Severe disc space narrowing is noted at C3-4, C4-5, C5-6, C6-7 and T1-2. Moderate disc space narrowing at C7-T1. Scattered posterior osteophytes are seen throughout the cervical spine. Diffuse anterior osteophytes are also noted throughout the cervical spine. Mild degenerative apophyseal change is scattered throughout the cervical spine and upper thoracic spine. Ligamental nuchal calcification is present. Bony structures are osteopenic. Mild left-sided neural foraminal stenosis and moderate right-sided neural foraminal stenosis is noted at C3-4. Mild bilateral neural foraminal stenosis is noted at C4-5, other neural foramina are fairly well patent. No fracture is appreciated. No acute subluxation is seen. Impression: 1. Diffuse degenerative change as noted above. Diagnostic code #3 This report was dictated in MDT I agree with preliminary report from [facility], finalized on 07/04/20, 6:04 AM [place] Daylight Time
--- NOTE | 2020-07-04 09:51 | CT ---
Head CT Technique: Multiple axial sections through the brain were obtained. Intravenous contrast was not utilized. Comparison: Prior head CT study of 08/27/19. Findings: Ventricles along with basal cisterns and sulci over the convexities are mildly prominent. Minimal areas of diminished densities are scattered within the periventricular white matter most likely due to small vessel ischemic demyelination change. Slight basal ganglia calcification is seen. No acute calvarial abnormality is appreciated. Visualized mastoid sinuses and paranasal sinuses show nothing acute. Atherosclerotic calcification is seen within the vertebral vessels and within the carotid siphon. Impression: 1. Nothing acute is appreciated on noncontrast head CT study. 2. No change is seen as compared to previous head CT exam. Diagnostic code #2 This report was dictated in MDT I agree with preliminary report from [facility], finalized on 07/04/20, 6:06 AM [place] Daylight Time
== END 2020-07-04 06:50 ==
LOC: JD.ED 04:21
DX: R53.1 Weakness (principal); R60.0 Localized edema; E78.00 Pure hypercholesterolemia, unspecified; E66.9 Obesity, unspecified; F41.9 Anxiety disorder, unspecified; F32.9 Major depressive disorder, single episode, unspecified; G43.909 Migraine, unspecified, not intractable, without status migrainosus; E11.22 Type 2 diabetes mellitus with diabetic chronic kidney disease; N18.9 Chronic kidney disease, unspecified; J45.909 Unspecified asthma, uncomplicated; Z88.8 Allergy status to other drugs, medicaments and biological substances; Z91.040 Latex allergy status; Z88.5 Allergy status to narcotic agent; Z91.09 Other allergy status, other than to drugs and biological substances; Z79.82 Long term (current) use of aspirin; Z79.899 Other long term (current) drug therapy; Z68.31 Body mass index [BMI] 31.0-31.9, adult; Z90.49 Acquired absence of other specified parts of digestive tract; Z20.828 Contact with and (suspected) exposure to other viral communicable diseases
CPT/HCPCS: 36415; 70450; 72125; 80053; 82962; 84484; 85025; 85610; 85730; 93005; 96374; 96376; 99285; J1170; J7120; U0002; 93010

== ENCOUNTER 2021-02-07 08:13 | Emergency (ER) | payer MEDICARE, BC ==
[2021-02-07 08:22] VITALS: PULSE 78
[2021-02-07] MEDS ORDERED: Metoclopramide 10 MG/2 ML SDV IVPUSH ONE ×2 (08:29→17:20)
--- NOTE | 2021-02-07 08:29 | EDM.PDOC ---
ED HPI GENERAL MEDICAL PROBLEM - General Chief Complaint: Neurological Problem Stated Complaint: [facility] Time Seen by Provider: 02/07/21 08:21 Source of Information: Reports: Patient History Limitations: Reports: No Limitations - History of Present Illness INITIAL COMMENTS - FREE TEXT/NARRATIVE: 70-year-old female presents to the ED in the accompaniment of her . History suggest gradually worsening weakness over period of a month or more. She fell in the living room this morning her found her lying on the floor. She did not appear to get hurt from the fall. She states she feels lightheaded and dizzy. Her appreciates that she is not eating much at all for the last 2 to 3 days. She is not been taking her medication either which includes Prograf and CellCept due to renal transplant 4 years ago. Clinically does she does feel warm to palpation but she has not appreciated any chills. She thought she might be running a low-grade fever. She has not had any exposure to Covid and has not had COVID-19 illness. Denies cough or sputum production. Denies dysuria urgency or frequency. No diarrhea no vomiting. She has complete loss of appetite however. She will not comment that she has any loss of sense of taste or smell. She reports dyspnea at rest and orthopnea. She has been sleeping sitting up in the easy chair for the last several days. Onset: Gradual Onset Date: 02/04/21 (Has not eaten much for the last 3 days and has not taken any of her medications for the last 3 days.) Duration: Day(s):, Getting Worse Location: Reports: Generalized (Neurolyse weakness with fall in the living room this morning at home.) Quality: Reports: Other Severity: Moderate (Pleat loss of appetite generalized weakness.) Improves with: Reports: None Worsens with: Reports: Movement Context: Denies: Activity (Worse with standing up and walking.), Exercise, Lifting, Sick Contact, Trauma, Other Associated Symptoms: Reports: Cough, Fever/Chills, Loss of Appetite, Malaise, Nausea/Vomiting, Shortness of Breath, Weakness (Transient nausea with no vomiting). Denies: No Other Symptoms, Confusion, Chest Pain, cough w sputum, Diaphoresis, Headaches (She question whether she had a fever. No chills), Rash, Seizure, Syncope Treatments BACKGROUND CHECK COORDINATOR: Reports: Other (see below) (Not taken any medication for 3 days.) - Related Data Allergies Allergy/AdvReac Type Severity Reaction Status Date / Time adhesive Allergy Severe Itching Verified 02/07/21 08:24 latex Allergy Severe Rash Verified 02/07/21 08:24 nickel Allergy Severe Itching Verified 02/07/21 08:24 omeprazole [From Prilosec] Allergy Severe Cannot Verified 02/07/21 08:24 Remember omeprazole magnesium Allergy Severe Hives Verified 02/07/21 08:24 [From Prilosec] oxycodone AdvReac Severe Anxiety Verified 02/07/21 08:24 calcium sodium alginate Allergy Severe Cannot Uncoded 02/07/21 08:24 Remember Home Meds: Home Meds Aspirin [Halfprin] 81 mg PO DAILY 07/02/18 [History] Fluticasone Propionate [Flonase] 1 puff NASBOTH BID 07/02/18 [History] Gabapentin [Neurontin] 100 mg PO TID 07/02/18 [History] Insulin Glargine,Hum.Rec.Anlog [Lantus Solostar] 8 units SQ BEDTIME 07/02/18 [History] Insulin Lispro [Humalog Kwikpen U-100] 5 - 15 unit SQ TID 07/02/18 [History] Loratadine/Pseudoephedrine [Loratadine-Pseudoephed 10-240] 1 each PO DAILY 07/02/18 [History] Sodium Bicarbonate 1,300 mg PO BID 07/02/18 [History] atorvaSTATin [Lipitor] 20 mg PO DAILY 07/02/18 [History] mycophenolate mofetiL [Cellcept] 250 mg PO DAILY 07/02/18 [History] predniSONE [Prednisone] 5 mg PO DAILY 07/02/18 [History] Tacrolimus 1.5 mg PO DAILY 07/03/18 [History] Estrogens, Conjugated [Premarin Vaginal Crm] 1 appful VAG MOWEFR 12/11/18 [History] Lactulose [Cephulac] 10 gm PO DAILY PRN 07/04/20 [History] Tacrolimus [Prograf] 2 mg PO BEDTIME 07/04/20 [History] Diclofenac Sodium [Voltaren 1% Gel] 1 applic TOP QID 02/07/21 [History] PARoxetine [Paxil] 20 mg PO DAILY 02/07/21 [History] Pantoprazole [ProTONIX] 40 mg PO DAILY 02/07/21 [History] Timolol Maleate/PF [Timolol Maleate 0.5% Eye Drop] 1 drop EYEBOTH DAILY 02/07/21 [History] Torsemide [Demadex] 20 mg PO BID 02/07/21 [History] Past Medical History HEENT History: Reports: Glaucoma Cardiovascular History: Reports: High Cholesterol Respiratory History: Reports: Asthma Other Respiratory History: in winter time uses inhaler when get a bad cough or cold. Gastrointestinal History: Reports: Cirrhosis, Hepatitis Other Gastrointestinal History: liver failure Genitourinary History: Reports: Chronic Renal Insuffiency Other Genitourinary History: dialysis m,w,f. Kidney transplant 08/10/2016. [employer] History: Reports: Neurological History: Reports: Migraines, Seizure, Other (See Below) (Peripheral neuropathy both lower extremities for which she takes gabapentin for.) Psychiatric History: Reports: Anxiety, Depression Endocrine/Metabolic History: Reports: Diabetes, Type II, Obesity/BMI 30+ Other Endocrine/Metabolic History: diabetes controlled with diet. Hematologic History: Reports: Anemia, Blood Transfusion(s), Iron Deficiency, Other (See Below) Other Hematologic History: iron transfusions. Immunologic History: Reports: Solid Organ Transplant Other Immunologic History: Kidney transplant 2 years ago (2015) - Infectious Disease History Infectious Disease History: Reports: Chicken Pox, Hepatitis C, Measles, Shingles, Other (See Below) Other Infectious Disease History: food related Hepatitis - Past Surgical History HEENT Surgical History: Reports: Laser Surgery, Tonsillectomy Other HEENT Surgeries/Procedures: several eye surgeries, GI Surgical History: Reports: Appendectomy, Cholecystectomy, Colonoscopy, Hernia, Abdominal Other GI Surgeries/Procedures: gastric bypass x2 Female Surgical History: Reports: Hysterectomy, Other (See Below) Other Female Surgeries/Procedures: kidney transplant Musculoskeletal Surgical History: Reports: Arthroscopic Knee, Hip Replacement, Knee Replacement Other Musculoskeletal Surgeries/Procedures:: left knee arthroscopy and rtk, Social & Family History - Family History Family Medical History: No Pertinent Family History - Caffeine Use Caffeine Use: Reports: Coffee - Living Situation & Occupation Living situation: Reports: Occupation: Retired ED ROS GENERAL - Review of Systems Review Of Systems: See Below Constitutional: Reports: Fever, Malaise, Weakness, Fatigue, Decreased Appetite, Weight Loss. Denies: Chills HEENT: Reports: Glasses Respiratory: Reports: Shortness of Breath (For reading only.), Cough. Denies: Wheezing, Pleuritic Chest Pain, Sputum, Hemoptysis (Nonproductive) Cardiovascular: Reports: Blood Pressure Problem, Dyspnea on Exertion (Lower extremities), Edema, Lightheadedness. Denies: Chest Pain, Claudication, Orthopnea, Palpitations Endocrine: Reports: Fatigue GI/Abdominal: Reports: Anorexia, Decreased Appetite, Nausea. Denies: Abdominal Pain, Constipation, Diarrhea, Vomiting : Reports: No Symptoms Musculoskeletal: Reports: Other (Generalized weakness.) Skin: Reports: Bruising (Multiple bruises abdominal wall from insulin injections.) Neurological: Reports: Dizziness, Difficulty Walking, Weakness, Gait Disturbance. Denies: Confusion, Headache, Numbness, Syncope, Tingling, Trouble Speaking Psychiatric: Reports: Depression Hematologic/Lymphatic: Reports: No Symptoms, Easy Bruising Immunologic: Reports: No Symptoms ED EXAM, NEURO - Physical Exam Exam: See Below Exam Limited By: No Limitations General Appearance: Alert, WD/WN, Mild Distress, Other (She has a repetitive resting tremor of her face with the lips pulling to the right.) Eye Exam: Bilateral Eye: Normal Inspection, PERRL (Mild blepharal pallor. No scleral icterus.) Throat/Mouth: Normal Oropharynx (Tongue is mildly dry white coated.), Other Head Exam: Atraumatic, Normocephalic ( No oropharyngeal infection.), Other Neck: Normal Inspection (Outward signs of head or facial trauma from fall today.), Supple, Non-Tender, Full Range of Motion, Carotid Bruit (Is admitted from her heart as she has a very loud aortic stenosis murmur.). No: Lymphadenopathy (L), Lymphadenopathy (R), Tender Lateral Respiratory/Chest: Respiratory Distress, Rales (Rales both lower lobes slightly worse on the right as compared to the left.). No: Lungs Clear, Normal Breath Sounds (Tachypnea at rest 20 to 22/min. O2 sats only 90 to 91% room air) Cardiovascular: Regular Rate, Rhythm, No Gallop, No JVD, Systolic Murmur (3 out of 6 pansystolic ejection murmur heard at the left lower sternal border that radiates up to the right carotid artery. There is similarly a grade 3 out of 6 holosystolic murmur that radiates to the left axilla compatible with mitral insufficiency murmur.). No: Normal Peripheral Pulses, No Edema GI/Abdominal: Soft, Non-Tender, No Organomegaly, No Mass, Abnormal Bowel Sounds (Gathering Machine Feeder bowel sounds throughout the abdomen.), Other (But ends of renal transplant right lower quadrant. Previous cholecystectomy previous appendectomy and apparently gastric bypass surgery in the past. She does have and abdominal aortic bruit but it is referred from her heart.). No: Guarding, Rigid, Rebound, Tender Neurological: Alert, Normal Dorsiflexion, CN II-XII Intact, Oriented x 3, Abnormal Finger to Nose (Some mild ataxia in [id number] assessment), Difficulty Walking (Weak and fell this morning.). No: Normal Mood/Affect DTR: 0: Patella (R), Patella (L), Achilles (R), Achilles (L), 1+: Bicep (R), Bicep (L) Back Exam: Normal Inspection, Full Range of Motion, Other (No outward signs of trauma to the thoracic or lumbar spine.). No: CVA Tenderness (L), CVA Tenderness (R) Extremities: Normal Inspection, Non-Tender, Pedal Edema (Bilateral total knee replacements. 2+ pitting edema both lower extremities.), Other Psychiatric: Flat Affect Skin Exam: Warm, Dry, Intact, Normal Color, Other (Ecchymoses both sides of the abdominal wall apparently from insulin injections.) #1 Interpretation EKG Date: 02/07/21 Time: 08:36 Rhythm: NSR Rate (Beats/Min): 85 [place]: LAD-Left [place] Deviation (-31 degrees) P-Wave: Enlarged (Consider left atrial hypertrophy) QRS: Other (Early R wave transition consider right ventricular hypertrophy versus septal hypertrophy pattern. There is a delayed R wave transition. Decreased voltage in the limb leads.) ST-T: Other (Nonspecific T wave flattening aVL and lead III) QT: Prolonged (Markedly prolonged) Course - Vital Signs Last Recorded V/S: Last Vital Signs Temp 37.1 C 02/07/21 08:17 Pulse 78 02/07/21 08:17 Resp 19 02/07/21 08:17 BP 151/104 H 02/07/21 08:17 Pulse Ox 88 L 02/07/21 09:35 - Orders/Labs/Meds Orders: Active Orders 24 hr Category Date Time Status EKG Documentation Completion [RC] STAT Care 02/07/21 08:31 Active Oxygen Therapy [RC] ASDIRECTED Care 02/07/21 08:39 Active Abdomen Pelvis wo Cont [CT] Stat Exams 02/07/21 14:41 Taken CULTURE BLOOD [BC] Stat Lab 02/07/21 08:55 Received CULTURE BLOOD [BC] Stat Lab 02/07/21 09:15 Received Dextrose 5%-0.9% NaCl [Dextrose 5%-Normal Saline] 1,000 Med 02/07/21 08:30 Active ml IV ASDIRECTED Blood Culture x2 Reflex Set [OM.PC] Stat Oth 02/07/21 08:32 Ordered Medication Orders Dextrose/Sodium Chloride (Dextrose 5%-Normal Saline) 1,000 mls @ 500 mls/hr IV ASDIRECTED JANAK Last Admin: 02/07/21 09:32 Dose: 500 mls/hr Documented by: EMILE Labs: Laboratory Tests 02/07/21 02/07/21 02/07/21 Range/Units 08:46 08:46 08:55 WBC 6.43 (3.98-10.04) K/mm3 RBC 3.84 L (3.98-5.22) M/mm3 Hgb 10.8 L (11.2-15.7) gm/dl Hct 36.1 (34.1-44.9) % MCV 94.0 (79.4-94.8) fl MCH 28.1 (25.6-32.2) pg MCHC 29.9 L (32.2-35.5) g/dl RDW Std Deviation 45.4 (36.4-46.3) fL Plt Count 171 L D (182-369) K/mm3 MPV 10.9 (9.4-12.3) fl Neutrophils % (Manual) 58 (40-60) % Band Neutrophils % 16 H (0-10) % Lymphocytes % (Manual) 12 L (20-40) % Atypical Lymphs % 0 % Monocytes % (Manual) 11 H (2-10) % Eosinophils % (Manual) 1 (0.7-5.8) % Basophils % (Manual) 2 H (0.1-1.2) Platelet Estimate Adequate Plt Morphology Comment Normal Hypochromasia 2+ moderate Anisocytosis 1+ slight RBC Morph Comment Not Reportable ESR (0-20) mm/hr PT (9.7-12.0) SECONDS INR APTT (21.7-31.4) SECONDS Puncture Site ABG pH (7.35-7.45) ABG pCO2 (35.0-45.0) mmHg ABG pO2 (80.0-100.0) mmHg ABG HCO3 (22.0-26.0) meq/L ABG O2 Saturation (96.0-97.0) % ABG Base Excess (-2-2.0) Bienvenido Test A-a Gradient mmHg O2 Delivery Device Oxygen Flow Rate FiO2 (21.00-100.00) % Sodium (136-145) mEq/L Potassium (3.5-5.1) mEq/L Chloride (98-107) mEq/L Carbon Dioxide (21-32) mEq/L Anion Gap (5-15) BUN (7-18) mg/dL Creatinine (0.55-1.02) mg/dL Est Cr Clr Drug Dosing mL/min Estimated GFR (MDRD) (>60) mL/min BUN/Creatinine Ratio (14-18) Glucose (83-115) mg/dL Hemoglobin A1c ( - 5.6) % Serum Osmolality (280-300) mosm/kg Lactic Acid (0.4-2.0) mmol/L Calcium (8.5-10.1) mg/dL Magnesium (1.8-2.4) mg/dl Total Bilirubin (0.2-1.0) mg/dL AST (15-37) U/L ALT (14-59) U/L Alkaline Phosphatase (46-116) U/L CK-MB (CK-2) (0-3.6) ng/ml Troponin I (0.00-0.056) ng/mL C-Reactive Protein (<1.0) mg/dL NT-Pro-B Natriuret Pep (0-125) pg/mL Total Protein (6.4-8.2) g/dl Albumin (3.4-5.0) g/dl Globulin gm/dL Albumin/Globulin Ratio (1-2) Urine Color Yellow (Yellow) Urine Appearance Clear (Clear) Urine pH 8.0 (5.0-8.0) Ur Specific [place] 1.025 (1.005-1.030) Urine Protein 3+ H (Negative) Urine Glucose (UA) Negative (Negative) Urine Ketones Negative (Negative) Urine Occult Blood 1+ H (Negative) Urine Nitrite Negative (Negative) Urine Bilirubin Negative (Negative) Urine Urobilinogen 0.2 (0.2-1.0) Ur Leukocyte Esterase Negative (Negative) Urine RBC 0-5 (0-5) /hpf Urine WBC 0-5 (0-5) /hpf Ur Epithelial Cells Not seen (0-5) /hpf Urine Bacteria Few (FEW) /hpf Urine Mucus Few (FEW) /hpf Ketones (0.0-0.3) mM SARS-CoV-2 RNA (GERRY) Negative (NEGATIVE) 02/07/21 02/07/21 02/07/21 Range/Units 08:55 08:55 08:55 WBC (3.98-10.04) K/mm3 RBC (3.98-5.22) M/mm3 Hgb (11.2-15.7) gm/dl Hct (34.1-44.9) % MCV (79.4-94.8) fl MCH (25.6-32.2) pg MCHC (32.2-35.5) g/dl RDW Std Deviation (36.4-46.3) fL Plt Count (182-369) K/mm3 MPV (9.4-12.3) fl Neutrophils % (Manual) (40-60) % Band Neutrophils % (0-10) % Lymphocytes % (Manual) (20-40) % Atypical Lymphs % % Monocytes % (Manual) (2-10) % Eosinophils % (Manual) (0.7-5.8) % Basophils % (Manual) (0.1-1.2) Platelet Estimate Plt Morphology Comment Hypochromasia Anisocytosis RBC Morph Comment ESR 15 (0-20) mm/hr PT 12.8 H (9.7-12.0) SECONDS INR 1.20 APTT 31.6 H (21.7-31.4) SECONDS Puncture Site ABG pH (7.35-7.45) ABG pCO2 (35.0-45.0) mmHg ABG pO2 (80.0-100.0) mmHg ABG HCO3 (22.0-26.0) meq/L ABG O2 Saturation (96.0-97.0) % ABG Base Excess (-2-2.0) Bienvenido Test A-a Gradient mmHg O2 Delivery Device Oxygen Flow Rate FiO2 (21.00-100.00) % Sodium 143 (136-145) mEq/L Potassium 4.2 (3.5-5.1) mEq/L Chloride 106 (98-107) mEq/L Carbon Dioxide 24 (21-32) mEq/L Anion Gap 17.2 H (5-15) BUN 45 H (7-18) mg/dL Creatinine 2.5 H (0.55-1.02) mg/dL Est Cr Clr Drug Dosing 5.4 mL/min Estimated GFR (MDRD) 19 (>60) mL/min BUN/Creatinine Ratio 18.0 (14-18) Glucose 185 H (83-115) mg/dL Hemoglobin A1c ( - 5.6) % Serum Osmolality 313 H (280-300) mosm/kg Lactic Acid (0.4-2.0) mmol/L Calcium 8.7 (8.5-10.1) mg/dL Magnesium 1.6 L (1.8-2.4) mg/dl Total Bilirubin 1.1 H (0.2-1.0) mg/dL AST 15 (15-37) U/L ALT 16 (14-59) U/L Alkaline Phosphatase 13 L (46-116) U/L CK-MB (CK-2) 0.9 (0-3.6) ng/ml Troponin I 0.050 (0.00-0.056) ng/mL C-Reactive Protein 5.4 H* (<1.0) mg/dL NT-Pro-B Natriuret Pep (0-125) pg/mL Total Protein 6.7 (6.4-8.2) g/dl Albumin 3.3 L (3.4-5.0) g/dl Globulin 3.4 gm/dL Albumin/Globulin Ratio 1.0 (1-2) Urine Color (Yellow) Urine Appearance (Clear) Urine pH (5.0-8.0) Ur Specific [place] (1.005-1.030) Urine Protein (Negative) Urine Glucose (UA) (Negative) Urine Ketones (Negative) Urine Occult Blood (Negative) Urine Nitrite (Negative) Urine Bilirubin (Negative) Urine Urobilinogen (0.2-1.0) Ur Leukocyte Esterase (Negative) Urine RBC (0-5) /hpf Urine WBC (0-5) /hpf Ur Epithelial Cells (0-5) /hpf Urine Bacteria (FEW) /hpf Urine Mucus (FEW) /hpf Ketones (0.0-0.3) mM SARS-CoV-2 RNA (GERRY) (NEGATIVE) 02/07/21 02/07/21 02/07/21 Range/Units 08:55 08:55 08:55 WBC (3.98-10.04) K/mm3 RBC (3.98-5.22) M/mm3 Hgb (11.2-15.7) gm/dl Hct (34.1-44.9) % MCV (79.4-94.8) fl MCH (25.6-32.2) pg MCHC (32.2-35.5) g/dl RDW Std Deviation (36.4-46.3) fL Plt Count (182-369) K/mm3 MPV (9.4-12.3) fl Neutrophils % (Manual) (40-60) % Band Neutrophils % (0-10) % Lymphocytes % (Manual) (20-40) % Atypical Lymphs % % Monocytes % (Manual) (2-10) % Eosinophils % (Manual) (0.7-5.8) % Basophils % (Manual) (0.1-1.2) Platelet Estimate Plt Morphology Comment Hypochromasia Anisocytosis RBC Morph Comment ESR (0-20) mm/hr PT (9.7-12.0) SECONDS INR APTT (21.7-31.4) SECONDS Puncture Site ABG pH (7.35-7.45) ABG pCO2 (35.0-45.0) mmHg ABG pO2 (80.0-100.0) mmHg ABG HCO3 (22.0-26.0) meq/L ABG O2 Saturation (96.0-97.0) % ABG Base Excess (-2-2.0) Bienvenido Test A-a Gradient mmHg O2 Delivery Device Oxygen Flow Rate FiO2 (21.00-100.00) % Sodium (136-145) mEq/L Potassium (3.5-5.1) mEq/L Chloride (98-107) mEq/L Carbon Dioxide (21-32) mEq/L Anion Gap (5-15) BUN (7-18) mg/dL Creatinine (0.55-1.02) mg/dL Est Cr Clr Drug Dosing mL/min Estimated GFR (MDRD) (>60) mL/min BUN/Creatinine Ratio (14-18) Glucose (83-115) mg/dL Hemoglobin A1c ( - 5.6) % Serum Osmolality (280-300) mosm/kg Lactic Acid 1.2 (0.4-2.0) mmol/L Calcium (8.5-10.1) mg/dL Magnesium (1.8-2.4) mg/dl Total Bilirubin (0.2-1.0) mg/dL AST (15-37) U/L ALT (14-59) U/L Alkaline Phosphatase (46-116) U/L CK-MB (CK-2) (0-3.6) ng/ml Troponin I (0.00-0.056) ng/mL C-Reactive Protein (<1.0) mg/dL NT-Pro-B Natriuret Pep 72805 H (0-125) pg/mL Total Protein (6.4-8.2) g/dl Albumin (3.4-5.0) g/dl Globulin gm/dL Albumin/Globulin Ratio (1-2) Urine Color (Yellow) Urine Appearance (Clear) Urine pH (5.0-8.0) Ur Specific [place] (1.005-1.030) Urine Protein (Negative) Urine Glucose (UA) (Negative) Urine Ketones (Negative) Urine Occult Blood (Negative) Urine Nitrite (Negative) Urine Bilirubin (Negative) Urine Urobilinogen (0.2-1.0) Ur Leukocyte Esterase (Negative) Urine RBC (0-5) /hpf Urine WBC (0-5) /hpf Ur Epithelial Cells (0-5) /hpf Urine Bacteria (FEW) /hpf Urine Mucus (FEW) /hpf Ketones 0.56 (0.0-0.3) mM SARS-CoV-2 RNA (GERRY) (NEGATIVE) 02/07/21 02/07/21 Range/Units 08:55 09:15 WBC (3.98-10.04) K/mm3 RBC (3.98-5.22) M/mm3 Hgb (11.2-15.7) gm/dl Hct (34.1-44.9) % MCV (79.4-94.8) fl MCH (25.6-32.2) pg MCHC (32.2-35.5) g/dl RDW Std Deviation (36.4-46.3) fL Plt Count (182-369) K/mm3 MPV (9.4-12.3) fl Neutrophils % (Manual) (40-60) % Band Neutrophils % (0-10) % Lymphocytes % (Manual) (20-40) % Atypical Lymphs % % Monocytes % (Manual) (2-10) % Eosinophils % (Manual) (0.7-5.8) % Basophils % (Manual) (0.1-1.2) Platelet Estimate Plt Morphology Comment Hypochromasia Anisocytosis RBC Morph Comment ESR (0-20) mm/hr PT (9.7-12.0) SECONDS INR APTT (21.7-31.4) SECONDS Puncture Site Lt radial ABG pH 7.40 (7.35-7.45) ABG pCO2 35.7 (35.0-45.0) mmHg ABG pO2 52.0 L (80.0-100.0) mmHg ABG HCO3 21.7 L (22.0-26.0) meq/L ABG O2 Saturation 86.3 L (96.0-97.0) % ABG Base Excess -2.2 L (-2-2.0) Bienvenido Test Positive A-a Gradient 53 mmHg O2 Delivery Device Room air Oxygen Flow Rate 0.0 FiO2 21.00 (21.00-100.00) % Sodium (136-145) mEq/L Potassium (3.5-5.1) mEq/L Chloride (98-107) mEq/L Carbon Dioxide (21-32) mEq/L Anion Gap (5-15) BUN (7-18) mg/dL Creatinine (0.55-1.02) mg/dL Est Cr Clr Drug Dosing mL/min Estimated GFR (MDRD) (>60) mL/min BUN/Creatinine Ratio (14-18) Glucose (83-115) mg/dL Hemoglobin A1c 8.0 H ( - 5.6) % Serum Osmolality (280-300) mosm/kg Lactic Acid (0.4-2.0) mmol/L Calcium (8.5-10.1) mg/dL Magnesium (1.8-2.4) mg/dl Total Bilirubin (0.2-1.0) mg/dL AST (15-37) U/L ALT (14-59) U/L Alkaline Phosphatase (46-116) U/L CK-MB (CK-2) (0-3.6) ng/ml Troponin I (0.00-0.056) ng/mL C-Reactive Protein (<1.0) mg/dL NT-Pro-B Natriuret Pep (0-125) pg/mL Total Protein (6.4-8.2) g/dl Albumin (3.4-5.0) g/dl Globulin gm/dL Albumin/Globulin Ratio (1-2) Urine Color (Yellow) Urine Appearance (Clear) Urine pH (5.0-8.0) Ur Specific [place] (1.005-1.030) Urine Protein (Negative) Urine Glucose (UA) (Negative) Urine Ketones (Negative) Urine Occult Blood (Negative) Urine Nitrite (Negative) Urine Bilirubin (Negative) Urine Urobilinogen (0.2-1.0) Ur Leukocyte Esterase (Negative) Urine RBC (0-5) /hpf Urine WBC (0-5) /hpf Ur Epithelial Cells (0-5) /hpf Urine Bacteria (FEW) /hpf Urine Mucus (FEW) /hpf Ketones (0.0-0.3) mM SARS-CoV-2 RNA (GERRY) (NEGATIVE) Meds: Medications Generic Name Dose Route Start Last Admin Trade Name Freq PRN Reason Stop Dose Admin Dextrose/Sodium Chloride 1,000 mls @ 500 mls/hr 02/07/21 08:30 02/07/21 09:32 Dextrose 5%-Normal Saline IV 500 mls/hr ASDIRECTED JANAK Administration Discontinued Medications Generic Name Dose Route Start Last Admin Trade Name Freq PRN Reason Stop Dose Admin Bumetanide 1 mg 02/07/21 08:46 02/07/21 09:34 Bumetanide 1 Mg/4 Ml Mdv IVPUSH 02/07/21 08:47 1 mg ONETIME ONE Administration Bumetanide 1 mg 02/07/21 15:19 02/07/21 16:17 Bumetanide 1 Mg/4 Ml Mdv IVPUSH 02/07/21 15:20 1 mg ONETIME ONE Administration Diatrizoate Meglum/Diatrizoate Sod 120 ml 02/07/21 16:18 02/07/21 16:19 Diatrizoate Meglumine/Diatrizoate Sodium 37% 120 Ml Bottle PO 02/07/21 16:19 120 ml ONETIME ONE Administration Piperacillin Sod/Tazobactam 100 mls @ 200 mls/hr 02/07/21 14:42 02/07/21 15:28 Sod 4.5 gm/ Sodium Chloride IV 02/07/21 15:11 200 mls/hr ONETIME ONE Administration Metoclopramide HCl 5 mg 02/07/21 08:29 02/07/21 09:33 Metoclopramide 10 Mg/2 Ml Sdv IVPUSH 02/07/21 08:30 5 mg ONETIME ONE Administration - Radiology Interpretation Free Text/Narrative:: 70-year-old female presents to the ED accompanied by her . She apparently has been exhibiting gradually worsening weakness over the last month. She is fallen 3 times with the most recent fall this morning in the living room onto the carpeted floor without injury. She reports is generalized weakness. She has complete loss of appetite and has not eaten well for 3 days. She has not taken her antirejection medications as she has had a kidney transplant 4 years ago. I Prograf and CellCept. Infectious and taken any of her medications for the last 3 days. She has not eaten hardly at all either. She does appear volume depleted. I suspect she has a metabolic abnormality such as hyperkalemia or hypokalemia which is causing anorexia. IV will be Ringer's lactate at 500 mils per hour. I suspect she could be easily volume overloaded. She has not checked her blood sugars but is taking her insulin apparently. O2 sats are low at 88% to 91%. ABGs to be done. She will then be started on oxygen at 2 L/min by nasal cannula. COVID-19 screen to be done. Chest x-ray portable 1 view to be done. CT head will be done as well since she has had several falls that have been unwitnessed over the last 2 to 3 weeks. There is no outward signs of head or facial trauma on today's exam. - Re-Assessments/Exams Free Text/Narrative Re-Assessment/Exam: 02/07/21 09:32 CT head reveals prominence of the sulci compared with the patient's age. Diffuse small vessel ischemic changes appreciated in both basal ganglia. There is mild calcification in both basal ganglia. There is no intracranial hemorrhage or mass-effect. No fractures identified within the calvarium. There is atherosclerotic calcification within the vertebral vessels and carotid siphon. No abnormalities noted within the visualized mastoid or paranasal sinuses. O2 stats are still staying at 90 to 92%. BP is 138 116 which is unlikely to be correct due to pulse pressure being too close together heart rate is 89 and sinus. 02/07/21 09:33 ABGs reveal a pH of 7.40 PCO2 is 35.7 with a PO2 of 52.0. O2 saturations 86.3% on room air. Urinalysis available shows 3+ protein 1+ occult blood but no signs of infection. Portable chest x-ray reveals moderate cardiomegaly with diffuse vascular congestion pattern. No pleural effusions. Mild tortuous thoracic aorta. 02/07/21 10:40 White count is 6.43 with 58% neutrophils and 16% bands cells. Hemoglobin is 10.8 with hematocrit of 36.1 platelet count slightly low at 171,000. The slide shows 2+ hypochromasia 1+ anisocytosis. PT is 12.8 with an INR of 1.20 and a PTT of 31.6. ABGs revealed a pH of 7.40 PCO2 of 35.7 PO2 was 52.0 oxygen saturation was 86.3% on room air. Hemoglobin A1c is 8.0 lactic acid 1.2 BNP is 26,702. Urine shows 3+ proteinuria 1+ occult blood no signs of infection .Serum ketones mildly elevated at 0.56. Covid 19 screen is negative. 02/07/21 12:08 PT is 12.8 with an INR of 1.20 PTT is 31.6 i.e. she is mildly anticoagulated. Blood gases showed a pH of 7.40 with a PCO2 of 35.7 and a PO2 of 52 on room air. O2 sats are 86.3%. Placed on oxygen at 3 L/min by nasal cannula to achieve O2 sats of 94%. Sodium is 143 with a potassium of 4.2 chloride 106 with a bicarb of 24. Anion gap is elevated at 17.2. BUN is 45 with a creatinine of 2.5 GFR is down to 19 i.e. stage IV renal insufficiency. Glucose 185 with a hemoglobin A1c of 8.0 serum osmolality slightly elevated at 313. Lactic acid 1.2 calcium 8.7 magnesium slightly low at 1.6. Total bilirubin is 1.1 with an AST of 50 and ALT of 16 alk phos days of 13 CK-MB fraction is 0.9 troponin I is 0.050 C-reactive protein is 5.4 BNP is 26,702. Total protein 6.7 02/07/21 15:22 care was delayed in the ER due to critical care patient's which took me away from her care. The concern is a normal white count but differential suggesting 16% bands cells that she may be septic. There is no obvious source of infection in her chest however she does show signs of significant congestive failure. Urinalysis is clear as well. CT of the abdomen will be therefore be performed with oral contrast only as her kidneys are not good enough to accept IV contrast. She will receive a second dose of Bumex 1 mg IV. Plan will also be given her antibiotic is Zosyn 4.5 g IV. 02/07/21 16:25 scan of the abdomen has been completed with oral contrast only. Her kidneys are in poor condition and she only has 1 kidney functioning by her renal transplant kidney in the right lower quadrant. The CT reveals bilateral pleural effusions mild cardiomegaly. Liver appears to be within normal limits without any intraductal dilatation. Gallbladder is absent. Patient has had previous gastric bypass surgery. Spleen appears normal pancreas appears atrophic. Both kidneys are extremely atrophic cortically. Aorta shows diffuse patches of atherosclerotic calcification without any aneurysmal development. She has a transplanted kidney in her right lower quadrant of the abdomen which appears to be functioning well. Do not see any source of infection intra- abdominally. There are a few diverticuli of the colon but no evidence of diverticulitis. The appendix is absent. 02/07/21 16:48 Over read by radiologist in regards to the CT scan of her abdomen is unchanged from my viewpoint. He does suggest that there may be occult pneumonia hiding within the bilateral pulmonary infiltrates as a source of her infection. He describes this as a diffuse parenchymal densities within both sides of the chest. These findings may represent pulmonary edema but difficult to exclude areas of diffuse pneumonia superimposed upon CHF. A Alberto catheter has been placed due to the need for aggressive diuresis and she is too weak to get up to the bedside commode. So far she has diuresed 1600 mils of fluid after receiving 2 doses of Bumex 1 mg strength 8 hours apart. She is still hypoxic on room air. She is scheduled for mitral valve surgery tomorrow which of course will have to be canceled. Due to our hospital being on diversion I will send the patient to [facility] in [place] where she receives her care. Dr. Roque is her maintenance engineer 02/07/21 17:30: I was able to speak to maintenance engineer on Dr Berryra -call through the 1 call nurse at [facility] in [place]. Also spoke with lehr loader on-call and hospitalist on-call. Care has been accepted at [facility] and the patient be transferred to that institution per ground ambulance. Patient will receive cefepime 1 g IV at the request of hospitalist. 02/07/21 17:52 Adams is been slowly climbing and is currently up to 197 103. Patient will be given hydralazine 10 mg IV at this time. 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 Diabetes mellitus complication status: with kidney complications Diabetes mellitus complication detail: with chronic kidney disease - Discharge Information *PRESCRIPTION DRUG MONITORING PROGRAM REVIEWED*: Not Applicable *COPY OF PRESCRIPTION DRUG MONITORING REPORT IN PATIENT ELVIRA: Not Applicable Referrals: Raphael Martinez MD [Primary Care Provider] - Forms: ED Department Discharge Sepsis Event Note (ED) - Focused Exam Vital Signs: Vital Signs Temp Pulse Resp BP Pulse Ox Pulse Ox 02/07/21 09:35 88 L 02/07/21 08:17 37.1 C 78 19 151/104 H 91 L - My Orders Last 24 Hours: My Active Orders 02/07/21 08:30 Dextrose 5%-0.9% NaCl [Dextrose 5%-Normal Saline] 1,000 ml IV ASDIRECTED 02/07/21 08:31 EKG Documentation Completion [RC] STAT 02/07/21 08:32 Blood Culture x2 Reflex Set [OM.PC] Stat 02/07/21 08:39 Oxygen Therapy [RC] ASDIRECTED 02/07/21 08:55 CULTURE BLOOD [BC] Stat 02/07/21 09:15 CULTURE BLOOD [BC] Stat 02/07/21 14:41 Abdomen Pelvis wo Cont [CT] Stat - Assessment/Plan Last 24 Hours: My Active Orders 02/07/21 08:30 Dextrose 5%-0.9% NaCl [Dextrose 5%-Normal Saline] 1,000 ml IV ASDIRECTED 02/07/21 08:31 EKG Documentation Completion [RC] STAT 02/07/21 08:32 Blood Culture x2 Reflex Set [OM.PC] Stat 02/07/21 08:39 Oxygen Therapy [RC] ASDIRECTED 02/07/21 08:55 CULTURE BLOOD [BC] Stat 02/07/21 09:15 CULTURE BLOOD [BC] Stat 02/07/21 14:41 Abdomen Pelvis wo Cont [CT] Stat
[2021-02-07] MEDS ORDERED: Dextrose 5%-0.9% NaCl 1,000 ML IV SCH (08:30)
[2021-02-07] MEDS ORDERED: Bumetanide 1 MG/4 ML MDV IVPUSH ONE ×2 (08:46→15:19)
--- NOTE | 2021-02-07 09:47 | CT ---
Head CT Technique: Multiple axial sections through the brain were obtained. Comparison: Prior head CT exam of 07/04/20 Findings: Ventricles along with basal cisterns and sulci over the convexities are mildly prominent. There are mild areas of diminished density within the periventricular white matter most likely due to stable small vessel ischemic demyelination change. Slight basal ganglia calcification is noted. No other abnormal parenchymal densities are seen. There is atherosclerotic calcification within the vertebral vessels and carotid siphon. Bone window settings were reviewed which show no acute abnormality within the visualized mastoid sinuses or paranasal sinuses. No acute calvarial abnormality is appreciated. Impression: 1. Mild senescent change as noted above. 2. Nothing acute is appreciated on noncontrast head CT exam. Diagnostic code #2
--- NOTE | 2021-02-07 09:51 | CR ---
Chest: Portable view of the chest was obtained. Comparison: Prior chest CT study of 06/16/20 and chest x-ray of 08/27/19. Heart is enlarged. Pulmonary vessels are diffusely increased. Lungs otherwise are clear. Bony structures are grossly intact. Impression: 1. Findings suspicious for CHF. Diagnostic code #3
[2021-02-07] MEDS ORDERED: Piperacillin/Tazobactam 4.5 GM in Sodium Chloride 0.9% 100 ML IV ONE (14:42)
[2021-02-07] MEDS ORDERED: Diatrizoate Meglumine/Diatrizoate Sodium 37% 120 ML Bottle PO ONE (16:18)
--- NOTE | 2021-02-07 16:52 | CT ---
CT abdomen and pelvis Technique: Multiple axial sections were obtained from above the dome of the diaphragm inferiorly to the pubic symphysis. Intravenous contrast was not utilized. Oral contrast has been given. Reconstructed coronal and sagittal images were obtained. Findings: Multiple patchy areas of increased density are seen within both sides of the chest. Small bilateral pleural effusions are noted. Heart is enlarged. Mitral annulus calcification is noted. Noncontrast appearance of the liver appears to be within normal limits. Biliary stents are noted. Prior stomach surgery is present. Extensive vascular calcification is noted. Spleen size is normal. Adrenal glands show no nodule. Pancreas shows no discrete abnormality. Surgical clips are seen from prior cholecystectomy. Atrophied [place] kidneys are noted. Abdominal aorta and iliac vessels show atherosclerotic calcification. No aneurysm is seen. No retroperitoneal adenopathy is seen. Transplanted kidney is noted within the right pelvis. No pelvic mass or adenopathy is noted. Surgical clips are seen within the pelvis. No free fluid or inflammatory change is seen within the abdomen or pelvis. Appendix is not visualized. Right hip prosthesis is noted. Degenerative change scattered within the spine. Impression: 1. Small bilateral pleural effusions, cardiomegaly with mitral annulus calcification. 2. Diffuse parenchymal densities within both sides of the chest. These findings may represent pulmonary edema but difficult to exclude areas of diffuse pneumonia superimposed upon CHF. 3. Other prior surgery and transplant kidney as noted above. Nothing acute is definitely appreciated on CT study of the abdomen and pelvis. Diagnostic code #3
[2021-02-07] MEDS ORDERED: Hydrocortisone Sodium Succinate 100 MG/2 ML SDV IVPUSH ONE ×2 (17:18→17:19)
[2021-02-07] MEDS ORDERED: Cefepime 1 GM in Premix Bag 1 BAG IV ONE (17:36)
[2021-02-07] MEDS ORDERED: hydrALAZINE 20 MG/ML SDV IVPUSH ONE (17:51)
[2021-02-07 18:33] VITALS: BP 186/80
== END 2021-02-07 18:20 ==
LOC: JD.ED 08:13
DX: S30.1XXA Contusion of abdominal wall, initial encounter (principal); E11.22 Type 2 diabetes mellitus with diabetic chronic kidney disease; N18.4 Chronic kidney disease, stage 4 (severe); I50.9 Heart failure, unspecified; D72.825 Bandemia; F19.20 Other psychoactive substance dependence, uncomplicated; R09.02 Hypoxemia; E78.00 Pure hypercholesterolemia, unspecified; J45.909 Unspecified asthma, uncomplicated; R23.1 Pallor; E66.9 Obesity, unspecified; Z94.0 Kidney transplant status; Z79.82 Long term (current) use of aspirin; Z79.4 Long term (current) use of insulin; Z79.899 Other long term (current) drug therapy; Z91.048 Other nonmedicinal substance allergy status; Z91.040 Latex allergy status; Z91.81 History of falling; Z88.8 Allergy status to other drugs, medicaments and biological substances; Z88.5 Allergy status to narcotic agent; W18.30XA Fall on same level, unspecified, initial encounter; Y92.009 Unspecified place in unspecified non-institutional (private) residence as the place of occurrence of the external cause; Z20.822 Contact with and (suspected) exposure to COVID-19
CPT/HCPCS: 36415; 36600; 51702; 70450; 71045; 74176; 80053; 81001; 82009; 82553; 82803; 83036; 83605; 83735; 83880; 83930; 84484; 85007; 85027; 85610; 85652; 85730; 86140; 87040; 93005; 96365; 96367; 96375; 96376; 99285; J0360; J0692; J1720; J2543; J2765; J3490; J7042; Q9963; U0002; 93010